=== PATIENT | female | born 1970 | race Caucasian/White ===

== ENCOUNTER 2019-04-23 11:45 | Inpatient (IN) | payer BC ==
[2019-04-23] MEDS ORDERED: HYDROmorphone 1 MG/ML Syringe IVPUSH ONE (12:42)
[2019-04-23] MEDS ORDERED: Metoclopramide 10 MG/2 ML SDV IVPUSH ONE (12:42)
[2019-04-23] MEDS ORDERED: Lactated Ringers 1,000 ML IV SCH (12:45)
--- NOTE | 2019-04-23 12:48 | EDM.PDOC ---
ED HPI GENERAL MEDICAL PROBLEM - General Chief Complaint: Abdominal Pain Stated Complaint: DIVERTICULITIS Time Seen by Provider: 04/23/19 12:35 Source of Information: Reports: Patient, RN History Limitations: Reports: Other (no old records) - History of Present Illness INITIAL COMMENTS - FREE TEXT/NARRATIVE: 48 yo female with a pHx of recurrent diverticulitis developed LLQ abdominal pain this past Monday that has progressed since then. Has felt feverish at times. Has not had a BM for the past 2 days now and is vomiting with a sense of abdominal distention. Has increased LLQ pain with coughing or moving. PHx of a lap band procedure. Onset: Gradual Onset Date: 04/20/19 Duration: Day(s): (3+), Getting Worse Location: Reports: Abdomen Quality: Reports: Ache Severity: Moderate Improves with: Reports: Rest Worsens with: Reports: Movement Context: Reports: Other (See HPI) Associated Symptoms: Reports: Fever/Chills, Loss of Appetite, Nausea/Vomiting Treatments STRETCHER AND DRIER: Reports: Other (see below) (none) Left Upper Abdomen Pain Score (Numeric/FACES): 10 - Related Data Allergies Allergy/AdvReac Type Severity Reaction Status Date / Time azithromycin [From Zithromax] Allergy Rash Verified 04/23/19 12:22 Home Meds: Home Meds NK [No Known Home Meds] 04/23/19 [History] Past Medical History HEENT History: Reports: Impaired Vision Gastrointestinal History: Reports: Diverticulosis [employer] History: Reports: Neurological History: Reports: CVA Endocrine/Metabolic History: Reports: Obesity/BMI 30+ Hematologic History: Reports: Blood Transfusion(s) - Infectious Disease History Infectious Disease History: Reports: Chicken Pox - Past Surgical History GI Surgical History: Reports: Appendectomy, Cholecystectomy, Colonoscopy, Other (See Below) Other GI Surgeries/Procedures: gastroplasty banding 2001 aprox Female Surgical History: Reports: Hysterectomy Social & Family History - Tobacco Use Smoking Status *Q: Never Smoker Second Hand Smoke Exposure: No - Caffeine Use Caffeine Use: Reports: Coffee - Alcohol Use Days Per Week of Alcohol Use: 0 - Recreational Drug Use Recreational Drug Use: No ED ROS GENERAL - Review of Systems Review Of Systems: See Below Constitutional: Reports: Fever, Chills HEENT: Reports: No Symptoms Respiratory: Reports: No Symptoms Cardiovascular: Reports: No Symptoms Endocrine: Reports: No Symptoms GI/Abdominal: Reports: Abdominal Pain, Decreased Appetite, Distension, Nausea, Vomiting. Denies: Black Stool, Bloody Stool, Constipation, Diarrhea, Hematemesis, Hematochezia : Reports: No Symptoms Musculoskeletal: Reports: No Symptoms Skin: Reports: No Symptoms Neurological: Reports: No Symptoms Psychiatric: Reports: No Symptoms ED EXAM, GI/ABD - Physical Exam Exam: See Below Exam Limited By: No Limitations General Appearance: Alert, WD/WN, No Apparent Distress Eyes: Bilateral: Normal Appearance Ears: Normal External Exam, Hearing Grossly Normal Nose: Normal Inspection, Normal Mucosa, No Blood Throat/Mouth: Normal Inspection, Normal Lips, Normal Oropharynx, Normal Voice, No Airway Compromise Head: Atraumatic, Normocephalic Neck: Normal Inspection Respiratory/Chest: No Respiratory Distress, Lungs Clear, Normal Breath Sounds, No Accessory Muscle Use Cardiovascular: Regular Rate, Rhythm, No Edema GI/Abdominal Exam: Normal Bowel Sounds, Soft, Distended (? very slight, not dull with percussion.), Guarding, Rebound, Tender (LLQ). No: No Distention Back Exam: Normal Inspection. No: CVA Tenderness (R), CVA Tenderness (L) Extremities: Normal Inspection, Normal Range of Motion, Non-Tender Neurological: Alert, Oriented, CN II-XII Intact, Normal Cognition, No Motor/ Sensory Deficits Psychiatric: Normal Affect, Normal Mood Skin Exam: Warm, Dry, Intact, Normal Color, No Rash Course - Vital Signs Text/Narrative:: Dr. Larsen called @ 1515h Last Recorded V/S: Last Vital Signs Temp 36.9 C 04/23/19 12:21 Pulse 80 04/23/19 15:03 Resp 16 04/23/19 12:21 BP 100/67 04/23/19 15:03 Pulse Ox 100 04/23/19 12:21 - Orders/Labs/Meds Orders: Active Orders 24 hr Category Date Time Status Lactated Ringers [Ringers, Lactated] 1,000 ml Med 04/23/19 12:45 Active IV ASDIRECTED Sodium Chloride 0.9% [Normal Saline] 100 ml Med 04/23/19 13:30 Active IV ASDIRECTED Sodium Chloride 0.9% [Saline Flush] Med 04/23/19 13:21 Active 10 ml FLUSH ASDIRECTED PRN Medication Orders Lactated Ringer's (Ringers, Lactated) 1,000 mls @ 150 mls/hr IV ASDIRECTED NATALIE Last Admin: 04/23/19 12:53 Dose: 150 mls/hr Sodium Chloride (Normal Saline) 100 mls @ 3 mls/sec IV ASDIRECTED NATALIE Last Admin: 04/23/19 14:13 Dose: 3 mls/sec Sodium Chloride (Saline Flush) 10 ml FLUSH ASDIRECTED PRN PRN Reason: Keep Vein Open Last Admin: 04/23/19 14:13 Dose: 10 ml Labs: Laboratory Tests 04/23/19 04/23/19 04/23/19 Range/Units 12:48 12:48 12:48 WBC 12.6 H (4.5-11.0) K/uL RBC 3.99 (3.30-5.50) M/uL Hgb 12.2 (12.0-15.0) g/dL Hct 36.7 (36.0-48.0) % MCV 92 (80-98) fL MCH 31 (27-31) pg MCHC 33 (32-36) % Plt Count 278 (150-400) K/uL Sodium 137 L (140-148) mmol/L Potassium 3.3 L (3.6-5.2) mmol/L Chloride 102 (100-108) mmol/L Carbon Dioxide 23 (21-32) mmol/L Anion Gap 15.3 H (5.0-14.0) mmol/L BUN 5 L (7-18) mg/dL Creatinine 0.8 (0.6-1.0) mg/dL Est Cr Clr Drug Dosing 76.54 mL/min Estimated GFR (MDRD) > 60 (>60) Glucose 102 (74-106) mg/dL Calcium 9.3 (8.5-10.1) mg/dL C-Reactive Protein 19.29 H (0.0-0.3) mg/dL Urine Color Urine Appearance Urine pH (4.5-8.0) Ur Specific [place] (1.008-1.030) Urine Protein (NEGATIVE) mg/dL Urine Glucose (UA) (NEGATIVE) mg/dL Urine Ketones (NEGATIVE) mg/dL Urine Occult Blood (NEGATIVE) Urine Nitrite (NEGATIVE) Urine Bilirubin (NEGATIVE) Urine Urobilinogen (NORMAL) mg/dL Ur Leukocyte Esterase (NEGATIVE) Urine RBC (0-5) Urine WBC (0-5) Ur Epithelial Cells Amorphous Sediment Urine Bacteria Urine Mucus 04/23/19 Range/Units 13:39 WBC (4.5-11.0) K/uL RBC (3.30-5.50) M/uL Hgb (12.0-15.0) g/dL Hct (36.0-48.0) % MCV (80-98) fL MCH (27-31) pg MCHC (32-36) % Plt Count (150-400) K/uL Sodium (140-148) mmol/L Potassium (3.6-5.2) mmol/L Chloride (100-108) mmol/L Carbon Dioxide (21-32) mmol/L Anion Gap (5.0-14.0) mmol/L BUN (7-18) mg/dL Creatinine (0.6-1.0) mg/dL Est Cr Clr Drug Dosing mL/min Estimated GFR (MDRD) (>60) Glucose (74-106) mg/dL Calcium (8.5-10.1) mg/dL C-Reactive Protein (0.0-0.3) mg/dL Urine Color Yellow Urine Appearance Cloudy Urine pH 6.0 (4.5-8.0) Ur Specific [place] 1.015 (1.008-1.030) Urine Protein Negative (NEGATIVE) mg/dL Urine Glucose (UA) Normal (NEGATIVE) mg/dL Urine Ketones 50 H (NEGATIVE) mg/dL Urine Occult Blood Negative (NEGATIVE) Urine Nitrite Negative (NEGATIVE) Urine Bilirubin Negative (NEGATIVE) Urine Urobilinogen Normal (NORMAL) mg/dL Ur Leukocyte Esterase Negative (NEGATIVE) Urine RBC 0-5 (0-5) Urine WBC 0-5 (0-5) Ur Epithelial Cells Many Amorphous Sediment Moderate Urine Bacteria Many Urine Mucus Many Meds: Medications Generic Name Dose Route Start Last Admin Trade Name Freq PRN Reason Stop Dose Admin Lactated Ringer's 1,000 mls @ 150 mls/hr 04/23/19 12:45 04/23/19 12:53 Ringers, Lactated IV 150 mls/hr ASDIRECTED NATALIE Administration Sodium Chloride 100 mls @ 3 mls/sec 04/23/19 13:30 04/23/19 14:13 Normal Saline IV 3 mls/sec ASDIRECTED NATALIE Administration Sodium Chloride 10 ml 04/23/19 13:21 04/23/19 14:13 Saline Flush FLUSH 10 ml ASDIRECTED PRN Administration Keep Vein Open Discontinued Medications Generic Name Dose Route Start Last Admin Trade Name Belen PRN Reason Stop Dose Admin Hydromorphone HCl 1 mg 04/23/19 12:42 04/23/19 13:15 Dilaudid IVPUSH 04/23/19 12:43 1 mg ONETIME ONE Administration Iopamidol 150 ml 04/23/19 13:30 04/23/19 14:12 Isovue-300 (61%) IV 138 ml . DIRECTED NATALIE Administration Metoclopramide HCl 10 mg 04/23/19 12:42 04/23/19 13:15 Reglan IVPUSH 04/23/19 12:43 10 mg ONETIME ONE Administration - Radiology Interpretation Free Text/Narrative:: CT abd/pelvis with IV contrast- Departure - Departure Time of Disposition: 15:25 Disposition: Admitted As Inpatient 65 Condition: Fair Clinical Impression: Hypokalemia, Colitis - Discharge Information *PRESCRIPTION DRUG MONITORING PROGRAM REVIEWED*: No *COPY OF PRESCRIPTION DRUG MONITORING REPORT IN PATIENT EDIS: No Referrals: Bernice Zhong DO [Primary Care Provider] - Forms: ED Department Discharge - My Orders Last 24 Hours: My Active Orders 04/23/19 12:45 Lactated Ringers [Ringers, Lactated] 1,000 ml IV ASDIRECTED 04/23/19 13:21 Sodium Chloride 0.9% [Saline Flush] 10 ml FLUSH ASDIRECTED PRN 04/23/19 13:30 Sodium Chloride 0.9% [Normal Saline] 100 ml IV ASDIRECTED - Assessment/Plan Last 24 Hours: My Active Orders 04/23/19 12:45 Lactated Ringers [Ringers, Lactated] 1,000 ml IV ASDIRECTED 04/23/19 13:21 Sodium Chloride 0.9% [Saline Flush] 10 ml FLUSH ASDIRECTED PRN 04/23/19 13:30 Sodium Chloride 0.9% [Normal Saline] 100 ml IV ASDIRECTED
[2019-04-23] MEDS ORDERED: Sodium Chloride 0.9% 10 ML Syringe FLUSH PRN ×2 (13:21→16:31)
[2019-04-23] MEDS ORDERED: Iopamidol 612 MG/ML 150 ML Bottle IV SCH (13:30)
[2019-04-23] MEDS ORDERED: Sodium Chloride 0.9% 100 ML IV SCH (13:30)
--- NOTE | 2019-04-23 14:54 | CRLCT ---
INDICATION: Right lower quadrant pain with elevated white blood cell count TECHNIQUE: CT abdomen and pelvis acquired with IV contrast. 130 cc Isovue-300 COMPARISON: None FINDINGS: Lower chest: Unremarkable. Liver: Unremarkable. Spleen: Unremarkable. Pancreas: Unremarkable. Gallbladder and bile ducts: Cholecystectomy. Kidneys: Unremarkable. Adrenal glands: Unremarkable. GI tract: Thickening of the distal descending and proximal sigmoid colon with adjacent pericolonic fat stranding. This may represent colitis given the long segment involvement or possibly diverticulitis. Appendix is not visualized. Vascular structures: Unremarkable. Lymph nodes: Unremarkable. Miscellaneous: Unremarkable. No free air. Small amount of fluid in the pelvis. Pelvic Organs: Mild diffuse bladder wall thickening Bones: Unremarkable for age. IMPRESSION: Long segment thickening of the descending and sigmoid colon with adjacent pericolonic fat stranding. Findings may represent colitis given his long segment involvement although diverticulitis cannot be excluded. Appendix not visualized. Dictated by Fred Sarabia MD @ 04/23/2019 2:52:58 PM Please note that all CT scans at this facility use dose modulation, iterative reconstruction, and/or weight-based dosing when appropriate to reduce radiation dose to as low as reasonably achievable. Dictated by: Fred Sarabia MD @ 04/23/2019 14:53:35 (Electronically Signed)
--- NOTE | 2019-04-23 15:50 | PCM.HP ---
H&P History of Present Illness - General Date of Service: 04/23/19 Admit Problem/Dx: Admission Diagnosis/Problem Admission Diagnosis/Problem Diverticulitis Source of Information: Patient, Family, Provider, RN Notes Reviewed History Limitations: Reports: No Limitations - History of Present Illness Initial Comments - Free Text/Narative: Ms. Vazquez is a 48-year-old woman who was admitted through the emergency department with left lower quadrant abdominal pain, diarrhea, nausea, and vomiting. She has had a history of recurrent episodes of diverticulitis. Recent symptoms have been consistent with that but more intense than his noted in the past. Pain is described as an intense ache with episodes of sharper pain occurring in the left lower quadrant, there is been no radiation, no precipitating or relieving factors. Pain is been present now over the past 4 days. She has had nausea vomiting and episodes of diarrhea. She has not taken her check temperature but has felt feverish and also had chills with decreased appetite. On evaluation in the emergency department white blood cell count is modestly elevated, CRP is significantly elevated. CT scan of the abdomen shows an area of the descending and sigmoid colon with significant inflammation. This area is larger than would typically be expected with diverticulitis and may represent underlying colitis. Left Upper Abdomen Pain Score (Numeric/FACES): 10 - Related Data Allergies/Adverse Reactions: Allergies Allergy/AdvReac Type Severity Reaction Status Date / Time azithromycin [From Zithromax] Allergy Rash Verified 04/23/19 12:22 Home Medications: Home Meds NK [No Known Home Meds] 04/23/19 [History] Past Medical History HEENT History: Reports: Impaired Vision Gastrointestinal History: Reports: Diverticulosis [employer] WORK[employer] History: Reports: Neurological History: Reports: CVA Endocrine/Metabolic History: Reports: Obesity/BMI 30+ Hematologic History: Reports: Blood Transfusion(s) - Infectious Disease History Infectious Disease History: Reports: Chicken Pox - Past Surgical History GI Surgical History: Reports: Appendectomy, Cholecystectomy, Colonoscopy, Other (See Below) Other GI Surgeries/Procedures: gastroplasty banding 2000 aprox Female Surgical History: Reports: Hysterectomy Social & Family History - Tobacco Use Smoking Status *Q: Never Smoker Second Hand Smoke Exposure: No - Caffeine Use Caffeine Use: Reports: Coffee - Alcohol Use Days Per Week of Alcohol Use: 0 - Recreational Drug Use Recreational Drug Use: No H&P Review of Systems - Review of Systems: Review Of Systems: See Below General: Reports: Fever, Chills, Weakness, Decreased Appetite HEENT: Reports: No Symptoms Pulmonary: Reports: No Symptoms Cardiovascular: Reports: No Symptoms Gastrointestinal: Reports: Abdominal Pain, Diarrhea, Decreased Appetite, Distension, Nausea, Vomiting. Denies: Constipation, Difficulty Swallowing, Hematochezia, Melena Genitourinary: Reports: No Symptoms Musculoskeletal: Reports: No Symptoms Skin: Reports: No Symptoms Psychiatric: Reports: No Symptoms Neurological: Reports: No Symptoms Hematologic/Lymphatic: Reports: No Symptoms Immunologic: Reports: No Symptoms Exam - Exam Exam: See Below - Vital Signs Vital Signs: Last Vital Signs Temp 98.4 F 04/23/19 12:21 Pulse 80 04/23/19 15:03 Resp 16 04/23/19 12:21 BP 100/67 04/23/19 15:03 Pulse Ox 100 04/23/19 12:21 Weight: 203 lb 0.732 oz - Exam General: Alert, Oriented, Cooperative, Moderate Distress HEENT: Conjunctiva Clear, Hearing Intact, Mucosa Moist & [place], Normal Nasal Septum, Posterior Pharynx Clear, Pupils Equal Neck: Supple, Trachea Midline, +2 Carotid Pulse wo Bruit Lungs: Clear to Auscultation, Normal Respiratory Effort Cardiovascular: Regular Rate, Regular Rhythm, Normal S1, Normal S2. No: Systolic Murmur, Diastolic Murmur GI/Abdominal Exam: Soft, No Organomegaly, Distended, Rebound, Tender. No: Guarding, Rigid Back Exam: Normal Inspection, Full Range of Motion Extremities: Non-Tender, No Pedal Edema Skin: Warm, Dry, Intact Neurological: Cranial Nerves Intact, Strength Equal Bilateral, Normal Speech, Normal Tone, Sensation Intact. No: Focal Deficit Neuro Extensive - Mental Status: Alert, Oriented x3, Normal Mood/Affect, Normal Cognition, Memory Intact - Patient Data Lab Results Last 24 hrs: Laboratory Results - last 24 hr 04/23/19 04/23/19 04/23/19 Range/Units 12:48 12:48 12:48 WBC 12.6 H (4.5-11.0) K/uL RBC 3.99 (3.30-5.50) M/uL Hgb 12.2 (12.0-15.0) g/dL Hct 36.7 (36.0-48.0) % MCV 92 (80-98) fL MCH 31 (27-31) pg MCHC 33 (32-36) % Plt Count 278 (150-400) K/uL Sodium 137 L (140-148) mmol/L Potassium 3.3 L (3.6-5.2) mmol/L Chloride 102 (100-108) mmol/L Carbon Dioxide 23 (21-32) mmol/L Anion Gap 15.3 H (5.0-14.0) mmol/L BUN 5 L (7-18) mg/dL Creatinine 0.8 (0.6-1.0) mg/dL Est Cr Clr Drug Dosing 76.54 mL/min Estimated GFR (MDRD) > 60 (>60) Glucose 102 (74-106) mg/dL Calcium 9.3 (8.5-10.1) mg/dL C-Reactive Protein 19.29 H (0.0-0.3) mg/dL Urine Color Urine Appearance Urine pH (4.5-8.0) Ur Specific [place] (1.008-1.030) Urine Protein (NEGATIVE) mg/dL Urine Glucose (UA) (NEGATIVE) mg/dL Urine Ketones (NEGATIVE) mg/dL Urine Occult Blood (NEGATIVE) Urine Nitrite (NEGATIVE) Urine Bilirubin (NEGATIVE) Urine Urobilinogen (NORMAL) mg/dL Ur Leukocyte Esterase (NEGATIVE) Urine RBC (0-5) Urine WBC (0-5) Ur Epithelial Cells Amorphous Sediment Urine Bacteria Urine Mucus 04/23/19 Range/Units 13:39 WBC (4.5-11.0) K/uL RBC (3.30-5.50) M/uL Hgb (12.0-15.0) g/dL Hct (36.0-48.0) % MCV (80-98) fL MCH (27-31) pg MCHC (32-36) % Plt Count (150-400) K/uL Sodium (140-148) mmol/L Potassium (3.6-5.2) mmol/L Chloride (100-108) mmol/L Carbon Dioxide (21-32) mmol/L Anion Gap (5.0-14.0) mmol/L BUN (7-18) mg/dL Creatinine (0.6-1.0) mg/dL Est Cr Clr Drug Dosing mL/min Estimated GFR (MDRD) (>60) Glucose (74-106) mg/dL Calcium (8.5-10.1) mg/dL C-Reactive Protein (0.0-0.3) mg/dL Urine Color Yellow Urine Appearance Cloudy Urine pH 6.0 (4.5-8.0) Ur Specific [place] 1.015 (1.008-1.030) Urine Protein Negative (NEGATIVE) mg/dL Urine Glucose (UA) Normal (NEGATIVE) mg/dL Urine Ketones 50 H (NEGATIVE) mg/dL Urine Occult Blood Negative (NEGATIVE) Urine Nitrite Negative (NEGATIVE) Urine Bilirubin Negative (NEGATIVE) Urine Urobilinogen Normal (NORMAL) mg/dL Ur Leukocyte Esterase Negative (NEGATIVE) Urine RBC 0-5 (0-5) Urine WBC 0-5 (0-5) Ur Epithelial Cells Many Amorphous Sediment Moderate Urine Bacteria Many Urine Mucus Many Result Diagrams: 04/23/19 12:48 04/23/19 12:48 *Q Meaningful Use (ADM) - VTE Risk Assess *Q Each Risk Factor Represents 1 Point: Age 41 - 59 years, Obesity ( BMI > 25 kg/m2 ) Total Score 1 Point Risk Factors: 2 Each Risk Factor Represents 2 Points: None Total Score 2 Point Risk Factors: 0 Each Risk Factor Represents 3 Points: None Total Score 3 Point Risk Factors: 0 Each Risk Factor Represents 5 Points: None Total Score 5 Point Risk Factors: 0 Venous Thromboembolism Risk Factor Score *Q: 2 Problem List Initiated/Reviewed/Updated: Yes Orders Last 24hrs: Active Orders 24 hr Category Date Time Status Patient Status Manage Transfer [TRANSFER] Routine ADT 04/23/19 15:37 Active Lactated Ringers [Ringers, Lactated] 1,000 ml Med 04/23/19 12:45 Active IV ASDIRECTED Sodium Chloride 0.9% [Normal Saline] 100 ml Med 04/23/19 13:30 Active IV ASDIRECTED Sodium Chloride 0.9% [Saline Flush] Med 04/23/19 13:21 Active 10 ml FLUSH ASDIRECTED PRN Resuscitation Status Routine Resus Stat 04/23/19 15:39 Ordered Medication Orders Lactated Ringer's (Ringers, Lactated) 1,000 mls @ 150 mls/hr IV ASDIRECTED NATALIE Last Admin: 04/23/19 12:53 Dose: 150 mls/hr Sodium Chloride (Normal Saline) 100 mls @ 3 mls/sec IV ASDIRECTED NATALIE Last Admin: 04/23/19 14:13 Dose: 3 mls/sec Sodium Chloride (Saline Flush) 10 ml FLUSH ASDIRECTED PRN PRN Reason: Keep Vein Open Last Admin: 04/23/19 14:13 Dose: 10 ml Assessment/Plan Comment:: ASSESSMENT AND PLAN DIVERTICULITIS/COLITIS-symptoms consistent with previous episodes of diverticulitis although more intense and prolonged. Elevation white blood cell count, CRP, with evidence of colon inflammation in the descending and sigmoid colon seen on CT scan. -Nothing by mouth -IV fluids for hydration -Pain and nausea medication as needed -IV Unasyn and Azactam -Consider colonoscopy for further evaluation RECENT TIA-symptoms of left-sided weakness 5 days ago, evaluated with hospitalization in [facility]. No underlying etiology found and no further evaluation or management recommended MAINTENANCE ISSUES -DVT prophylaxis; scuds -GI prophylaxis; Protonix 40 mg IV daily -Hanson catheter; not indicated -Nutrition; nothing by mouth -Nicotine dependence; not required CODE STATUS-FULL CODE ADMISSION STATUS-patient will be admitted to inpatient status, expect at least a 2 night hospital stay for evaluation and management of problems as outlined above. At the time of this admission I do not reasonably expected evaluation and management of this problem will require more than a 96 hour hospital stay. DISPOSITION-anticipate discharge to home after the hospital stay. PRIMARY CARE PROVIDER-she is from [facility] where she receives her primary care
[2019-04-23] MEDS ORDERED: Acetaminophen 325 MG Tab PO PRN (16:31)
[2019-04-23] MEDS ORDERED: HYDROmorphone 0.5 MG/0.5 ML Syringe IVPUSH PRN (16:31)
[2019-04-23] MEDS ORDERED: Ondansetron 4 MG/2 ML SDV IV PRN (16:31)
[2019-04-23] MEDS: Ampicillin/Sulbactam Na 1.5 GM in Sodium Chloride 0.9% 50 ML IV SCH ×2 (17:17→22:38)
[2019-04-23] MEDS: Aztreonam 1 GM in Sodium Chloride 0.9% 100 ML IV SCH (19:49)
[2019-04-23] MEDS: Pantoprazole 40 MG Vial IVPUSH SCH (19:53)
[2019-04-23] MEDS: Acetaminophen/HYDROcodone 325-5 MG Tab PO PRN (19:58)
[2019-04-24] MEDS: Acetaminophen/HYDROcodone 325-5 MG Tab PO PRN ×6 (00:10→20:52)
[2019-04-24] MEDS: Lactated Ringers 1,000 ML IV SCH ×2 (00:10→10:23)
[2019-04-24] MEDS: Aztreonam 1 GM in Sodium Chloride 0.9% 100 ML IV SCH ×3 (02:47→17:27)
[2019-04-24] MEDS: Ampicillin/Sulbactam Na 1.5 GM in Sodium Chloride 0.9% 50 ML IV SCH ×4 (03:58→22:05)
[2019-04-24] MEDS ORDERED: Potassium Chloride 20 MEQ Tab.ER PO ONE ×2 (09:00→17:00)
[2019-04-24] MEDS: Potassium Chloride 20 MEQ, Lidocaine 1% 2 ML in Sodium Chloride 0.9% 100 ML IV SCH ×2 (11:36→13:48)
--- NOTE | 2019-04-24 12:05 | PCM.PN ---
- General Info Date of Service: 04/24/19 Subjective Update: Ms. Vazquez has improved since admission with less abdominal pain, pain significantly improved but not totally resolved. She has remained afebrile and has been hemodynamically stable, white blood cell count has normalized. Functional Status: Reports: Pain Controlled, Ambulating, Urinating - Review of Systems General: Reports: Weakness. Denies: Fever, Chills Pulmonary: Reports: No Symptoms Cardiovascular: Reports: No Symptoms Gastrointestinal: Reports: Abdominal Pain, Decreased Appetite. Denies: Diarrhea , Difficulty Swallowing, Nausea, Vomiting - Patient Data Vitals - Most Recent: Last Vital Signs Temp 98.8 F 04/24/19 11:52 Pulse 92 04/24/19 11:52 Resp 16 04/24/19 11:52 BP 105/69 04/24/19 11:52 Pulse Ox 99 04/24/19 11:52 Weight - Most Recent: 204 lb I&O - Last 24 Hours: Intake & Output 04/23/19 04/24/19 04/24/19 22:59 06:59 14:59 Intake Total 150 150 270 Output Total 100 350 450 Balance 50 -200 -180 Lab Results Last 24 Hours: Laboratory Results - last 24 hr 04/23/19 04/23/19 04/23/19 Range/Units 12:48 12:48 12:48 WBC 12.6 H (4.5-11.0) K/uL RBC 3.99 (3.30-5.50) M/uL Hgb 12.2 (12.0-15.0) g/dL Hct 36.7 (36.0-48.0) % MCV 92 (80-98) fL MCH 31 (27-31) pg MCHC 33 (32-36) % Plt Count 278 (150-400) K/uL Neut % (Auto) (36-66) % Lymph % (Auto) (24-44) % [place] % (Auto) (2-6) % Eos % (Auto) (2-4) % Baso % (Auto) (0-1) % Sodium 137 L (140-148) mmol/L Potassium 3.3 L (3.6-5.2) mmol/L Chloride 102 (100-108) mmol/L Carbon Dioxide 23 (21-32) mmol/L Anion Gap 15.3 H (5.0-14.0) mmol/L BUN 5 L (7-18) mg/dL Creatinine 0.8 (0.6-1.0) mg/dL Est Cr Clr Drug Dosing 76.54 mL/min Estimated GFR (MDRD) > 60 (>60) Glucose 102 (74-106) mg/dL Calcium 9.3 (8.5-10.1) mg/dL C-Reactive Protein 19.29 H (0.0-0.3) mg/dL Urine Color Urine Appearance Urine pH (4.5-8.0) Ur Specific [place] (1.008-1.030) Urine Protein (NEGATIVE) mg/dL Urine Glucose (UA) (NEGATIVE) mg/dL Urine Ketones (NEGATIVE) mg/dL Urine Occult Blood (NEGATIVE) Urine Nitrite (NEGATIVE) Urine Bilirubin (NEGATIVE) Urine Urobilinogen (NORMAL) mg/dL Ur Leukocyte Esterase (NEGATIVE) Urine RBC (0-5) Urine WBC (0-5) Ur Epithelial Cells Amorphous Sediment Urine Bacteria Urine Mucus 04/23/19 04/24/19 04/24/19 Range/Units 13:39 05:07 05:07 WBC 9.9 (4.5-11.0) K/uL RBC 3.57 (3.30-5.50) M/uL Hgb 11.0 L (12.0-15.0) g/dL Hct 33.2 L (36.0-48.0) % MCV 93 (80-98) fL MCH 31 (27-31) pg MCHC 33 (32-36) % Plt Count 256 (150-400) K/uL Neut % (Auto) 72 H (36-66) % Lymph % (Auto) 14 L (24-44) % [place] % (Auto) 13 H (2-6) % Eos % (Auto) 1 L (2-4) % Baso % (Auto) 0 (0-1) % Sodium 137 L (140-148) mmol/L Potassium 3.1 L (3.6-5.2) mmol/L Chloride 103 (100-108) mmol/L Carbon Dioxide 23 (21-32) mmol/L Anion Gap 14.1 H (5.0-14.0) mmol/L BUN 5 L (7-18) mg/dL Creatinine 0.6 (0.6-1.0) mg/dL Est Cr Clr Drug Dosing 102.06 mL/min Estimated GFR (MDRD) > 60 (>60) Glucose 97 (74-106) mg/dL Calcium 8.7 (8.5-10.1) mg/dL C-Reactive Protein (0.0-0.3) mg/dL Urine Color Yellow Urine Appearance Cloudy Urine pH 6.0 (4.5-8.0) Ur Specific [place] 1.015 (1.008-1.030) Urine Protein Negative (NEGATIVE) mg/dL Urine Glucose (UA) Normal (NEGATIVE) mg/dL Urine Ketones 50 H (NEGATIVE) mg/dL Urine Occult Blood Negative (NEGATIVE) Urine Nitrite Negative (NEGATIVE) Urine Bilirubin Negative (NEGATIVE) Urine Urobilinogen Normal (NORMAL) mg/dL Ur Leukocyte Esterase Negative (NEGATIVE) Urine RBC 0-5 (0-5) Urine WBC 0-5 (0-5) Ur Epithelial Cells Many Amorphous Sediment Moderate Urine Bacteria Many Urine Mucus Many Med Orders - Current: Current Medications Acetaminophen (Tylenol) 650 mg PO Q4H PRN PRN Reason: Pain (Mild 1-3)/fever Hydrocodone Bitart/Acetaminophen ([place] 325-5 Mg) 1 tab PO Q4H PRN PRN Reason: Pain (moderate 4-6) Last Admin: 04/24/19 08:32 Dose: 1 tab Hydromorphone HCl (Dilaudid) 0.5 mg IVPUSH Q2H PRN PRN Reason: Pain (severe 7-10) Last Admin: 04/23/19 17:03 Dose: 0.5 mg Ampicillin Sodium/Sulbactam (Sodium 1.5 gm/ Sodium Chloride) 50 mls @ 100 mls/ hr IV Q6HR [facility] Last Admin: 04/24/19 10:25 Dose: 100 mls/hr Aztreonam 1 gm/ Sodium (Chloride) 100 mls @ 200 mls/hr IV Q8H [facility] Last Admin: 04/24/19 10:59 Dose: 200 mls/hr Potassium Chloride 20 meq/Lidocaine HCl 2 ml/ Sodium Chloride 112 mls @ 56 mls/ hr IV Q2H [facility] Stop: 04/24/19 13:59 Last Admin: 04/24/19 11:36 Dose: 56 mls/hr Ondansetron HCl (Zofran) 4 mg IV Q4H PRN PRN Reason: Nausea/Vomiting Pantoprazole Sodium (Protonix Iv) 40 mg IVPUSH Q24H [facility] Last Admin: 04/23/19 19:53 Dose: 40 mg Potassium Chloride (Klor-Con M20) 40 meq PO ONETIME ONE Stop: 04/24/19 17:01 Sodium Chloride (Saline Flush) 10 ml FLUSH ASDIRECTED PRN PRN Reason: Keep Vein Open Discontinued Medications Hydromorphone HCl (Dilaudid) 1 mg IVPUSH ONETIME ONE Stop: 04/23/19 12:43 Last Admin: 04/23/19 13:15 Dose: 1 mg Lactated Ringer's (Ringers, Lactated) 1,000 mls @ 150 mls/hr IV ASDIRECTED [facility] Last Admin: 04/23/19 12:53 Dose: 150 mls/hr Sodium Chloride (Normal Saline) 100 mls @ 3 mls/sec IV ASDIRECTED [facility] Last Admin: 04/23/19 14:13 Dose: 3 mls/sec Lactated Ringer's (Ringers, Lactated) 1,000 mls @ 125 mls/hr IV ASDIRECTED [facility] Last Admin: 04/24/19 10:23 Dose: 125 mls/hr Iopamidol (Isovue-300 (61%)) 150 ml IV . DIRECTED [facility] Last Admin: 04/23/19 14:12 Dose: 138 ml Metoclopramide HCl (Reglan) 10 mg IVPUSH ONETIME ONE Stop: 04/23/19 12:43 Last Admin: 04/23/19 13:15 Dose: 10 mg Potassium Chloride (Klor-Con M20) 40 meq PO ONETIME ONE Stop: 04/24/19 09:01 Last Admin: 04/24/19 09:22 Dose: 40 meq Sodium Chloride (Saline Flush) 10 ml FLUSH ASDIRECTED PRN PRN Reason: Keep Vein Open Last Admin: 04/23/19 14:13 Dose: 10 ml - Exam General: Alert, Oriented, Cooperative, Mild Distress Lungs: Clear to Auscultation, Normal Respiratory Effort Cardiovascular: Regular Rate, Regular Rhythm, No Murmurs GI/Abdominal Exam: Soft, No Organomegaly, Distended, Tender (Left lower quadrant ). No: Guarding, Rigid, Rebound Extremities: Non-Tender, No Pedal Edema - Problem List Review Problem List Initiated/Reviewed/Updated: Yes - My Orders Last 24 Hours: My Active Orders 04/23/19 15:39 Resuscitation Status Routine 04/23/19 16:31 Patient Status [ADT] Routine Ambulate [RC] QID Height and Weight [RC] DAILY Intake and Output [RC] QSHIFT Notify Provider Vital Signs [RC] ASDIRECTED Oxygen Therapy [RC] PRN Peripheral IV Care [RC] . DIRECTED Up ad [place] [RC] ASDIRECTED Up to Chair [RC] QID VTE/DVT Education [RC] Per Unit Routine Vital Signs [RC] Q4H Acetaminophen [Tylenol] 650 mg PO Q4H PRN Acetaminophen/HYDROcodone [[place] 325-5 MG] 1 tab PO Q4H PRN Ampicillin/Sulbactam Na [Unasyn] 1.5 gm Sodium Chloride 0.9% [Normal Saline] 50 ml IV Q6HR HYDROmorphone [Dilaudid] 0.5 mg IVPUSH Q2H PRN Ondansetron [Zofran] 4 mg IV Q4H PRN Sodium Chloride 0.9% [Saline Flush] 10 ml FLUSH ASDIRECTED PRN Peripheral IV Insertion Adult [OM.PC] Routine Sequential Compression Device [OM.PC] Per Unit Routine 04/23/19 18:00 Aztreonam [Azactam] 1 gm Sodium Chloride 0.9% [Normal Saline] 100 ml IV Q8H Pantoprazole [ProTONIX IV] 40 mg IVPUSH Q24H 04/23/19 19:21 Communication Order [RC] ROUTINE 04/24/19 10:00 Potassium Chloride 20 meq Lidocaine 1% [Xylocaine 1%] 2 ml Sodium Chloride 0.9 % [Normal Saline] 100 ml IV Q2H 04/24/19 12:00 Convert IV to Saline Lock [OM.PC] Routine 04/24/19 17:00 Potassium Chloride [Klor-Con M20] 40 meq PO ONETIME ONE 04/24/19 Lunch Full Liquid Diet [DIET] - Plan Plan:: ASSESSMENT AND PLAN DIVERTICULITIS/COLITIS-symptoms consistent with previous episodes of diverticulitis although more intense and prolonged. Elevation white blood cell count, CRP, with evidence of colon inflammation in the descending and sigmoid colon seen on CT scan. Improved from admission with much less pain, no significant temperature elevation, normalization of white blood cell count -Full liquid diet -Saline lock IV -Pain and nausea medication as needed -IV Unasyn and Azactam -Consider colonoscopy for further evaluation RECENT TIA-symptoms of left-sided weakness 5 days ago, evaluated with hospitalization in [facility]. No underlying etiology found and no further evaluation or management recommended MAINTENANCE ISSUES -DVT prophylaxis; scuds -GI prophylaxis; Protonix 40 mg IV daily -Hanson catheter; not indicated -Nutrition; full liquid diet -Nicotine dependence; not required CODE STATUS-FULL CODE ADMISSION STATUS-patient will be admitted to inpatient status, expect at least a 2 night hospital stay for evaluation and management of problems as outlined above. At the time of this admission I do not reasonably expected evaluation and management of this problem will require more than a 96 hour hospital stay. DISPOSITION-anticipate discharge to home after the hospital stay. PRIMARY CARE PROVIDER-she is from [facility] where she receives her primary care in [facility]
[2019-04-24] MEDS: Pantoprazole 40 MG Vial IVPUSH SCH (17:27)
[2019-04-24] MEDS ORDERED: Bisacodyl 10 MG Supp RECTAL ONE (21:39)
[2019-04-24] MEDS: Docusate Sodium 100 MG Cap PO SCH (22:04)
[2019-04-25] MEDS: Acetaminophen/HYDROcodone 325-5 MG Tab PO PRN ×5 (00:56→22:48)
[2019-04-25] MEDS: Aztreonam 1 GM in Sodium Chloride 0.9% 100 ML IV SCH ×3 (01:06→18:02)
[2019-04-25] MEDS: Ampicillin/Sulbactam Na 1.5 GM in Sodium Chloride 0.9% 50 ML IV SCH ×4 (04:26→22:08)
[2019-04-25] MEDS: Docusate Sodium 100 MG Cap PO SCH ×2 (09:13→20:46)
--- NOTE | 2019-04-25 12:10 | PCM.PN ---
- General Info Date of Service: 04/25/19 Subjective Update: Ms. Luo continues to show slow improvement there's been modest further in improvement in her left lower quadrant abdominal pain, it has not yet resolved. Oral intake has remained relatively poor. Functional Status: Reports: Ambulating, Urinating - Review of Systems General: Reports: Weakness. Denies: Fever, Chills Pulmonary: Reports: No Symptoms Cardiovascular: Reports: No Symptoms Gastrointestinal: Reports: Abdominal Pain, Decreased Appetite, Diarrhea. Denies : Difficulty Swallowing, Hematochezia, Melena, Nausea, Vomiting - Patient Data Vitals - Most Recent: Last Vital Signs Temp 99.6 F 04/25/19 08:00 Pulse 91 04/25/19 08:00 Resp 16 04/25/19 08:00 BP 133/88 04/25/19 08:00 Pulse Ox 96 04/25/19 08:00 Weight - Most Recent: 204 lb 0.005 oz I&O - Last 24 Hours: Intake & Output 04/24/19 04/25/19 04/25/19 22:59 06:59 14:59 Intake Total 120 600 Balance 120 600 Lab Results Last 24 Hours: Laboratory Results - last 24 hr 04/25/19 Range/Units 09:37 Sodium 135 L (140-148) mmol/L Potassium 3.7 (3.6-5.2) mmol/L Chloride 101 (100-108) mmol/L Carbon Dioxide 26 (21-32) mmol/L Anion Gap 11.7 (5.0-14.0) mmol/L BUN 3 L (7-18) mg/dL Creatinine 0.5 L (0.6-1.0) mg/dL Est Cr Clr Drug Dosing 122.27 mL/min Estimated GFR (MDRD) > 60 (>60) Glucose 113 H (74-106) mg/dL Calcium 9.0 (8.5-10.1) mg/dL Med Orders - Current: Current Medications Acetaminophen (Tylenol) 650 mg PO Q4H PRN PRN Reason: Pain (Mild 1-3)/fever Hydrocodone Bitart/Acetaminophen ([place] 325-5 Mg) 1 tab PO Q4H PRN PRN Reason: Pain (moderate 4-6) Last Admin: 04/25/19 06:43 Dose: 1 tab Bisacodyl (Dulcolax) 10 mg RECTAL ONETIME ONE Stop: 04/25/19 12:01 Docusate Sodium (Colace) 100 mg PO BID [facility] Last Admin: 04/25/19 09:13 Dose: 100 mg Hydromorphone HCl (Dilaudid) 0.5 mg IVPUSH Q2H PRN PRN Reason: Pain (severe 7-10) Last Admin: 04/23/19 17:03 Dose: 0.5 mg Ampicillin Sodium/Sulbactam (Sodium 1.5 gm/ Sodium Chloride) 50 mls @ 100 mls/ hr IV Q6HR [facility] Last Admin: 04/25/19 11:02 Dose: 100 mls/hr Aztreonam 1 gm/ Sodium (Chloride) 100 mls @ 200 mls/hr IV Q8H [facility] Last Admin: 04/25/19 11:03 Dose: 200 mls/hr Ondansetron HCl (Zofran) 4 mg IV Q4H PRN PRN Reason: Nausea/Vomiting Pantoprazole Sodium (Protonix Iv) 40 mg IVPUSH Q24H [facility] Last Admin: 04/24/19 17:27 Dose: 40 mg Sodium Chloride (Saline Flush) 10 ml FLUSH ASDIRECTED PRN PRN Reason: Keep Vein Open Discontinued Medications Bisacodyl (Dulcolax) 10 mg RECTAL ONETIME ONE Stop: 04/24/19 21:40 Last Admin: 04/24/19 22:04 Dose: 10 mg Hydromorphone HCl (Dilaudid) 1 mg IVPUSH ONETIME ONE Stop: 04/23/19 12:43 Last Admin: 04/23/19 13:15 Dose: 1 mg Lactated Ringer's (Ringers, Lactated) 1,000 mls @ 150 mls/hr IV ASDIRECTED [facility] Last Admin: 04/23/19 12:53 Dose: 150 mls/hr Sodium Chloride (Normal Saline) 100 mls @ 3 mls/sec IV ASDIRECTED [facility] Last Admin: 04/23/19 14:13 Dose: 3 mls/sec Lactated Ringer's (Ringers, Lactated) 1,000 mls @ 125 mls/hr IV ASDIRECTED [facility] Last Admin: 04/24/19 10:23 Dose: 125 mls/hr Potassium Chloride 20 meq/Lidocaine HCl 2 ml/ Sodium Chloride 112 mls @ 56 mls/ hr IV Q2H [facility] Stop: 04/24/19 13:59 Last Admin: 04/24/19 13:48 Dose: 56 mls/hr Iopamidol (Isovue-300 (61%)) 150 ml IV . DIRECTED [facility] Last Admin: 04/23/19 14:12 Dose: 138 ml Metoclopramide HCl (Reglan) 10 mg IVPUSH ONETIME ONE Stop: 04/23/19 12:43 Last Admin: 04/23/19 13:15 Dose: 10 mg Potassium Chloride (Klor-Con M20) 40 meq PO ONETIME ONE Stop: 04/24/19 09:01 Last Admin: 04/24/19 09:22 Dose: 40 meq Potassium Chloride (Klor-Con M20) 40 meq PO ONETIME ONE Stop: 04/24/19 17:01 Last Admin: 04/24/19 16:04 Dose: 40 meq Sodium Chloride (Saline Flush) 10 ml FLUSH ASDIRECTED PRN PRN Reason: Keep Vein Open Last Admin: 04/23/19 14:13 Dose: 10 ml - Exam Quality Assessment: DVT Prophylaxis General: Alert, Oriented, Cooperative, Moderate Distress Lungs: Clear to Auscultation, Normal Respiratory Effort Cardiovascular: Regular Rate, Regular Rhythm, No Murmurs GI/Abdominal Exam: Soft, No Organomegaly, Distended, Tender. No: Guarding, Rigid, Rebound Extremities: Non-Tender, No Pedal Edema - Problem List Review Problem List Initiated/Reviewed/Updated: Yes - My Orders Last 24 Hours: My Active Orders 04/24/19 12:00 Convert IV to Saline Lock [OM.PC] Routine 04/24/19 21:45 Docusate Sodium [Colace] 100 mg PO BID 04/25/19 12:00 Bisacodyl [Dulcolax] 10 mg RECTAL ONETIME ONE 04/25/19 Lunch GI Soft Low Fiber [Soft Diet] [DIET] - Plan Plan:: ASSESSMENT AND PLAN DIVERTICULITIS/COLITIS-symptoms consistent with previous episodes of diverticulitis although more intense and prolonged. Elevation white blood cell count, CRP, with evidence of colon inflammation in the descending and sigmoid colon seen on CT scan. Improved from admission with less pain, no significant temperature elevation, normalization of white blood cell count. She has shown modest improvement since yesterday, we need to continue IV antibiotic therapy because of the significant area of colon involved with the infection as well as her ongoing pain. Oral intake remains fairly poor. -Soft low residue diet -Pain and nausea medication as needed -IV Unasyn and Azactam -Consider colonoscopyas an outpatient for further evaluation RECENT TIA-symptoms of left-sided weakness 5 days ago, evaluated with hospitalization in [facility]. No underlying etiology found and no further evaluation or management recommended MAINTENANCE ISSUES -DVT prophylaxis; scuds -GI prophylaxis; Protonix 40 mg IV daily -Hanson catheter; not indicated -Nutrition; full liquid diet -Nicotine dependence; not required CODE STATUS-FULL CODE ADMISSION STATUS-patient will be admitted to inpatient status, expect at least a 2 night hospital stay for evaluation and management of problems as outlined above. At the time of this admission I do not reasonably expected evaluation and management of this problem will require more than a 96 hour hospital stay. DISPOSITION-anticipate discharge to home after the hospital stay. PRIMARY CARE PROVIDER-she is from [facility] where she receives her primary care in [facility]
[2019-04-25] MEDS ORDERED: Bisacodyl 10 MG Supp RECTAL ONE (13:00)
[2019-04-25] MEDS: Lactobacillus Rhamnosus GG (Probiotic) Cap PO SCH ×2 (13:42→20:46)
[2019-04-25] MEDS: Pantoprazole 40 MG Tab.CR PO SCH (16:34)
[2019-04-26] MEDS: Aztreonam 1 GM in Sodium Chloride 0.9% 100 ML IV SCH ×3 (02:19→17:58)
[2019-04-26] MEDS: Acetaminophen/HYDROcodone 325-5 MG Tab PO PRN ×4 (04:20→20:40)
[2019-04-26] MEDS: Ampicillin/Sulbactam Na 1.5 GM in Sodium Chloride 0.9% 50 ML IV SCH ×4 (04:20→22:29)
[2019-04-26] MEDS: Docusate Sodium 100 MG Cap PO SCH ×2 (09:42→20:38)
[2019-04-26] MEDS: Lactobacillus Rhamnosus GG (Probiotic) Cap PO SCH ×2 (09:42→20:38)
--- NOTE | 2019-04-26 13:27 | PCM.PN ---
- General Info Date of Service: 04/26/19 Subjective Update: Ms. Luo continues to experience left lower quadrant abdominal pain, seems to be slowly improving on a daily basis. Appetite and oral intake remained poor. Vital signs have remained stable and she has been afebrile. Functional Status: Reports: Pain Controlled, Ambulating, Urinating. Denies: Tolerating Diet - Review of Systems General: Reports: Weakness. Denies: Fever, Chills Pulmonary: Reports: No Symptoms Cardiovascular: Reports: No Symptoms Gastrointestinal: Reports: Abdominal Pain, Decreased Appetite. Denies: Difficulty Swallowing, Hematochezia, Melena, Nausea, Vomiting - Patient Data Vitals - Most Recent: Last Vital Signs Temp 97.8 F 04/26/19 10:00 Pulse 98 04/26/19 10:00 Resp 16 04/26/19 10:00 BP 108/77 04/26/19 10:00 Pulse Ox 97 04/26/19 10:00 Weight - Most Recent: 206 lb 9.6 oz I&O - Last 24 Hours: Intake & Output 04/25/19 04/26/19 04/26/19 22:59 06:59 14:59 Intake Total 810 150 270 Balance 810 150 270 Med Orders - Current: Current Medications Acetaminophen (Tylenol) 650 mg PO Q4H PRN PRN Reason: Pain (Mild 1-3)/fever Hydrocodone Bitart/Acetaminophen ([place] 325-5 Mg) 1 tab PO Q4H PRN PRN Reason: Pain (moderate 4-6) Last Admin: 04/26/19 09:41 Dose: 1 tab Docusate Sodium (Colace) 100 mg PO BID [facility] Last Admin: 04/26/19 09:42 Dose: 100 mg Hydromorphone HCl (Dilaudid) 0.5 mg IVPUSH Q2H PRN PRN Reason: Pain (severe 7-10) Last Admin: 04/23/19 17:03 Dose: 0.5 mg Ampicillin Sodium/Sulbactam (Sodium 1.5 gm/ Sodium Chloride) 50 mls @ 100 mls/ hr IV Q6HR [facility] Last Admin: 04/26/19 10:26 Dose: 100 mls/hr Aztreonam 1 gm/ Sodium (Chloride) 100 mls @ 200 mls/hr IV Q8H [facility] Last Admin: 04/26/19 09:42 Dose: 200 mls/hr Lactobacillus Rhamnosus (Culturelle) 1 cap PO BID [facility] Last Admin: 04/26/19 09:42 Dose: 1 cap Ondansetron HCl (Zofran) 4 mg IV Q4H PRN PRN Reason: Nausea/Vomiting Pantoprazole Sodium (Protonix) 40 mg PO Q24H [facility] Last Admin: 04/25/19 16:34 Dose: 40 mg Sodium Chloride (Saline Flush) 10 ml FLUSH ASDIRECTED PRN PRN Reason: Keep Vein Open Discontinued Medications Bisacodyl (Dulcolax) 10 mg RECTAL ONETIME ONE Stop: 04/24/19 21:40 Last Admin: 04/24/19 22:04 Dose: 10 mg Bisacodyl (Dulcolax) 10 mg RECTAL ONETIME ONE Stop: 04/25/19 13:01 Last Admin: 04/25/19 13:43 Dose: 10 mg Hydromorphone HCl (Dilaudid) 1 mg IVPUSH ONETIME ONE Stop: 04/23/19 12:43 Last Admin: 04/23/19 13:15 Dose: 1 mg Lactated Ringer's (Ringers, Lactated) 1,000 mls @ 150 mls/hr IV ASDIRECTED [facility] Last Admin: 04/23/19 12:53 Dose: 150 mls/hr Sodium Chloride (Normal Saline) 100 mls @ 3 mls/sec IV ASDIRECTED [facility] Last Admin: 04/23/19 14:13 Dose: 3 mls/sec Lactated Ringer's (Ringers, Lactated) 1,000 mls @ 125 mls/hr IV ASDIRECTED [facility] Last Admin: 04/24/19 10:23 Dose: 125 mls/hr Potassium Chloride 20 meq/Lidocaine HCl 2 ml/ Sodium Chloride 112 mls @ 56 mls/ hr IV Q2H [facility] Stop: 04/24/19 13:59 Last Admin: 04/24/19 13:48 Dose: 56 mls/hr Iopamidol (Isovue-300 (61%)) 150 ml IV . DIRECTED [facility] Last Admin: 04/23/19 14:12 Dose: 138 ml Metoclopramide HCl (Reglan) 10 mg IVPUSH ONETIME ONE Stop: 04/23/19 12:43 Last Admin: 04/23/19 13:15 Dose: 10 mg Pantoprazole Sodium (Protonix Iv) 40 mg IVPUSH Q24H [facility] Last Admin: 04/24/19 17:27 Dose: 40 mg Potassium Chloride (Klor-Con M20) 40 meq PO ONETIME ONE Stop: 04/24/19 09:01 Last Admin: 04/24/19 09:22 Dose: 40 meq Potassium Chloride (Klor-Con M20) 40 meq PO ONETIME ONE Stop: 04/24/19 17:01 Last Admin: 04/24/19 16:04 Dose: 40 meq Sodium Chloride (Saline Flush) 10 ml FLUSH ASDIRECTED PRN PRN Reason: Keep Vein Open Last Admin: 04/23/19 14:13 Dose: 10 ml - Exam Quality Assessment: DVT Prophylaxis General: Alert, Oriented, Cooperative, Mild Distress Lungs: Clear to Auscultation, Normal Respiratory Effort Cardiovascular: Regular Rate, Regular Rhythm, No Murmurs GI/Abdominal Exam: Soft, No Organomegaly, Tender (Left lower quadrant). No: Distended, Guarding, Rigid, Rebound Extremities: Non-Tender, No Pedal Edema - Problem List Review Problem List Initiated/Reviewed/Updated: Yes - My Orders Last 24 Hours: My Active Orders 04/25/19 12:30 Lactobacillus Rhamnosus GG [Culturelle] 1 cap PO BID 04/25/19 16:30 Pantoprazole [ProTONIX] 40 mg PO Q24H - Plan Plan:: ASSESSMENT AND PLAN DIVERTICULITIS/COLITIS-symptoms consistent with previous episodes of diverticulitis although more intense and prolonged. Relatively large area of colonic inflammation identified on CT scan, likes likely explains prolonged duration of symptoms and persistent pain. Because of ongoing symptoms and large area of colonic involvement I strongly believe that we should continue IV antibiotic therapy at least over the next 24 hours until symptoms have improved. -Soft low residue diet -Pain and nausea medication as needed -IV Unasyn and Azactam -Consider colonoscopy as an outpatient for further evaluation RECENT TIA-symptoms of left-sided weakness 5 days ago, evaluated with hospitalization in [facility]. No underlying etiology found and no further evaluation or management recommended MAINTENANCE ISSUES -DVT prophylaxis; scuds -GI prophylaxis; Protonix 40 mg IV daily -Hanson catheter; not indicated -Nutrition; full liquid diet -Nicotine dependence; not required CODE STATUS-FULL CODE ADMISSION STATUS-patient will be admitted to inpatient status, expect at least a 2 night hospital stay for evaluation and management of problems as outlined above. At the time of this admission I do not reasonably expected evaluation and management of this problem will require more than a 96 hour hospital stay. DISPOSITION-anticipate discharge to home after the hospital stay. PRIMARY CARE PROVIDER-she is from [facility] where she receives her primary care in [facility]
[2019-04-26] MEDS: Pantoprazole 40 MG Tab.CR PO SCH (15:54)
[2019-04-27] MEDS: Aztreonam 1 GM in Sodium Chloride 0.9% 100 ML IV SCH ×3 (03:03→18:00)
[2019-04-27] MEDS: Acetaminophen/HYDROcodone 325-5 MG Tab PO PRN ×4 (03:09→21:31)
[2019-04-27] MEDS: Ampicillin/Sulbactam Na 1.5 GM in Sodium Chloride 0.9% 50 ML IV SCH ×4 (03:44→21:33)
[2019-04-27] MEDS: Docusate Sodium 100 MG Cap PO SCH ×2 (09:21→21:32)
[2019-04-27] MEDS: Lactobacillus Rhamnosus GG (Probiotic) Cap PO SCH ×2 (09:21→21:32)
--- NOTE | 2019-04-27 14:29 | PCM.PN ---
- General Info Date of Service: 04/27/19 Subjective Update: Ms. Luo has continued to note slow improvement in symptoms. Left lower quadrant abdominal pain still has not totally resolved and on exam there is still a palpable fullness in the area. Vital signs have been good and she has remained afebrile. Appetite finally seems to be improving, now to the point where she is able to eat one third to half of her meals. I would continue to favor 1 additional day of IV antibiotic therapy because of the extensive nature of this diverticulitis, as well as ongoing symptoms Functional Status: Reports: Tolerating Diet, Ambulating, Urinating - Review of Systems General: Reports: Weakness. Denies: Fever, Chills Pulmonary: Reports: No Symptoms Cardiovascular: Reports: No Symptoms Gastrointestinal: Reports: Abdominal Pain, Decreased Appetite. Denies: Diarrhea , Difficulty Swallowing, Nausea, Vomiting - Patient Data Vitals - Most Recent: Last Vital Signs Temp 96.9 F 04/27/19 11:00 Pulse 73 04/27/19 11:00 Resp 16 04/27/19 11:00 BP 102/68 04/27/19 11:00 Pulse Ox 96 04/27/19 11:00 Weight - Most Recent: 210 lb 4.8 oz I&O - Last 24 Hours: Intake & Output 04/26/19 04/27/19 04/27/19 22:59 06:59 14:59 Intake Total 800 450 486 Balance 800 450 486 Med Orders - Current: Current Medications Acetaminophen (Tylenol) 650 mg PO Q4H PRN PRN Reason: Pain (Mild 1-3)/fever Hydrocodone Bitart/Acetaminophen ([place] 325-5 Mg) 1 tab PO Q4H PRN PRN Reason: Pain (moderate 4-6) Last Admin: 04/27/19 10:17 Dose: 1 tab Docusate Sodium (Colace) 100 mg PO BID NATALIE Last Admin: 04/27/19 09:21 Dose: 100 mg Hydromorphone HCl (Dilaudid) 0.5 mg IVPUSH Q2H PRN PRN Reason: Pain (severe 7-10) Last Admin: 04/23/19 17:03 Dose: 0.5 mg Ampicillin Sodium/Sulbactam (Sodium 1.5 gm/ Sodium Chloride) 50 mls @ 100 mls/ hr IV Q6HR [facility] Last Admin: 04/27/19 10:08 Dose: 100 mls/hr Aztreonam 1 gm/ Sodium (Chloride) 100 mls @ 200 mls/hr IV Q8H [facility] Last Admin: 04/27/19 10:08 Dose: 200 mls/hr Lactobacillus Rhamnosus (Culturelle) 1 cap PO BID [facility] Last Admin: 04/27/19 09:21 Dose: 1 cap Ondansetron HCl (Zofran) 4 mg IV Q4H PRN PRN Reason: Nausea/Vomiting Pantoprazole Sodium (Protonix) 40 mg PO Q24H [facility] Last Admin: 04/26/19 15:54 Dose: 40 mg Sodium Chloride (Saline Flush) 10 ml FLUSH ASDIRECTED PRN PRN Reason: Keep Vein Open Discontinued Medications Bisacodyl (Dulcolax) 10 mg RECTAL ONETIME ONE Stop: 04/24/19 21:40 Last Admin: 04/24/19 22:04 Dose: 10 mg Bisacodyl (Dulcolax) 10 mg RECTAL ONETIME ONE Stop: 04/25/19 13:01 Last Admin: 04/25/19 13:43 Dose: 10 mg Hydromorphone HCl (Dilaudid) 1 mg IVPUSH ONETIME ONE Stop: 04/23/19 12:43 Last Admin: 04/23/19 13:15 Dose: 1 mg Lactated Ringer's (Ringers, Lactated) 1,000 mls @ 150 mls/hr IV ASDIRECTED [facility] Last Admin: 04/23/19 12:53 Dose: 150 mls/hr Sodium Chloride (Normal Saline) 100 mls @ 3 mls/sec IV ASDIRECTED [facility] Last Admin: 04/23/19 14:13 Dose: 3 mls/sec Lactated Ringer's (Ringers, Lactated) 1,000 mls @ 125 mls/hr IV ASDIRECTED [facility] Last Admin: 04/24/19 10:23 Dose: 125 mls/hr Potassium Chloride 20 meq/Lidocaine HCl 2 ml/ Sodium Chloride 112 mls @ 56 mls/ hr IV Q2H [facility] Stop: 04/24/19 13:59 Last Admin: 04/24/19 13:48 Dose: 56 mls/hr Iopamidol (Isovue-300 (61%)) 150 ml IV . DIRECTED [facility] Last Admin: 04/23/19 14:12 Dose: 138 ml Metoclopramide HCl (Reglan) 10 mg IVPUSH ONETIME ONE Stop: 04/23/19 12:43 Last Admin: 04/23/19 13:15 Dose: 10 mg Pantoprazole Sodium (Protonix Iv) 40 mg IVPUSH Q24H [facility] Last Admin: 04/24/19 17:27 Dose: 40 mg Potassium Chloride (Klor-Con M20) 40 meq PO ONETIME ONE Stop: 04/24/19 09:01 Last Admin: 04/24/19 09:22 Dose: 40 meq Potassium Chloride (Klor-Con M20) 40 meq PO ONETIME ONE Stop: 04/24/19 17:01 Last Admin: 04/24/19 16:04 Dose: 40 meq Sodium Chloride (Saline Flush) 10 ml FLUSH ASDIRECTED PRN PRN Reason: Keep Vein Open Last Admin: 04/23/19 14:13 Dose: 10 ml - Exam Quality Assessment: DVT Prophylaxis General: Alert, Oriented, Cooperative, Mild Distress Lungs: Clear to Auscultation, Normal Respiratory Effort Cardiovascular: Regular Rate, Regular Rhythm, No Murmurs GI/Abdominal Exam: Soft, No Organomegaly, No Distention, Tender. No: Guarding, Rigid, Rebound Extremities: Non-Tender, No Pedal Edema - Problem List Review Problem List Initiated/Reviewed/Updated: Yes - Plan Plan:: ASSESSMENT AND PLAN DIVERTICULITIS/COLITIS-symptoms consistent with previous episodes of diverticulitis although more intense and prolonged. Relatively large area of colonic inflammation identified on CT scan, likely explains prolonged duration of symptoms and persistent pain. Because of ongoing symptoms and large area of colonic involvement I strongly believe that we should continue IV antibiotic therapy at least over the next 24 hours until symptoms have resolved. -Soft low residue diet -Pain and nausea medication as needed -IV Unasyn and Azactam -Outpatient surgical consult and colonoscopy with Dr. Pierre RECENT TIA-symptoms of left-sided weakness, evaluated with hospitalization in [facility]. No underlying etiology found and no further evaluation or management recommended MAINTENANCE ISSUES -DVT prophylaxis; scuds -GI prophylaxis; Protonix 40 mg IV daily -Hanson catheter; not indicated -Nutrition; full liquid diet -Nicotine dependence; not required CODE STATUS-FULL CODE ADMISSION STATUS-patient will be admitted to inpatient status, expect at least a 2 night hospital stay for evaluation and management of problems as outlined above. At the time of this admission I do not reasonably expected evaluation and management of this problem will require more than a 96 hour hospital stay. DISPOSITION-anticipate discharge to home after the hospital stay. PRIMARY CARE PROVIDER-she is from [facility] where she receives her primary care in [facility]
[2019-04-27] MEDS: Pantoprazole 40 MG Tab.CR PO SCH (16:31)
[2019-04-28] MEDS: Aztreonam 1 GM in Sodium Chloride 0.9% 100 ML IV SCH ×2 (02:59→10:34)
[2019-04-28] MEDS: Ampicillin/Sulbactam Na 1.5 GM in Sodium Chloride 0.9% 50 ML IV SCH ×2 (03:43→10:34)
[2019-04-28] MEDS: Acetaminophen/HYDROcodone 325-5 MG Tab PO PRN ×2 (05:09→13:02)
[2019-04-28] MEDS: Docusate Sodium 100 MG Cap PO SCH (09:32)
[2019-04-28] MEDS: Lactobacillus Rhamnosus GG (Probiotic) Cap PO SCH (09:32)
--- NOTE | 2019-04-28 12:22 | PCM.DCSUM1 ---
Discharge Summary - Hospital Course Brief History: Ms. Luo is a 48-year-old woman who was admitted through the emergency department with left lower quadrant abdominal pain, fever, and decreased appetite secondary to underlying diverticulitis. - Discharge Data Discharge Date: 04/28/19 Discharge Disposition: Home, Self-Care 01 Condition: Fair - Discharge Diagnosis/Problem(s) (1) Diverticulitis large intestine SNOMED Code(s): 0316024 ICD Code: K57.32 - DVTRCLI OF LG INT W/O PERFORATION OR ABSCESS W/O BLEEDING Status: Acute Current Visit: Yes - Patient Summary/Data Hospital Course: Ms. Vazquez is a 48-year-old woman who was admitted through the emergency department with left lower quadrant abdominal pain, diarrhea, nausea, and vomiting. She has had a history of recurrent episodes of diverticulitis. Recent symptoms have been consistent with that but more intense than she had noted in the past. Pain is described as an intense ache with episodes of sharper pain occurring in the left lower quadrant, there is been no radiation, no precipitating or relieving factors. Pain is been present now over the past 4 days. She has had nausea vomiting and episodes of diarrhea. She has not taken her temperature but has felt feverish and also had chills with decreased appetite. On evaluation in the emergency department white blood cell count is modestly elevated, CRP is significantly elevated. CT scan of the abdomen shows an area of the descending and sigmoid colon with significant inflammation. This area is larger than would typically be expected with diverticulitis and may represent underlying colitis. On admission she was given IV fluids for hydration as well as medication for pain and nausea. IV antibiotic therapy was initiated with Unasyn and Azactam. Symptoms gradually improved over the next 5 days of hospitalization. By the time of discharge she only had very mild residual pain in the left lower quadrant and no palpable fullness. Slow improvement in symptoms was felt to be secondary to the relatively large area of colon involved. By the time of discharge was tolerating a soft low residue diet and was only taking pain medications a few times per day. Activity will be as tolerated and she will be on a soft low residue diet. Follow-up appointment will be scheduled with Dr. Pierre in 7-10 days, for reassessment of pain and inflammation. Decision will be made at that time whether to continue ongoing oral antibiotic therapy. She will be discharged to home on oral ciprofloxacin and metronidazole. At the time of follow-up appointment Dr. Pierre will also discuss elective left colon resection for ongoing management of recurrent diverticulitis as well as plan to schedule a colonoscopy. She will return to the emergency department if she notes recurrent symptoms or lack of ongoing improvement. - Patient Instructions Diet: GI Soft/Low Residue/Low Fiber Activity: As Tolerated Other/Special Instructions: Schedule follow-up appointment with Dr. Pierre in 7-10 days - Discharge Plan *PRESCRIPTION DRUG MONITORING PROGRAM REVIEWED*: No *COPY OF PRESCRIPTION DRUG MONITORING REPORT IN PATIENT EDIS: No Prescriptions/Med Rec: Ciprofloxacin HCl [Cipro] 500 mg PO BID #14 tablet Hydrocodone/Acetaminophen [Hydrocodon-Acetaminophen 5-325] 1 each PO Q4H #20 tablet Lactobacillus Rhamnosus GG [Culturelle] 1 cap PO BID #60 cap metroNIDAZOLE [Flagyl] 500 mg PO Q8H #21 tab Home Medications: Home Meds Ciprofloxacin HCl [Cipro] 500 mg PO BID #14 tablet 04/28/19 [Rx] Hydrocodone/Acetaminophen [Hydrocodon-Acetaminophen 5-325] 1 each PO Q4H #20 tablet 04/28/19 [Rx] Lactobacillus Rhamnosus GG [Culturelle] 1 cap PO BID #60 cap 04/28/19 [Rx] metroNIDAZOLE [Flagyl] 500 mg PO Q8H #21 tab 04/28/19 [Rx] Patient Handouts: Diverticulitis, [id number] Referrals: Bernice Zhong DO [Primary Care Provider] - - Discharge Summary/Plan Comment DC Time >30 min.: No - Patient Data Vitals - Most Recent: Last Vital Signs Temp 96.7 F 04/28/19 06:59 Pulse 74 04/28/19 06:59 Resp 18 04/28/19 06:59 BP 117/69 04/28/19 06:59 Pulse Ox 95 04/28/19 06:59 Weight - Most Recent: 208 lb I&O - Last 24 hours: Intake & Output 04/27/19 04/28/19 04/28/19 22:59 06:59 14:59 Intake Total 980 150 150 Balance 980 150 150 Med Orders - Current: Current Medications Acetaminophen (Tylenol) 650 mg PO Q4H PRN PRN Reason: Pain (Mild 1-3)/fever Hydrocodone Bitart/Acetaminophen ([place] 325-5 Mg) 1 tab PO Q4H PRN PRN Reason: Pain (moderate 4-6) Last Admin: 04/28/19 05:09 Dose: 1 tab Docusate Sodium (Colace) 100 mg PO BID [facility] Last Admin: 04/28/19 09:32 Dose: 100 mg Hydromorphone HCl (Dilaudid) 0.5 mg IVPUSH Q2H PRN PRN Reason: Pain (severe 7-10) Last Admin: 04/23/19 17:03 Dose: 0.5 mg Ampicillin Sodium/Sulbactam (Sodium 1.5 gm/ Sodium Chloride) 50 mls @ 100 mls/ hr IV Q6HR [facility] Last Admin: 04/28/19 10:34 Dose: 100 mls/hr Aztreonam 1 gm/ Sodium (Chloride) 100 mls @ 200 mls/hr IV Q8H [facility] Last Admin: 04/28/19 10:34 Dose: 200 mls/hr Lactobacillus Rhamnosus (Culturelle) 1 cap PO BID [facility] Last Admin: 04/28/19 09:32 Dose: 1 cap Ondansetron HCl (Zofran) 4 mg IV Q4H PRN PRN Reason: Nausea/Vomiting Pantoprazole Sodium (Protonix) 40 mg PO Q24H [facility] Last Admin: 04/27/19 16:31 Dose: 40 mg Sodium Chloride (Saline Flush) 10 ml FLUSH ASDIRECTED PRN PRN Reason: Keep Vein Open Discontinued Medications Bisacodyl (Dulcolax) 10 mg RECTAL ONETIME ONE Stop: 04/24/19 21:40 Last Admin: 04/24/19 22:04 Dose: 10 mg Bisacodyl (Dulcolax) 10 mg RECTAL ONETIME ONE Stop: 04/25/19 13:01 Last Admin: 04/25/19 13:43 Dose: 10 mg Hydromorphone HCl (Dilaudid) 1 mg IVPUSH ONETIME ONE Stop: 04/23/19 12:43 Last Admin: 04/23/19 13:15 Dose: 1 mg Lactated Ringer's (Ringers, Lactated) 1,000 mls @ 150 mls/hr IV ASDIRECTED [facility] Last Admin: 04/23/19 12:53 Dose: 150 mls/hr Sodium Chloride (Normal Saline) 100 mls @ 3 mls/sec IV ASDIRECTED [facility]ALIE Last Admin: 04/23/19 14:13 Dose: 3 mls/sec Lactated Ringer's (Ringers, Lactated) 1,000 mls @ 125 mls/hr IV ASDIRECTED [facility] Last Admin: 04/24/19 10:23 Dose: 125 mls/hr Potassium Chloride 20 meq/Lidocaine HCl 2 ml/ Sodium Chloride 112 mls @ 56 mls/ hr IV Q2H [facility] Stop: 04/24/19 13:59 Last Admin: 04/24/19 13:48 Dose: 56 mls/hr Iopamidol (Isovue-300 (61%)) 150 ml IV . DIRECTED [facility] Last Admin: 04/23/19 14:12 Dose: 138 ml Metoclopramide HCl (Reglan) 10 mg IVPUSH ONETIME ONE Stop: 04/23/19 12:43 Last Admin: 04/23/19 13:15 Dose: 10 mg Pantoprazole Sodium (Protonix Iv) 40 mg IVPUSH Q24H [facility] Last Admin: 04/24/19 17:27 Dose: 40 mg Potassium Chloride (Klor-Con M20) 40 meq PO ONETIME ONE Stop: 04/24/19 09:01 Last Admin: 04/24/19 09:22 Dose: 40 meq Potassium Chloride (Klor-Con M20) 40 meq PO ONETIME ONE Stop: 04/24/19 17:01 Last Admin: 04/24/19 16:04 Dose: 40 meq Sodium Chloride (Saline Flush) 10 ml FLUSH ASDIRECTED PRN PRN Reason: Keep Vein Open Last Admin: 04/23/19 14:13 Dose: 10 ml - Exam General: Reports: Alert, Oriented, Cooperative, No Acute Distress Lungs: Reports: Clear to Auscultation, Normal Respiratory Effort Cardiovascular: Reports: Regular Rate, Regular Rhythm, No Murmurs GI/Abdominal Exam: Soft, No Organomegaly, Tender (Mild tenderness to palpation left lower quadrant). No: Distended, Guarding, Rigid, Rebound
== END 2019-04-28 13:04 | disposition home or self-care (01) | DRG 244 ==
LOC: JP.ED 11:45 → JP.MS 15:37
PROVIDERS: ADMIT Hospitalist; ATTEND Hospitalist
DX: K57.32 Diverticulitis of large intestine without perforation or abscess without bleeding (principal); E87.6 Hypokalemia; Z98.84 Bariatric surgery status; H54.7 Unspecified visual loss; Z86.73 Personal history of transient ischemic attack (TIA), and cerebral infarction without residual deficits; Z90.49 Acquired absence of other specified parts of digestive tract; Z90.710 Acquired absence of both cervix and uterus; Z88.1 Allergy status to other antibiotic agents; E66.9 Obesity, unspecified; Z68.33 Body mass index [BMI] 33.0-33.9, adult
CPT/HCPCS: 36415; 74177; 80048; 81001; 85025; 85027; 86140; 99285-25; A9270-GY; C9113; J0287; J1170; J2001; J2765; J3480; J3490; J7030; J7050; J7120

== ENCOUNTER 2019-05-31 20:29 | Inpatient (IN) | payer BC ==
[2019-05-31] MEDS ORDERED: Sodium Chloride 0.9% 10 ML Syringe FLUSH PRN (20:46)
[2019-05-31] MEDS ORDERED: HYDROmorphone 0.5 MG/0.5 ML Syringe IVPUSH ONE ×2 (20:47→22:18)
--- NOTE | 2019-05-31 20:54 | EDM.PDOC ---
ED HPI GENERAL MEDICAL PROBLEM - General Chief Complaint: Abdominal Pain Stated Complaint: ABD PAIN Time Seen by Provider: 05/31/19 20:30 Source of Information: Reports: Patient History Limitations: Reports: No Limitations - History of Present Illness INITIAL COMMENTS - FREE TEXT/NARRATIVE: Started yesterday Pain, mid/lower abdomen; she was hospitalized within the last month with diverticulitis/colitis; went home on antibiotics; discharged; then yesterday started with abdominal pain; Denies pain with urination, mild radiation of discomfort to her left lower quadrant; no back pain. Fever, nausea/vomiting. Took one of her left over pain pills earlier today. Onset: Gradual Duration: Day(s): (1) Location: Reports: Abdomen Quality: Reports: Pressure Severity: Moderate Improves with: Reports: None Worsens with: Reports: None Associated Symptoms: Reports: Nausea/Vomiting Middle Abdomen Pain Score (Numeric/FACES): 5 - Related Data Allergies Allergy/AdvReac Type Severity Reaction Status Date / Time azithromycin [From Zithromax] Allergy Rash Verified 05/31/19 20:55 Home Meds: Home Meds Hydrocodone/Acetaminophen [Hydrocodon-Acetaminophen 5-325] 1 each PO Q4H #20 tablet 04/28/19 [Rx] Lactobacillus Rhamnosus GG [Culturelle] 1 cap PO BID #60 cap 04/28/19 [Rx] Past Medical History HEENT History: Reports: Impaired Vision Gastrointestinal History: Reports: Diverticulosis 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: Neurological History: Reports: TIA Other Neuro History: recent ministroke Endocrine/Metabolic History: Reports: Obesity/BMI 30+ Hematologic History: Reports: Blood Transfusion(s) - Infectious Disease History Infectious Disease History: Reports: Chicken Pox - Past Surgical History GI Surgical History: Reports: Appendectomy, Cholecystectomy, Colonoscopy, Other (See Below) Other GI Surgeries/Procedures: gastroplasty banding 2001 aprox Female Surgical History: Reports: Hysterectomy Neurological Surgical History: Reports: None Social & Family History - Family History Family Medical History: Noncontributory - Caffeine Use Caffeine Use: Reports: Coffee ED ROS GENERAL - Review of Systems Review Of Systems: See Below Constitutional: Reports: Fever, Diaphoresis HEENT: Reports: No Symptoms Respiratory: Reports: No Symptoms Cardiovascular: Reports: No Symptoms GI/Abdominal: Reports: Abdominal Pain, Nausea, Vomiting : Reports: No Symptoms Musculoskeletal: Reports: No Symptoms Skin: Reports: No Symptoms Neurological: Reports: No Symptoms ED EXAM, GENERAL - Physical Exam Exam: See Below Exam Limited By: No Limitations General Appearance: Alert, WD/WN, Moderate Distress Head: Atraumatic, Normocephalic Neck: Normal Inspection, Supple, Non-Tender, Full Range of Motion Respiratory/Chest: No Respiratory Distress, Lungs Clear, Normal Breath Sounds, No Accessory Muscle Use Cardiovascular: Regular Rate, Rhythm GI/Abdominal: Normal Bowel Sounds, Guarding, Tender, Other (No CVA tenderness) Back Exam: Full Range of Motion Extremities: Normal Range of Motion Neurological: Alert, Oriented, CN II-XII Intact Skin Exam: Warm, Dry Course - Vital Signs Last Recorded V/S: Last Vital Signs Temp 99.1 F 06/01/19 07:41 Pulse 74 06/01/19 07:41 Resp 16 06/01/19 07:41 BP 113/72 06/01/19 07:41 Pulse Ox 96 06/01/19 07:41 - Orders/Labs/Meds Orders: Active Orders 24 hr Category Date Time Status Peripheral IV Care [RC] . DIRECTED Care 05/31/19 20:46 Active CULTURE BLOOD [BC] Urgent Lab 05/31/19 20:50 Received CULTURE BLOOD [BC] Urgent Lab 05/31/19 20:50 Received CULTURE URINE [RM] Stat Lab 05/31/19 20:55 Received Sodium Chloride 0.9% [Normal Saline] 1,000 ml Med 05/31/19 22:30 Active IV ASDIRECTED Sodium Chloride 0.9% [Saline Flush] Med 05/31/19 20:46 Active 10 ml FLUSH ASDIRECTED PRN Blood Culture x2 Reflex Set [OM.PC] Urgent Oth 05/31/19 20:46 Ordered Peripheral IV Insertion Adult [OM.PC] Stat Oth 05/31/19 20:46 Ordered Medication Orders Hydromorphone HCl (Dilaudid Director On Air 15 Mg In Ns 30 Ml) 15 mg IV ASDIRECTED NATALIE; Protocol Last Admin: 06/01/19 06:31 Dose: 15 mg Sodium Chloride (Normal Saline) 1,000 mls @ 75 mls/hr IV ASDIRECTED NATALIE Last Admin: 06/01/19 10:59 Dose: 75 mls/hr Infusion: 06/01/19 10:59 Dose: 75 mls/hr Admin: 05/31/19 22:20 Dose: 75 mls/hr Lactated Ringer's (Ringers, Lactated) 1,000 mls @ 150 mls/hr IV ASDIRECTED NATALIE Last Admin: 06/01/19 04:17 Dose: 150 mls/hr Piperacillin/Tazobactam/ (Dextrose 3.375 gm/ Premix) 50 mls @ 100 mls/hr IV Q6H NATALIE Lactobacillus Rhamnosus (Culturelle) 1 cap PO BID NATALIE Last Admin: 06/01/19 09:06 Dose: 1 cap Ondansetron HCl (Zofran) 4 mg IV Q6H PRN PRN Reason: Nausea/Vomiting Last Admin: 06/01/19 01:33 Dose: 4 mg Sodium Chloride (Saline Flush) 10 ml FLUSH ASDIRECTED PRN PRN Reason: Keep Vein Open Last Admin: 05/31/19 20:55 Dose: 10 ml Labs: Laboratory Tests 05/31/19 05/31/19 05/31/19 Range/Units 20:50 20:50 20:50 WBC 14.7 H (4.5-11.0) K/uL RBC 4.36 (3.30-5.50) M/uL Hgb 13.2 D (12.0-15.0) g/dL Hct 39.7 (36.0-48.0) % MCV 91 (80-98) fL MCH 30 (27-31) pg MCHC 33 (32-36) % Plt Count 328 (150-400) K/uL Neut % (Auto) 79 H (36-66) % Lymph % (Auto) 9 L (24-44) % [place] % (Auto) 12 H (2-6) % Eos % (Auto) 0 L (2-4) % Baso % (Auto) 0 (0-1) % Sodium 136 L (140-148) mmol/L Potassium 3.3 L (3.6-5.2) mmol/L Chloride 100 (100-108) mmol/L Carbon Dioxide 26 (21-32) mmol/L Anion Gap 13.3 (5.0-14.0) mmol/L BUN 7 D (7-18) mg/dL Creatinine 0.7 (0.6-1.0) mg/dL Est Cr Clr Drug Dosing 87.48 mL/min Estimated GFR (MDRD) > 60 (>60) Glucose 117 H (74-106) mg/dL Lactic Acid 1.6 (0.4-2.0) mmol/L Calcium 9.0 (8.5-10.1) mg/dL Total Bilirubin 1.2 H (0.2-1.0) mg/dL AST 37 (15-37) U/L ALT 44 (12-78) U/L Alkaline Phosphatase 92 (46-116) U/L C-Reactive Protein (0.0-0.3) mg/dL Total Protein 8.2 (6.4-8.2) g/dL Albumin 3.4 (3.4-5.0) g/dL Globulin 4.8 H (2.3-3.5) g/dL Albumin/Globulin Ratio 0.7 L (1.2-2.2) Urine Color Urine Appearance Urine pH (4.5-8.0) Ur Specific [place] (1.008-1.030) Urine Protein (NEGATIVE) mg/dL Urine Glucose (UA) (NEGATIVE) mg/dL Urine Ketones (NEGATIVE) mg/dL Urine Occult Blood (NEGATIVE) Urine Nitrite (NEGATIVE) Urine Bilirubin (NEGATIVE) Urine Urobilinogen (NORMAL) mg/dL Ur Leukocyte Esterase (NEGATIVE) Urine RBC (0-5) Urine WBC (0-5) Ur Epithelial Cells Amorphous Sediment Urine Bacteria Urine Mucus 05/31/19 05/31/19 Range/Units 20:50 20:55 WBC (4.5-11.0) K/uL RBC (3.30-5.50) M/uL Hgb (12.0-15.0) g/dL Hct (36.0-48.0) % MCV (80-98) fL MCH (27-31) pg MCHC (32-36) % Plt Count (150-400) K/uL Neut % (Auto) (36-66) % Lymph % (Auto) (24-44) % [place] % (Auto) (2-6) % Eos % (Auto) (2-4) % Baso % (Auto) (0-1) % Sodium (140-148) mmol/L Potassium (3.6-5.2) mmol/L Chloride (100-108) mmol/L Carbon Dioxide (21-32) mmol/L Anion Gap (5.0-14.0) mmol/L BUN (7-18) mg/dL Creatinine (0.6-1.0) mg/dL Est Cr Clr Drug Dosing mL/min Estimated GFR (MDRD) (>60) Glucose (74-106) mg/dL Lactic Acid (0.4-2.0) mmol/L Calcium (8.5-10.1) mg/dL Total Bilirubin (0.2-1.0) mg/dL AST (15-37) U/L ALT (12-78) U/L Alkaline Phosphatase (46-116) U/L C-Reactive Protein 16.31 H (0.0-0.3) mg/dL Total Protein (6.4-8.2) g/dL Albumin (3.4-5.0) g/dL Globulin (2.3-3.5) g/dL Albumin/Globulin Ratio (1.2-2.2) Urine Color Yellow Urine Appearance Clear Urine pH 7.0 (4.5-8.0) Ur Specific [place] 1.010 (1.008-1.030) Urine Protein Negative (NEGATIVE) mg/dL Urine Glucose (UA) Normal (NEGATIVE) mg/dL Urine Ketones Negative (NEGATIVE) mg/dL Urine Occult Blood Moderate (NEGATIVE) Urine Nitrite Negative (NEGATIVE) Urine Bilirubin Negative (NEGATIVE) Urine Urobilinogen Normal (NORMAL) mg/dL Ur Leukocyte Esterase Negative (NEGATIVE) Urine RBC 5-10 H (0-5) Urine WBC Not seen (0-5) Ur Epithelial Cells Few Amorphous Sediment Not seen Urine Bacteria Few Urine Mucus Not seen Meds: Medications Generic Name Dose Route Start Last Admin Trade Name Sinq PRN Reason Stop Dose Admin Hydromorphone HCl 15 mg 06/01/19 06:30 06/01/19 06:31 Dilaudid Director On Air 15 Mg In Ns 30 Ml IV 15 mg ASDIRECTED NATALIE Administration Protocol Sodium Chloride 1,000 mls @ 75 mls/hr 05/31/19 22:30 06/01/19 10:59 Normal Saline IV 75 mls/hr ASDIRECTED NATALIE Administration Lactated Ringer's 1,000 mls @ 150 mls/hr 06/01/19 00:45 06/01/19 04:17 Ringers, Lactated IV 150 mls/hr ASDIRECTED NATALIE Administration Piperacillin/Tazobactam/ 50 mls @ 100 mls/hr 06/01/19 12:00 Dextrose 3.375 gm/ Premix IV Q6H NATALIE Lactobacillus Rhamnosus 1 cap 06/01/19 09:00 06/01/19 09:06 Culturelle PO 1 cap BID NATALIE Administration Ondansetron HCl 4 mg 06/01/19 00:26 06/01/19 01:33 Zofran IV 4 mg Q6H PRN Administration Nausea/Vomiting Sodium Chloride 10 ml 05/31/19 20:46 05/31/19 20:55 Saline Flush FLUSH 10 ml ASDIRECTED PRN Administration Keep Vein Open Discontinued Medications Generic Name Dose Route Start Last Admin Trade Name Freq PRN Reason Stop Dose Admin Hydromorphone HCl 0.5 mg 05/31/19 20:47 05/31/19 20:55 Dilaudid IVPUSH 05/31/19 20:48 0.5 mg ONETIME ONE Administration Hydromorphone HCl 0.5 mg 05/31/19 22:18 05/31/19 22:22 Dilaudid IVPUSH 05/31/19 22:19 0.5 mg ONETIME ONE Administration Hydromorphone HCl 0.5 mg 06/01/19 00:14 06/01/19 00:17 Dilaudid IVPUSH 06/01/19 00:15 0.5 mg ONETIME ONE Administration Hydromorphone HCl 0.5 mg 06/01/19 00:30 06/01/19 06:10 Dilaudid IVPUSH 0.5 mg Q2H PRN Administration Pain Sodium Chloride 1,000 mls @ 1,000 mls/hr 05/31/19 21:00 05/31/19 20:55 Normal Saline IV 1,000 mls/hr ASDIRECTED NATALIE Administration Sodium Chloride 85 mls @ 3.5 mls/sec 05/31/19 22:00 05/31/19 22:02 Normal Saline IV 3.5 mls/sec ASDIRECTED NATALIE Administration Piperacillin Sod/Tazobactam 100 mls @ 100 mls/hr 06/01/19 00:01 06/01/19 00: 20 Sod 4.5 gm/ Sodium Chloride IV 06/01/19 01:00 100 mls/hr ONETIME ONE Administration Piperacillin Sod/Tazobactam 50 mls @ 100 mls/hr 06/01/19 00:30 06/01/19 05:50 Sod 3.375 gm/ Sodium Chloride IV 06/01/19 08:00 100 mls/hr Q6H NATALIE Administration Sodium Chloride 1,000 mls @ 150 mls/hr 06/01/19 00:30 Normal Saline IV ASDIRECTED NATALIE Iopamidol 137 ml 05/31/19 21:46 05/31/19 22:02 Isovue-300 (61%) IV 05/31/19 21:47 137 ml . DIRECTED ONE Administration - Re-Assessments/Exams Free Text/Narrative Re-Assessment/Exam: 05/31/19 23:[address] results; Free Text/Narrative Re-Assessment/Exam: 06/01/19 11:11 at 0000, 06/01- patient care was handed over to Tin Grossman MD; as my shift ended. Departure - Departure Time of Disposition: 01:00 Disposition: Admitted As Inpatient 65 Condition: Fair Clinical Impression: Diverticulitis, Colitis - Discharge Information *PRESCRIPTION DRUG MONITORING PROGRAM REVIEWED*: Not Applicable *COPY OF PRESCRIPTION DRUG MONITORING REPORT IN PATIENT EDIS: Not Applicable - Problem List & Annotations (1) Diverticulitis large intestine SNOMED Code(s): 8901278 Code(s): K57.32 - DVTRCLI OF LG INT W/O PERFORATION OR ABSCESS W/O BLEEDING Status: Acute Priority: High Current Visit: Yes Qualifiers: Diverticulitis bleeding: unspecified bleeding status Diverticulitis complication: unspecified complication status Qualified Code(s): K57.32 - Diverticulitis of large intestine without perforation or abscess without bleeding - My Orders Last 24 Hours: My Active Orders 05/31/19 20:46 Peripheral IV Care [RC] . DIRECTED Sodium Chloride 0.9% [Saline Flush] 10 ml FLUSH ASDIRECTED PRN Blood Culture x2 Reflex Set [OM.PC] Urgent Peripheral IV Insertion Adult [OM.PC] Stat 05/31/19 20:50 CULTURE BLOOD [BC] Urgent CULTURE BLOOD [BC] Urgent 05/31/19 20:55 CULTURE URINE [RM] Stat 05/31/19 22:30 Sodium Chloride 0.9% [Normal Saline] 1,000 ml IV ASDIRECTED - Assessment/Plan Last 24 Hours: My Active Orders 05/31/19 20:46 Peripheral IV Care [RC] . DIRECTED Sodium Chloride 0.9% [Saline Flush] 10 ml FLUSH ASDIRECTED PRN Blood Culture x2 Reflex Set [OM.PC] Urgent Peripheral IV Insertion Adult [OM.PC] Stat 05/31/19 20:50 CULTURE BLOOD [BC] Urgent CULTURE BLOOD [BC] Urgent 05/31/19 20:55 CULTURE URINE [RM] Stat 05/31/19 22:30 Sodium Chloride 0.9% [Normal Saline] 1,000 ml IV ASDIRECTED
[2019-05-31] MEDS ORDERED: Sodium Chloride 0.9% 1,000 ML IV SCH (21:00)
[2019-05-31] MEDS ORDERED: Iopamidol 612 MG/ML 150 ML Bottle IV ONE (21:46)
[2019-05-31] MEDS: Sodium Chloride 0.9% 1,000 ML IV SCH (22:20)
--- NOTE | 2019-05-31 23:49 | CRLCT ---
INDICATION: Mid abdominal pain TECHNIQUE: CT Abdomen and pelvis with i.v. contrast. Coronal and sagittal reformats were obtained. CONTRAST: 136 mL Isovue-300 COMPARISON: 04/23/2019 FINDINGS: Lower chest: Unremarkable. Liver: Unremarkable. Spleen: Unremarkable. Pancreas: Unremarkable. Gallbladder: Previous cholecystectomy noted without significant intra- or extrahepatic biliary ductal dilatation seen. Kidney: Unremarkable. No kidney or ureteral stones or obstruction seen. Adrenal: Unremarkable. Bowel: Severe wall thickening and diverticulosis present in the sigmoid colon, more severe than on the prior examination. Severe surrounding inflammatory changes present. Previous gastric surgery is noted with a staple line along the lesser curvature. Mild fluid distention of the ascending, descending and transverse colon seen which may be due to functional obstruction of the colon. The appendix is not identified. Vascular: Unremarkable. Lymph: Unremarkable. Peritoneum: Unremarkable. No pneumoperitoneum is seen. No significant ascites is noted. Pelvis: A small amount of fluid is present along the left pelvic sidewall with thickening of the retroperitoneal fascia. Soft tissue: Multiple rounded foci of fat necrosis are present in the subcutaneous fat of the anterior pelvis. Bone: Unremarkable for age. IMPRESSIONS: 1. Severe wall thickening and diverticulosis present in the sigmoid colon, more severe than on the prior examination. Severe surrounding inflammatory changes present. Findings are likely due to colitis or diverticulitis. 2. A small amount of fluid is present along the left pelvic sidewall with thickening of the retroperitoneal fascia. This may be due to reactive fluid or phlegmonous changes. Close clinical follow-up is recommended to exclude subsequent development of abscess. Dictated by Adarsh Garcia MD @ 05/31/2019 11:48:14 PM Please note that all CT scans at this facility use dose modulation, iterative reconstruction, and/or weight-based dosing when appropriate to reduce radiation dose to as low as reasonably achievable. Dictated by: Adarsh Garcia MD @ 05/31/2019 23:48:32 (Electronically Signed)
[2019-06-01] MEDS ORDERED: Piperacillin/Tazobactam 4.5 GM in Sodium Chloride 0.9% 100 ML IV ONE (00:01)
[2019-06-01] MEDS ORDERED: HYDROmorphone 0.5 MG/0.5 ML Syringe IVPUSH ONE (00:14)
[2019-06-01] MEDS ORDERED: Ondansetron 4 MG/2 ML SDV IV PRN (00:26)
[2019-06-01] MEDS ORDERED: Sodium Chloride 0.9% 1,000 ML IV SCH (00:30)
--- NOTE | 2019-06-01 00:36 | PCM.HP ---
H&P History of Present Illness - General Date of Service: 06/01/19 Admit Problem/Dx: Admission Diagnosis/Problem Admission Diagnosis/Problem Diverticulitis Source of Information: Patient, Family, Old Records, RN Notes Reviewed History Limitations: Reports: No Limitations - History of Present Illness Initial Comments - Free Text/Narative: 48-year-old female was admitted to the emergency 3 weeks ago for acute diverticulitis spent several days in the hospital and discharged on antibiotics does have a significant 15 year history of diverticulitis has discussed with surgery the option of hemicolectomy for her recurrent diverticulitis is scheduled for colonoscopy in July and then possible surgical intervention at that time. 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: Neurological History: Reports: TIA Other Neuro History: recent ministroke Endocrine/Metabolic History: Reports: Obesity/BMI 30+ Hematologic History: Reports: Blood Transfusion(s) - Infectious Disease History Infectious Disease History: Reports: Chicken Pox - Past Surgical History GI Surgical History: Reports: Appendectomy, Cholecystectomy, Colonoscopy, Other (See Below) Other GI Surgeries/Procedures: gastroplasty banding 2000 aprox Female Surgical History: Reports: Hysterectomy Neurological Surgical History: Reports: None Social & Family History - Family History Family Medical History: Noncontributory - Tobacco Use Smoking Status *Q: Never Smoker - Caffeine Use Caffeine Use: Reports: Coffee - Recreational Drug Use Recreational Drug Use: No H&P Review of Systems - Review of Systems: Review Of Systems: See Below General: Denies: Fever, Chills HEENT: Reports: No Symptoms Pulmonary: Reports: No Symptoms Cardiovascular: Reports: No Symptoms Gastrointestinal: Reports: Abdominal Pain. Denies: Nausea, Vomiting Genitourinary: Reports: No Symptoms Musculoskeletal: Reports: No Symptoms Skin: Reports: No Symptoms Psychiatric: Reports: No Symptoms Exam - Exam Exam: See Below - Vital Signs Vital Signs: Last Vital Signs Temp 99.6 F 06/01/19 00:21 Pulse 123 H 06/01/19 00:21 Resp 16 06/01/19 00:21 BP 113/79 06/01/19 00:21 Pulse Ox 99 06/01/19 00:21 Weight: 91.2 kg - Exam General: Alert, Oriented, 4 Lungs: Clear to Auscultation, Normal Respiratory Effort Cardiovascular: Regular Rate, Regular Rhythm GI/Abdominal Exam: Soft, Tender (Super pubic Left lower quadrant) - Patient Data Lab Results Last 24 hrs: Laboratory Results - last 24 hr 05/31/19 05/31/19 05/31/19 Range/Units 20:50 20:50 20:50 WBC 14.7 H (4.5-11.0) K/uL RBC 4.36 (3.30-5.50) M/uL Hgb 13.2 D (12.0-15.0) g/dL Hct 39.7 (36.0-48.0) % MCV 91 (80-98) fL MCH 30 (27-31) pg MCHC 33 (32-36) % Plt Count 328 (150-400) K/uL Neut % (Auto) 79 H (36-66) % Lymph % (Auto) 9 L (24-44) % [place] % (Auto) 12 H (2-6) % Eos % (Auto) 0 L (2-4) % Baso % (Auto) 0 (0-1) % Sodium 136 L (140-148) mmol/L Potassium 3.3 L (3.6-5.2) mmol/L Chloride 100 (100-108) mmol/L Carbon Dioxide 26 (21-32) mmol/L Anion Gap 13.3 (5.0-14.0) mmol/L BUN 7 D (7-18) mg/dL Creatinine 0.7 (0.6-1.0) mg/dL Est Cr Clr Drug Dosing 87.48 mL/min Estimated GFR (MDRD) > 60 (>60) Glucose 117 H (74-106) mg/dL Lactic Acid 1.6 (0.4-2.0) mmol/L Calcium 9.0 (8.5-10.1) mg/dL Total Bilirubin 1.2 H (0.2-1.0) mg/dL AST 37 (15-37) U/L ALT 44 (12-78) U/L Alkaline Phosphatase 92 (46-116) U/L C-Reactive Protein (0.0-0.3) mg/dL Total Protein 8.2 (6.4-8.2) g/dL Albumin 3.4 (3.4-5.0) g/dL Globulin 4.8 H (2.3-3.5) g/dL Albumin/Globulin Ratio 0.7 L (1.2-2.2) Urine Color Urine Appearance Urine pH (4.5-8.0) Ur Specific [place] (1.008-1.030) Urine Protein (NEGATIVE) mg/dL Urine Glucose (UA) (NEGATIVE) mg/dL Urine Ketones (NEGATIVE) mg/dL Urine Occult Blood (NEGATIVE) Urine Nitrite (NEGATIVE) Urine Bilirubin (NEGATIVE) Urine Urobilinogen (NORMAL) mg/dL Ur Leukocyte Esterase (NEGATIVE) Urine RBC (0-5) Urine WBC (0-5) Ur Epithelial Cells Amorphous Sediment Urine Bacteria Urine Mucus 05/31/19 05/31/19 Range/Units 20:50 20:55 WBC (4.5-11.0) K/uL RBC (3.30-5.50) M/uL Hgb (12.0-15.0) g/dL Hct (36.0-48.0) % MCV (80-98) fL MCH (27-31) pg MCHC (32-36) % Plt Count (150-400) K/uL Neut % (Auto) (36-66) % Lymph % (Auto) (24-44) % [place] % (Auto) (2-6) % Eos % (Auto) (2-4) % Baso % (Auto) (0-1) % Sodium (140-148) mmol/L Potassium (3.6-5.2) mmol/L Chloride (100-108) mmol/L Carbon Dioxide (21-32) mmol/L Anion Gap (5.0-14.0) mmol/L BUN (7-18) mg/dL Creatinine (0.6-1.0) mg/dL Est Cr Clr Drug Dosing mL/min Estimated GFR (MDRD) (>60) Glucose (74-106) mg/dL Lactic Acid (0.4-2.0) mmol/L Calcium (8.5-10.1) mg/dL Total Bilirubin (0.2-1.0) mg/dL AST (15-37) U/L ALT (12-78) U/L Alkaline Phosphatase (46-116) U/L C-Reactive Protein 16.31 H (0.0-0.3) mg/dL Total Protein (6.4-8.2) g/dL Albumin (3.4-5.0) g/dL Globulin (2.3-3.5) g/dL Albumin/Globulin Ratio (1.2-2.2) Urine Color Yellow Urine Appearance Clear Urine pH 7.0 (4.5-8.0) Ur Specific [place] 1.010 (1.008-1.030) Urine Protein Negative (NEGATIVE) mg/dL Urine Glucose (UA) Normal (NEGATIVE) mg/dL Urine Ketones Negative (NEGATIVE) mg/dL Urine Occult Blood Moderate (NEGATIVE) Urine Nitrite Negative (NEGATIVE) Urine Bilirubin Negative (NEGATIVE) Urine Urobilinogen Normal (NORMAL) mg/dL Ur Leukocyte Esterase Negative (NEGATIVE) Urine RBC 5-10 H (0-5) Urine WBC Not seen (0-5) Ur Epithelial Cells Few Amorphous Sediment Not seen Urine Bacteria Few Urine Mucus Not seen Result Diagrams: 05/31/19 20:50 05/31/19 20:50 - Problem List (1) Diverticulitis large intestine SNOMED Code(s): 7428461 ICD Code: K57.32 - DVTRCLI OF LG INT W/O PERFORATION OR ABSCESS W/O BLEEDING Status: Acute Current Visit: No (2) Hypokalemia SNOMED Code(s): 76068109 ICD Code: E87.6 - HYPOKALEMIA Status: Acute Current Visit: No Problem List Initiated/Reviewed/Updated: Yes Orders Last 24hrs: Active Orders 24 hr Category Date Time Status Patient Status [ADT] Routine ADT 06/01/19 00:26 Ordered Ambulate [RC] QID Care 06/01/19 00:26 Ordered Height and Weight [RC] DAILY Care 06/01/19 00:26 Ordered Intake and Output [RC] QSHIFT Care 06/01/19 00:27 Ordered Oxygen Therapy [RC] PRN Care 06/01/19 00:26 Ordered Peripheral IV Care [RC] . DIRECTED Care 05/31/19 20:46 Active VTE/DVT Education [RC] Per Unit Routine Care 06/01/19 00:26 Ordered Vital Signs [RC] Q4H Care 06/01/19 00:26 Ordered Regular Diet [DIET] Diet 06/01/19 Breakfast Ordered CBC WITH AUTO DIFF [HEME] AM Lab 06/01/19 05:11 Ordered COMPREHENSIVE METABOLIC PN,CMP [CHEM] AM Lab 06/01/19 05:11 Ordered CULTURE BLOOD [BC] Urgent Lab 05/31/19 20:50 Received CULTURE BLOOD [BC] Urgent Lab 05/31/19 20:50 Received CULTURE URINE [RM] Stat Lab 05/31/19 20:55 Received HYDROmorphone [Dilaudid] Med 06/01/19 00:30 Ordered 0.5 mg IVPUSH Q2H PRN Lactobacillus Rhamnosus GG [Culturelle] Med 06/01/19 09:00 Ordered 1 cap PO BID Ondansetron [Zofran] Med 06/01/19 00:26 Ordered 4 mg IV Q6H PRN Piperacillin/Tazobactam [Zosyn] 3.375 gm Med 06/01/19 00:30 Ordered Sodium Chloride 0.9% [Normal Saline] 50 ml IV Q6H Piperacillin/Tazobactam [Zosyn] 4.5 gm Med 06/01/19 00:01 Active Sodium Chloride 0.9% [Normal Saline] 100 ml IV ONETIME Sodium Chloride 0.9% [Normal Saline] 1,000 ml Med 05/31/19 21:00 Active IV ASDIRECTED Sodium Chloride 0.9% [Normal Saline] 1,000 ml Med 05/31/19 22:30 Active IV ASDIRECTED Sodium Chloride 0.9% [Normal Saline] 1,000 ml Med 06/01/19 00:30 Ordered IV ASDIRECTED Sodium Chloride 0.9% [Normal Saline] 85 ml Med 05/31/19 22:00 Active IV ASDIRECTED Sodium Chloride 0.9% [Saline Flush] Med 05/31/19 20:46 Active 10 ml FLUSH ASDIRECTED PRN Blood Culture x2 Reflex Set [OM.PC] Urgent Oth 05/31/19 20:46 Ordered Peripheral IV Insertion Adult [OM.PC] Stat Oth 05/31/19 20:46 Ordered Resuscitation Status Routine Resus Stat 06/01/19 00:26 Ordered Medication Orders Sodium Chloride (Normal Saline) 1,000 mls @ 1,000 mls/hr IV ASDIRECTED COUNT INCLUDES THE [facility] Last Admin: 05/31/19 20:55 Dose: 1,000 mls/hr Sodium Chloride (Normal Saline) 85 mls @ 3.5 mls/sec IV ASDIRECTED COUNT INCLUDES THE [facility] Last Admin: 05/31/19 22:02 Dose: 3.5 mls/sec Sodium Chloride (Normal Saline) 1,000 mls @ 75 mls/hr IV ASDIRECTED COUNT INCLUDES THE [facility] Last Admin: 05/31/19 22:20 Dose: 75 mls/hr Piperacillin Sod/Tazobactam (Sod 4.5 gm/ Sodium Chloride) 100 mls @ 100 mls/hr IV ONETIME ONE Stop: 06/01/19 01:00 Last Admin: 06/01/19 00:20 Dose: 100 mls/hr Sodium Chloride (Saline Flush) 10 ml FLUSH ASDIRECTED PRN PRN Reason: Keep Vein Open Last Admin: 05/31/19 20:55 Dose: 10 ml Assessment/Plan Comment:: ASSESSMENT AND PLAN Diverticulitis with colitis large intestine plan for pain control antibiotics of Zosyn antibiotics Hyperkalemia gentle fluid replacement MAINTENANCE ISSUES -DVT prophylaxis; ambulation -GI prophylaxis; none -Hanson catheter; not indicated at this time -Nutrition; regular diet -Nicotine dependence; not require CODE STATUS-FULL CODE ADMISSION STATUS-patient will be admitted to inpatient status, expect at least a 2 night hospital stay for evaluation and management of problems as outlined above. At the time of this admission I do not reasonably expected evaluation and management of this problem will require more than a 96 hour hospital stay. DISPOSITION - anticipate discharge to home after the hospital stay. PRIMARY CARE PROVIDER -
[2019-06-01] MEDS ORDERED: Lactated Ringers 1,000 ML IV SCH (00:45)
[2019-06-01] MEDS: Piperacillin/Tazobactam 3.375 GM in Sodium Chloride 0.9% 50 ML IV SCH ×2 (00:47→05:50)
[2019-06-01] MEDS: HYDROmorphone 0.5 MG/0.5 ML Syringe IVPUSH PRN ×3 (02:10→06:10)
[2019-06-01] MEDS ORDERED: HYDROmorphone/Normal Saline 15 MG/30 ML PCA IV SCH (06:30)
[2019-06-01] MEDS: Lactobacillus Rhamnosus GG (Probiotic) Cap PO SCH ×2 (09:06→20:26)
[2019-06-01] MEDS: Sodium Chloride 0.9% 1,000 ML IV SCH (10:59)
--- NOTE | 2019-06-01 11:18 | PCM.PN ---
- General Info Date of Service: 06/01/19 Subjective Update: no acute events overnight following admission. No fever since presentation to the emergency room. She still reports moderate lower abdominal pain. This is better than at presentation. No significant nausea at this time. Tolerating current antibiotics. Functional Status: Reports: Pain Controlled - Review of Systems General: Reports: Fever Gastrointestinal: Reports: Abdominal Pain - Patient Data Vitals - Most Recent: Last Vital Signs Temp 37.3 C 06/01/19 07:41 Pulse 74 06/01/19 07:41 Resp 16 06/01/19 07:41 BP 113/72 06/01/19 07:41 Pulse Ox 96 06/01/19 07:41 Weight - Most Recent: 92.986 kg I&O - Last 24 Hours: Intake & Output 05/31/19 06/01/19 06/01/19 22:59 06:59 14:59 Intake Total 2201 Output Total 600 Balance 1601 Lab Results Last 24 Hours: Laboratory Results - last 24 hr 05/31/19 05/31/19 05/31/19 Range/Units 20:50 20:50 20:50 WBC 14.7 H (4.5-11.0) K/uL RBC 4.36 (3.30-5.50) M/uL Hgb 13.2 D (12.0-15.0) g/dL Hct 39.7 (36.0-48.0) % MCV 91 (80-98) fL MCH 30 (27-31) pg MCHC 33 (32-36) % Plt Count 328 (150-400) K/uL Neut % (Auto) 79 H (36-66) % Lymph % (Auto) 9 L (24-44) % [place] % (Auto) 12 H (2-6) % Eos % (Auto) 0 L (2-4) % Baso % (Auto) 0 (0-1) % Sodium 136 L (140-148) mmol/L Potassium 3.3 L (3.6-5.2) mmol/L Chloride 100 (100-108) mmol/L Carbon Dioxide 26 (21-32) mmol/L Anion Gap 13.3 (5.0-14.0) mmol/L BUN 7 D (7-18) mg/dL Creatinine 0.7 (0.6-1.0) mg/dL Est Cr Clr Drug Dosing 87.48 mL/min Estimated GFR (MDRD) > 60 (>60) Glucose 117 H (74-106) mg/dL Lactic Acid 1.6 (0.4-2.0) mmol/L Calcium 9.0 (8.5-10.1) mg/dL Total Bilirubin 1.2 H (0.2-1.0) mg/dL AST 37 (15-37) U/L ALT 44 (12-78) U/L Alkaline Phosphatase 92 (46-116) U/L C-Reactive Protein (0.0-0.3) mg/dL Total Protein 8.2 (6.4-8.2) g/dL Albumin 3.4 (3.4-5.0) g/dL Globulin 4.8 H (2.3-3.5) g/dL Albumin/Globulin Ratio 0.7 L (1.2-2.2) Urine Color Urine Appearance Urine pH (4.5-8.0) Ur Specific [place] (1.008-1.030) Urine Protein (NEGATIVE) mg/dL Urine Glucose (UA) (NEGATIVE) mg/dL Urine Ketones (NEGATIVE) mg/dL Urine Occult Blood (NEGATIVE) Urine Nitrite (NEGATIVE) Urine Bilirubin (NEGATIVE) Urine Urobilinogen (NORMAL) mg/dL Ur Leukocyte Esterase (NEGATIVE) Urine RBC (0-5) Urine WBC (0-5) Ur Epithelial Cells Amorphous Sediment Urine Bacteria Urine Mucus 05/31/19 05/31/19 06/01/19 Range/Units 20:50 20:55 04:40 WBC 13.0 H (4.5-11.0) K/uL RBC 3.53 (3.30-5.50) M/uL Hgb 10.6 L D (12.0-15.0) g/dL Hct 32.9 L (36.0-48.0) % MCV 93 (80-98) fL MCH 30 (27-31) pg MCHC 32 (32-36) % Plt Count 270 (150-400) K/uL Neut % (Auto) 76 H (36-66) % Lymph % (Auto) 12 L (24-44) % [place] % (Auto) 11 H (2-6) % Eos % (Auto) 0 L (2-4) % Baso % (Auto) 0 (0-1) % Sodium (140-148) mmol/L Potassium (3.6-5.2) mmol/L Chloride (100-108) mmol/L Carbon Dioxide (21-32) mmol/L Anion Gap (5.0-14.0) mmol/L BUN (7-18) mg/dL Creatinine (0.6-1.0) mg/dL Est Cr Clr Drug Dosing mL/min Estimated GFR (MDRD) (>60) Glucose (74-106) mg/dL Lactic Acid (0.4-2.0) mmol/L Calcium (8.5-10.1) mg/dL Total Bilirubin (0.2-1.0) mg/dL AST (15-37) U/L ALT (12-78) U/L Alkaline Phosphatase (46-116) U/L C-Reactive Protein 16.31 H (0.0-0.3) mg/dL Total Protein (6.4-8.2) g/dL Albumin (3.4-5.0) g/dL Globulin (2.3-3.5) g/dL Albumin/Globulin Ratio (1.2-2.2) Urine Color Yellow Urine Appearance Clear Urine pH 7.0 (4.5-8.0) Ur Specific [place] 1.010 (1.008-1.030) Urine Protein Negative (NEGATIVE) mg/dL Urine Glucose (UA) Normal (NEGATIVE) mg/dL Urine Ketones Negative (NEGATIVE) mg/dL Urine Occult Blood Moderate (NEGATIVE) Urine Nitrite Negative (NEGATIVE) Urine Bilirubin Negative (NEGATIVE) Urine Urobilinogen Normal (NORMAL) mg/dL Ur Leukocyte Esterase Negative (NEGATIVE) Urine RBC 5-10 H (0-5) Urine WBC Not seen (0-5) Ur Epithelial Cells Few Amorphous Sediment Not seen Urine Bacteria Few Urine Mucus Not seen 06/01/19 06/01/19 06/01/19 Range/Units 04:40 05:34 05:35 WBC (4.5-11.0) K/uL RBC (3.30-5.50) M/uL Hgb (12.0-15.0) g/dL Hct (36.0-48.0) % MCV (80-98) fL MCH (27-31) pg MCHC (32-36) % Plt Count (150-400) K/uL Neut % (Auto) (36-66) % Lymph % (Auto) (24-44) % [place] % (Auto) (2-6) % Eos % (Auto) (2-4) % Baso % (Auto) (0-1) % Sodium 140 (140-148) mmol/L Potassium 3.4 L (3.6-5.2) mmol/L Chloride 103 (100-108) mmol/L Carbon Dioxide 26 (21-32) mmol/L Anion Gap 14.4 H (5.0-14.0) mmol/L BUN 5 L (7-18) mg/dL Creatinine 0.8 (0.6-1.0) mg/dL Est Cr Clr Drug Dosing 76.54 mL/min Estimated GFR (MDRD) > 60 (>60) Glucose 112 H (74-106) mg/dL Lactic Acid 1.2 (0.4-2.0) mmol/L Calcium 8.0 L (8.5-10.1) mg/dL Total Bilirubin 1.2 H (0.2-1.0) mg/dL AST 22 (15-37) U/L ALT 33 (12-78) U/L Alkaline Phosphatase 70 (46-116) U/L C-Reactive Protein 16.96 H (0.0-0.3) mg/dL Total Protein 6.5 (6.4-8.2) g/dL Albumin 2.6 L (3.4-5.0) g/dL Globulin 3.9 H (2.3-3.5) g/dL Albumin/Globulin Ratio 0.7 L (1.2-2.2) Urine Color Urine Appearance Urine pH (4.5-8.0) Ur Specific [place] (1.008-1.030) Urine Protein (NEGATIVE) mg/dL Urine Glucose (UA) (NEGATIVE) mg/dL Urine Ketones (NEGATIVE) mg/dL Urine Occult Blood (NEGATIVE) Urine Nitrite (NEGATIVE) Urine Bilirubin (NEGATIVE) Urine Urobilinogen (NORMAL) mg/dL Ur Leukocyte Esterase (NEGATIVE) Urine RBC (0-5) Urine WBC (0-5) Ur Epithelial Cells Amorphous Sediment Urine Bacteria Urine Mucus Med Orders - Current: Current Medications Hydromorphone HCl (Dilaudid [employer] 15 Mg In Ns 30 Ml) 15 mg IV ASDIRECTED [facility]; Protocol Last Admin: 06/01/19 06:31 Dose: 15 mg Sodium Chloride (Normal Saline) 1,000 mls @ 75 mls/hr IV ASDIRECTED NATALIE Last Admin: 06/01/19 10:59 Dose: 75 mls/hr Lactated Ringer's (Ringers, Lactated) 1,000 mls @ 150 mls/hr IV ASDIRECTED NATALIE Last Admin: 06/01/19 04:17 Dose: 150 mls/hr Piperacillin/Tazobactam/ (Dextrose 3.375 gm/ Premix) 50 mls @ 100 mls/hr IV Q6H [facility] Lactobacillus Rhamnosus (Culturelle) 1 cap PO BID NATALIE Last Admin: 06/01/19 09:06 Dose: 1 cap Ondansetron HCl (Zofran) 4 mg IV Q6H PRN PRN Reason: Nausea/Vomiting Last Admin: 06/01/19 01:33 Dose: 4 mg Sodium Chloride (Saline Flush) 10 ml FLUSH ASDIRECTED PRN PRN Reason: Keep Vein Open Last Admin: 05/31/19 20:55 Dose: 10 ml Discontinued Medications Hydromorphone HCl (Dilaudid) 0.5 mg IVPUSH ONETIME ONE Stop: 05/31/19 20:48 Last Admin: 05/31/19 20:55 Dose: 0.5 mg Hydromorphone HCl (Dilaudid) 0.5 mg IVPUSH ONETIME ONE Stop: 05/31/19 22:19 Last Admin: 05/31/19 22:22 Dose: 0.5 mg Hydromorphone HCl (Dilaudid) 0.5 mg IVPUSH ONETIME ONE Stop: 06/01/19 00:15 Last Admin: 06/01/19 00:17 Dose: 0.5 mg Hydromorphone HCl (Dilaudid) 0.5 mg IVPUSH Q2H PRN PRN Reason: Pain Last Admin: 06/01/19 06:10 Dose: 0.5 mg Sodium Chloride (Normal Saline) 1,000 mls @ 1,000 mls/hr IV ASDIRECTED NATALIE Last Admin: 05/31/19 20:55 Dose: 1,000 mls/hr Sodium Chloride (Normal Saline) 85 mls @ 3.5 mls/sec IV ASDIRECTED NATALIE Last Admin: 05/31/19 22:02 Dose: 3.5 mls/sec Piperacillin Sod/Tazobactam (Sod 4.5 gm/ Sodium Chloride) 100 mls @ 100 mls/hr IV ONETIME ONE Stop: 06/01/19 01:00 Last Admin: 06/01/19 00:20 Dose: 100 mls/hr Piperacillin Sod/Tazobactam (Sod 3.375 gm/ Sodium Chloride) 50 mls @ 100 mls/ hr IV Q6H NATALIE Stop: 06/01/19 08:00 Last Admin: 06/01/19 05:50 Dose: 100 mls/hr Sodium Chloride (Normal Saline) 1,000 mls @ 150 mls/hr IV ASDIRECTED NATALIE Iopamidol (Isovue-300 (61%)) 137 ml IV . DIRECTED ONE Stop: 05/31/19 21:47 Last Admin: 05/31/19 22:02 Dose: 137 ml - Exam Quality Assessment: No: Supplemental Oxygen General: Alert, Oriented, Cooperative, No Acute Distress Lungs: Normal Respiratory Effort GI/Abdominal Exam: Soft, No Distention Extremities: No Pedal Edema Psy/Mental Status: Alert, Normal Affect - Problem List Review Problem List Initiated/Reviewed/Updated: Yes - My Orders Last 24 Hours: My Active Orders 06/01/19 01:49 Antiembolic Devices [RC] .Routine Sequential Compression Device [OM.PC] Routine 06/01/19 09:16 Pressure Reduction Mattress [OM.PC] Routine 06/01/19 11:15 Dextrose 5%-Lactated Ringers with KCl 20 mEq @ 75 mL/Hr (1000 mL) Dextrose 5%- Lact Ringers w/KCl [D5 LR with 20 mEq KCl] 1,000 ml IV ASDIRECTED Potassium Chloride 20 MEQ,Lidocaine 1% 2 ML IN 100ML NS @ 50 MLS/HR Potassium Chloride 20 meq Lidocaine 1% [Xylocaine 1%] 2 ml Sodium Chloride 0.9% [Normal Saline] 100 ml IV Q2H 06/01/19 11:16 Dietary Supplements [RC] TIDMEALS 06/01/19 Lunch Full Liquid Diet [DIET] 06/02/19 05:00 BASIC METABOLIC PANEL,BMP [CHEM] Timed CBC W/O DIFF,HEMOGRAM [HEME] Timed (1) - Plan Plan:: ASSESSMENT AND PLAN 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 Significant area of the colon involved including descending and sigmoid colon. No sepsis at this time. No evidence for obvious abscess at this time but fairly quick recurrence. Unclear if there is underlying colitis in addition to the diverticulitis. -Continue Pip/Tazo -Steroids every 8 hours for 3 doses -Pain control -Nausea control -Gentle IV fluids -optimize protein intake -Surgical consultation with Dr. Pierre when he is available early in the week Hyperkalemia - mild at this time. -Potassium 40 mEq this morning -Labs in the morning MAINTENANCE ISSUES -DVT prophylaxis; ambulation -GI prophylaxis; none -Hanson catheter; not indicated at this time -Nutrition; full liquids DISPOSITION - anticipate discharge to home after the hospital stay. Jonathan Ordonez M.D.
[2019-06-01] MEDS ORDERED: methylPREDNISolone Sodium Succinate 125 MG/2 ML SDV IVPUSH ONE (12:00)
[2019-06-01] MEDS: Acetaminophen 325 MG Tab PO PRN (12:07)
[2019-06-01] MEDS: Piperacillin/Tazobactam/Dext 3.375 GM in Premix Bag 1 BAG IV SCH ×2 (12:57→18:12)
[2019-06-01] MEDS: Potassium Chloride 20 MEQ, Lidocaine 1% 2 ML in Sodium Chloride 0.9% 100 ML IV SCH ×2 (13:56→15:57)
[2019-06-01] MEDS: Dextrose 5%-Lact Ringers w/KCl 1,000 ML IV SCH (16:01)
[2019-06-01] MEDS ORDERED: methylPREDNISolone Sodium Succinate 125 MG/2 ML SDV IVPUSH SCH (20:00)
[2019-06-02] MEDS: Piperacillin/Tazobactam/Dext 3.375 GM in Premix Bag 1 BAG IV SCH ×4 (03:00→17:20)
[2019-06-02] MEDS: Dextrose 5%-Lact Ringers w/KCl 1,000 ML IV SCH (06:18)
[2019-06-02] MEDS ORDERED: methylPREDNISolone Sodium Succinate 125 MG/2 ML SDV IVPUSH SCH (09:00)
[2019-06-02] MEDS ORDERED: HYDROmorphone 0.5 MG/0.5 ML Syringe IVPUSH PRN (09:09)
--- NOTE | 2019-06-02 09:12 | PCM.PN ---
- General Info Date of Service: 06/02/19 Subjective Update: No acute events overnight. Abdominal pain has been improving but has not resolved. She did have a bowel movement. No significant nausea. No fevers overnight. White blood cell count is little better today. I did discuss the case with Dr. Pierre who has previously consult on the patient. Recommendation was to consider outpatient IV antibiotics and follow-up as previously planned for colonoscopy and then consideration of colon resection. Functional Status: Reports: Pain Controlled, Tolerating Diet - Review of Systems General: Denies: Fever Gastrointestinal: Reports: Abdominal Pain - Patient Data Vitals - Most Recent: Last Vital Signs Temp 36.4 C 06/02/19 07:57 Pulse 93 06/02/19 07:57 Resp 16 06/02/19 07:57 BP 114/72 06/02/19 07:57 Pulse Ox 97 06/02/19 07:57 Weight - Most Recent: 92.986 kg I&O - Last 24 Hours: Intake & Output 06/01/19 06/02/19 06/02/19 22:59 06:59 14:59 Intake Total 2673 1758 Output Total 1100 700 Balance 1573 1058 Lab Results Last 24 Hours: Laboratory Results - last 24 hr 06/02/19 06/02/19 Range/Units 05:22 05:22 WBC 13.1 H (4.5-11.0) K/uL RBC 3.43 (3.30-5.50) M/uL Hgb 10.3 L (12.0-15.0) g/dL Hct 31.9 L (36.0-48.0) % MCV 93 (80-98) fL MCH 30 (27-31) pg MCHC 32 (32-36) % Plt Count 254 (150-400) K/uL Sodium 141 (140-148) mmol/L Potassium 3.5 L (3.6-5.2) mmol/L Chloride 107 (100-108) mmol/L Carbon Dioxide 25 (21-32) mmol/L Anion Gap 12.5 (5.0-14.0) mmol/L BUN 4 L (7-18) mg/dL Creatinine 0.6 (0.6-1.0) mg/dL Est Cr Clr Drug Dosing 102.06 mL/min Estimated GFR (MDRD) > 60 (>60) Glucose 174 H (74-106) mg/dL Calcium 8.9 (8.5-10.1) mg/dL Juan Results Last 24 Hours: Microbiology 05/31/19 20:55 Urine Culture - Preliminary Urine, Bladder NO GROWTH AFTER 1 DAY 05/31/19 20:50 Aerobic Blood Culture - Preliminary Blood - Venous NO GROWTH AFTER 1 DAY Anaerobic Blood Culture - Preliminary NO GROWTH AFTER 1 DAY 05/31/19 20:50 Aerobic Blood Culture - Preliminary Blood - Venous - Lab Draw NO GROWTH AFTER 1 DAY Anaerobic Blood Culture - Preliminary NO GROWTH AFTER 1 DAY Med Orders - Current: Current Medications Acetaminophen (Tylenol) 650 mg PO Q4H PRN PRN Reason: Pain/Fever Last Admin: 06/01/19 12:07 Dose: 650 mg Hydromorphone HCl (Dilaudid) 0.5 mg IVPUSH Q2H PRN PRN Reason: Pain (severe 7-10) Piperacillin/Tazobactam/ (Dextrose 3.375 gm/ Premix) 50 mls @ 100 mls/hr IV Q6H [facility] Last Admin: 06/02/19 06:26 Dose: 100 mls/hr Lactobacillus Rhamnosus (Culturelle) 1 cap PO BID [facility] Last Admin: 06/01/19 20:26 Dose: 1 cap Ondansetron HCl (Zofran) 4 mg IV Q6H PRN PRN Reason: Nausea/Vomiting Last Admin: 06/01/19 01:33 Dose: 4 mg Oxycodone HCl (Oxycodone) 5 mg PO Q4H PRN PRN Reason: Pain (moderate 4-6) Potassium Chloride (Klor-Con M20) 40 meq PO BID [facility] Stop: 06/02/19 21:01 Sodium Chloride (Saline Flush) 10 ml FLUSH ASDIRECTED PRN PRN Reason: Keep Vein Open Last Admin: 05/31/19 20:55 Dose: 10 ml Discontinued Medications Hydromorphone HCl (Dilaudid) 0.5 mg IVPUSH ONETIME ONE Stop: 05/31/19 20:48 Last Admin: 05/31/19 20:55 Dose: 0.5 mg Hydromorphone HCl (Dilaudid) 0.5 mg IVPUSH ONETIME ONE Stop: 05/31/19 22:19 Last Admin: 05/31/19 22:22 Dose: 0.5 mg Hydromorphone HCl (Dilaudid) 0.5 mg IVPUSH ONETIME ONE Stop: 06/01/19 00:15 Last Admin: 06/01/19 00:17 Dose: 0.5 mg Hydromorphone HCl (Dilaudid) 0.5 mg IVPUSH Q2H PRN PRN Reason: Pain Last Admin: 06/01/19 06:10 Dose: 0.5 mg Hydromorphone HCl (Dilaudid [employer] 15 Mg In Ns 30 Ml) 15 mg IV ASDIRECTED NATALIE; Protocol Last Admin: 06/01/19 06:31 Dose: 15 mg Sodium Chloride (Normal Saline) 1,000 mls @ 1,000 mls/hr IV ASDIRECTED NATALIE Last Admin: 05/31/19 20:55 Dose: 1,000 mls/hr Sodium Chloride (Normal Saline) 85 mls @ 3.5 mls/sec IV ASDIRECTED NATALIE Last Admin: 05/31/19 22:02 Dose: 3.5 mls/sec Sodium Chloride (Normal Saline) 1,000 mls @ 75 mls/hr IV ASDIRECTED NATALIE Last Admin: 06/01/19 10:59 Dose: 75 mls/hr Piperacillin Sod/Tazobactam (Sod 4.5 gm/ Sodium Chloride) 100 mls @ 100 mls/hr IV ONETIME ONE Stop: 06/01/19 01:00 Last Admin: 06/01/19 00:20 Dose: 100 mls/hr Piperacillin Sod/Tazobactam (Sod 3.375 gm/ Sodium Chloride) 50 mls @ 100 mls/ hr IV Q6H [facility] Stop: 06/01/19 08:00 Last Admin: 06/01/19 05:50 Dose: 100 mls/hr Sodium Chloride (Normal Saline) 1,000 mls @ 150 mls/hr IV ASDIRECTED NATALIE Lactated Ringer's (Ringers, Lactated) 1,000 mls @ 150 mls/hr IV ASDIRECTED NATALIE Last Admin: 06/01/19 04:17 Dose: 150 mls/hr Potassium Cl/Dextrose/Lact Ringer's (D5 Lr With 20 Meq Kcl) 1,000 mls @ 75 mls/ hr IV ASDIRECTED NATALIE Last Admin: 06/02/19 06:18 Dose: 75 mls/hr Potassium Chloride 20 meq/Lidocaine HCl 2 ml/ Sodium Chloride 112 mls @ 56 mls/ hr IV Q2H [facility] Stop: 06/01/19 15:59 Last Admin: 06/01/19 15:57 Dose: 56 mls/hr Iopamidol (Isovue-300 (61%)) 137 ml IV . DIRECTED ONE Stop: 05/31/19 21:47 Last Admin: 05/31/19 22:02 Dose: 137 ml Methylprednisolone Sodium Succinate (Solu-Medrol) 125 mg IVPUSH ONETIME ONE Stop: 06/01/19 12:01 Last Admin: 06/01/19 12:55 Dose: 125 mg Methylprednisolone Sodium Succinate (Solu-Medrol) 62.5 mg IVPUSH Q8H [facility] Stop: 06/01/19 20:01 Last Admin: 06/01/19 20:26 Dose: 62.5 mg Methylprednisolone Sodium Succinate (Solu-Medrol) 62.5 mg IVPUSH DAILY [facility] Stop: 06/02/19 09:01 - Exam Quality Assessment: No: Supplemental Oxygen General: Alert, Oriented, Cooperative, No Acute Distress Lungs: Normal Respiratory Effort GI/Abdominal Exam: Soft, No Distention Extremities: No Pedal Edema Skin: Warm, Dry Psy/Mental Status: Alert, Normal Affect - Problem List Review Problem List Initiated/Reviewed/Updated: Yes - My Orders Last 24 Hours: My Active Orders 06/01/19 09:16 Pressure Reduction Mattress [OM.PC] Routine 06/01/19 11:16 Dietary Supplements [RC] TIDMEALS 06/01/19 11:39 Acetaminophen [Tylenol] 650 mg PO Q4H PRN 06/01/19 Lunch Full Liquid Diet [DIET] 06/02/19 09:00 Potassium Chloride [Klor-Con M20] 40 meq PO BID 06/02/19 09:09 HYDROmorphone [Dilaudid] 0.5 mg IVPUSH Q2H PRN oxyCODONE 5 mg PO Q4H PRN 06/02/19 09:10 Central Line Assessment [RC] QSHIFT Convert IV to Saline Lock [OM.PC] Routine 06/03/19 05:00 BASIC METABOLIC PANEL,BMP [CHEM] Timed CBC W/O DIFF,HEMOGRAM [HEME] Timed (1) 06/03/19 07:00 Central Line PICC Insertion [Central Venous Line Insertion] [OM.PC] Routine - Plan Plan:: ASSESSMENT AND PLAN 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 Significant area of the colon involved including descending and sigmoid colon. Pain control improved overnight. Tolerating diet. No fevers. -Continue Pip/Tazo, consider transition to ertapenem for outpatient antibiotics tomorrow -Pain control -Nausea control -Saline lock IV -optimize protein intake -PICC line placement in the morning for long-term IV antibiotics Hyperkalemia - mild at this time but still low. -Potassium 40 mEq -Labs in the morning MAINTENANCE ISSUES -DVT prophylaxis; ambulation -GI prophylaxis; none -Hanson catheter; not indicated at this time -Nutrition; full liquids DISPOSITION - anticipate discharge to home after the hospital stay. Jonathan Ordonez M.D.
[2019-06-02] MEDS: Potassium Chloride 20 MEQ Tab.ER PO SCH ×2 (09:17→21:48)
[2019-06-02] MEDS: Lactobacillus Rhamnosus GG (Probiotic) Cap PO SCH ×2 (09:18→21:47)
[2019-06-02] MEDS ORDERED: Calcium Carbonate 500 MG Tab.Chew PO PRN (10:52)
[2019-06-02] MEDS: oxyCODONE 5 MG Tab PO PRN ×2 (17:17→21:51)
[2019-06-03] MEDS: Piperacillin/Tazobactam/Dext 3.375 GM in Premix Bag 1 BAG IV SCH ×2 (00:11→05:12)
[2019-06-03] MEDS: oxyCODONE 5 MG Tab PO PRN ×3 (04:44→14:00)
[2019-06-03] MEDS: Lactobacillus Rhamnosus GG (Probiotic) Cap PO SCH (08:18)
[2019-06-03] MEDS: Acetaminophen 325 MG Tab PO PRN (09:56)
[2019-06-03] MEDS ORDERED: Ertapenem 1 GM in Sodium Chloride 0.9% 100 ML IV SCH (11:00)
--- NOTE | 2019-06-03 13:31 | PCM.DCSUM1 ---
Discharge Summary - Hospital Course Brief History: Ms. Luo is a 48-year-old woman who was admitted through the emergency department with abdominal pain secondary to recurrent diverticulitis and colitis. - Discharge Data Discharge Date: 06/03/19 Discharge Disposition: Home, [facility] 06 Condition: Fair - Discharge Diagnosis/Problem(s) (1) Colitis SNOMED Code(s): 21865416 ICD Code: K52.9 - NONINFECTIVE GASTROENTERITIS AND COLITIS, UNSPECIFIED Status: Acute Current Visit: Yes (2) Diverticulitis large intestine SNOMED Code(s): 7232796 ICD Code: K57.32 - DVTRCLI OF LG INT W/O PERFORATION OR ABSCESS W/O BLEEDING Status: Acute Priority: High Current Visit: Yes Qualifiers: Diverticulitis bleeding: unspecified bleeding status Diverticulitis complication: unspecified complication status Qualified Code(s): K57.32 - Diverticulitis of large intestine without perforation or abscess without bleeding - Patient Summary/Data Hospital Course: Ms Luo is a 48-year-old female who was hospitalized just over 1 month ago for acute diverticulitis. She spent several days in the hospital and discharged on antibiotics. She does have a significant 15 year history of diverticulitis has discussed with surgery the option of hemicolectomy for her recurrent diverticulitis. Colonoscopy is scheduled in July and then possible surgical intervention at that time. Unfortunately over the last day she has had progressively increasing pain no fevers no nausea vomiting. On admission she was given IV fluids for hydration and kept nothing by mouth. IV antibiotic therapy was initiated with Zosyn. By the time of discharge her pain had improved significantly but had not totally resolved. Hospitalization was reviewed with Dr. Pierre who would like to proceed with outpatient IV antibiotic therapy with ertapenem 1 g IV every 24 hours for 4 weeks. Plan would be to proceed with colonoscopy and surgery after she has completed antibiotic therapy, when these procedures could be done electively out the setting of inflammation and infection. Follow-up appointment has been scheduled with Dr. Pierre in one week. PICC line will be placed prior to discharge and home care services will be scheduled for antibiotic therapy. Activity will be as tolerated and she will resume a soft low residue diet. She will return to the emergency department if she notes recurrent pain or fever. - Patient Instructions Diet: GI Soft/Low Residue/Low Fiber Activity: As Tolerated Other/Special Instructions: Follow-up with Dr. Pierre as scheduled next week. Ertapenem 1 g IV every 24 hours 4 weeks. - Discharge Plan *PRESCRIPTION DRUG MONITORING PROGRAM REVIEWED*: Not Applicable *COPY OF PRESCRIPTION DRUG MONITORING REPORT IN PATIENT EDIS: Not Applicable Prescriptions/Med Rec: Ertapenem [INVanz] 1 gm IV Q24H #28 vial Hydrocodone/Acetaminophen [Hydrocodon-Acetaminophen 5-325] 1 each PO Q4H #20 tablet Home Medications: Home Meds Lactobacillus Rhamnosus GG [Culturelle] 1 cap PO BID #60 cap 04/28/19 [Rx] Ertapenem [INVanz] 1 gm IV Q24H #28 vial 06/03/19 [Rx] Hydrocodone/Acetaminophen [Hydrocodon-Acetaminophen 5-325] 1 each PO Q4H #20 tablet 06/03/19 [Rx] Referrals: Prashanth Pierre MD [Physician] - 06/11/19 1:00 pm (Please arrive 15 minutes early to register for your appointment. ) - Discharge Summary/Plan Comment DC Time >30 min.: No - Patient Data Vitals - Most Recent: Last Vital Signs Temp 97.9 F 06/03/19 10:09 Pulse 83 06/03/19 10:09 Resp 16 06/03/19 10:09 BP 147/98 H 06/03/19 10:09 Pulse Ox 100 06/03/19 10:09 Weight - Most Recent: 204 lb 15.984 oz I&O - Last 24 hours: Intake & Output 06/02/19 06/03/19 06/03/19 22:59 06:59 14:59 Intake Total 1260 50 100 Output Total 600 200 600 Balance 660 -150 -500 DEAN Results - Last 24 hrs: Microbiology 05/31/19 20:55 Urine Culture - Final Urine, Bladder NO GROWTH AFTER 2 DAYS 05/31/19 20:50 Aerobic Blood Culture - Preliminary Blood - Venous NO GROWTH AFTER 2 DAYS Anaerobic Blood Culture - Preliminary NO GROWTH AFTER 2 DAYS 05/31/19 20:50 Aerobic Blood Culture - Preliminary Blood - Venous - Lab Draw NO GROWTH AFTER 2 DAYS Anaerobic Blood Culture - Preliminary NO GROWTH AFTER 2 DAYS Med Orders - Current: Current Medications Acetaminophen (Tylenol) 650 mg PO Q4H PRN PRN Reason: Pain/Fever Last Admin: 06/03/19 09:56 Dose: 650 mg Calcium Carbonate/Glycine (Tums) 1,000 mg PO Q2H PRN PRN Reason: Indigestion Last Admin: 06/02/19 11:16 Dose: 1,000 mg Hydromorphone HCl (Dilaudid) 0.5 mg IVPUSH Q2H PRN PRN Reason: Pain (severe 7-10) Ertapenem 1 gm/ Sodium (Chloride) 100 mls @ 200 mls/hr IV Q24H NATALIE Last Admin: 06/03/19 11:08 Dose: 200 mls/hr Lactobacillus Rhamnosus (Culturelle) 1 cap PO BID NATALIE Last Admin: 06/03/19 08:18 Dose: 1 cap Ondansetron HCl (Zofran) 4 mg IV Q6H PRN PRN Reason: Nausea/Vomiting Last Admin: 06/01/19 01:33 Dose: 4 mg Oxycodone HCl (Oxycodone) 5 mg PO Q4H PRN PRN Reason: Pain (moderate 4-6) Last Admin: 06/03/19 09:57 Dose: 5 mg Sodium Chloride (Saline Flush) 10 ml FLUSH ASDIRECTED PRN PRN Reason: Keep Vein Open Last Admin: 05/31/19 20:55 Dose: 10 ml Discontinued Medications Hydromorphone HCl (Dilaudid) 0.5 mg IVPUSH ONETIME ONE Stop: 05/31/19 20:48 Last Admin: 05/31/19 20:55 Dose: 0.5 mg Hydromorphone HCl (Dilaudid) 0.5 mg IVPUSH ONETIME ONE Stop: 05/31/19 22:19 Last Admin: 05/31/19 22:22 Dose: 0.5 mg Hydromorphone HCl (Dilaudid) 0.5 mg IVPUSH ONETIME ONE Stop: 06/01/19 00:15 Last Admin: 06/01/19 00:17 Dose: 0.5 mg Hydromorphone HCl (Dilaudid) 0.5 mg IVPUSH Q2H PRN PRN Reason: Pain Last Admin: 06/01/19 06:10 Dose: 0.5 mg Hydromorphone HCl (Dilaudid Personalized Living Manager 15 Mg In Ns 30 Ml) 15 mg IV ASDIRECTED NATALIE; Protocol Last Admin: 06/01/19 06:31 Dose: 15 mg Sodium Chloride (Normal Saline) 1,000 mls @ 1,000 mls/hr IV ASDIRECTED NATALIE Last Admin: 05/31/19 20:55 Dose: 1,000 mls/hr Sodium Chloride (Normal Saline) 85 mls @ 3.5 mls/sec IV ASDIRECTED NATALIE Last Admin: 05/31/19 22:02 Dose: 3.5 mls/sec Sodium Chloride (Normal Saline) 1,000 mls @ 75 mls/hr IV ASDIRECTED NATALIE Last Admin: 06/01/19 10:59 Dose: 75 mls/hr Piperacillin Sod/Tazobactam (Sod 4.5 gm/ Sodium Chloride) 100 mls @ 100 mls/hr IV ONETIME ONE Stop: 06/01/19 01:00 Last Admin: 06/01/19 00:20 Dose: 100 mls/hr Piperacillin Sod/Tazobactam (Sod 3.375 gm/ Sodium Chloride) 50 mls @ 100 mls/ hr IV Q6H [facility] Stop: 06/01/19 08:00 Last Admin: 06/01/19 05:50 Dose: 100 mls/hr Sodium Chloride (Normal Saline) 1,000 mls @ 150 mls/hr IV ASDIRECTED NATALIE Lactated Ringer's (Ringers, Lactated) 1,000 mls @ 150 mls/hr IV ASDIRECTED NATALIE Last Admin: 06/01/19 04:17 Dose: 150 mls/hr Piperacillin/Tazobactam/ (Dextrose 3.375 gm/ Premix) 50 mls @ 100 mls/hr IV Q6H [facility] Last Admin: 06/03/19 05:12 Dose: 100 mls/hr Potassium Cl/Dextrose/Lact Ringer's (D5 Lr With 20 Meq Kcl) 1,000 mls @ 75 mls/ hr IV ASDIRECTED NATALIE Last Admin: 06/02/19 06:18 Dose: 75 mls/hr Potassium Chloride 20 meq/Lidocaine HCl 2 ml/ Sodium Chloride 112 mls @ 56 mls/ hr IV Q2H NATALIE Stop: 06/01/19 15:59 Last Admin: 06/01/19 15:57 Dose: 56 mls/hr Iopamidol (Isovue-300 (61%)) 137 ml IV . DIRECTED ONE Stop: 05/31/19 21:47 Last Admin: 05/31/19 22:02 Dose: 137 ml Methylprednisolone Sodium Succinate (Solu-Medrol) 125 mg IVPUSH ONETIME ONE Stop: 06/01/19 12:01 Last Admin: 06/01/19 12:55 Dose: 125 mg Methylprednisolone Sodium Succinate (Solu-Medrol) 62.5 mg IVPUSH Q8H NATALIE Stop: 06/01/19 20:01 Last Admin: 06/01/19 20:26 Dose: 62.5 mg Methylprednisolone Sodium Succinate (Solu-Medrol) 62.5 mg IVPUSH DAILY NATALIE Stop: 06/02/19 09:01 Last Admin: 06/02/19 09:18 Dose: 62.5 mg Potassium Chloride (Klor-Con M20) 40 meq PO BID NATALIE Stop: 06/02/19 21:01 Last Admin: 06/02/19 21:48 Dose: 40 meq - Exam General: Reports: Alert, Oriented, Cooperative, Mild Distress Lungs: Reports: Clear to Auscultation, Normal Respiratory Effort Cardiovascular: Reports: Regular Rate, Regular Rhythm, No Murmurs GI/Abdominal Exam: Soft, No Organomegaly, Tender. No: Distended, Guarding, Rigid, Rebound Extremities: Non-Tender, No Pedal Edema
== END 2019-06-03 14:24 | disposition home health service (06) | DRG 244 ==
LOC: JP.ED 20:29 → JP.MS 06-01 00:26
PROVIDERS: ADMIT Internal Medicine; ATTEND Hospitalist
PROC: 05HY33Z Insertion of Infusion Device into Upper Vein, Percutaneous Approach (ICD-10-PCS; principal; 2019-06-03)
PROC: 3E03329 Introduction of Other Anti-infective into Peripheral Vein, Percutaneous Approach (ICD-10-PCS; 2019-06-03)
DX: K57.32 Diverticulitis of large intestine without perforation or abscess without bleeding (principal); K52.9 Noninfective gastroenteritis and colitis, unspecified; E87.6 Hypokalemia; Z86.73 Personal history of transient ischemic attack (TIA), and cerebral infarction without residual deficits; H54.7 Unspecified visual loss; Z98.84 Bariatric surgery status; E66.9 Obesity, unspecified; Z68.33 Body mass index [BMI] 33.0-33.9, adult; Z88.1 Allergy status to other antibiotic agents; Z90.49 Acquired absence of other specified parts of digestive tract; Z90.710 Acquired absence of both cervix and uterus
CPT/HCPCS: 36415; 36569; 74177; 80048; 80053; 81001; 83605; 85025; 85027; 86140; 87040; 87086; 94762; 96361; 96374; 96376; 99285-25; A9270-GY; C1751; J1170; J1335; J2001; J2405; J2543; J2930; J3480; J7030; J7050; J7120

== ENCOUNTER 2019-11-07 14:36 | Inpatient (IN) | payer BC ==
[2019-11-07] MEDS ORDERED: HYDROmorphone 0.5 MG/0.5 ML Syringe IVPUSH ONE (15:57)
[2019-11-07] MEDS ORDERED: Ondansetron 4 MG/2 ML SDV IVPUSH ONE (15:57)
[2019-11-07] MEDS ORDERED: Sodium Chloride 0.9% 1,000 ML IV SCH ×2 (16:00→17:30)
--- NOTE | 2019-11-07 16:03 | EDM.PDOC ---
ED HPI GENERAL MEDICAL PROBLEM - General Chief Complaint: Abdominal Pain Stated Complaint: DIVERUTICULIS FLARE UP Time Seen by Provider: 11/07/19 15:58 Source of Information: Reports: Patient History Limitations: Reports: No Limitations - History of Present Illness INITIAL COMMENTS - FREE TEXT/NARRATIVE: pt arrived with left lower abdomanal pain. She has had problems with diverticulits. She had diverticulitis in April and May. She was hospitalizedat that time. She had a recurrent episode in Oct. This seemed to clear and she had a immediate reoccurenc. She is now having diarrhea-- about 8 stools today. Onset: Gradual Duration: Hour(s):, Intermittent Location: Reports: Abdomen, Other ( She developed very acute pain about 3 am. ) Quality: Reports: Pressure, Sharp Associated Symptoms: Reports: Other (pt has sig diarrhea. 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: Neurological History: Reports: TIA Other Neuro History: recent ministroke Endocrine/Metabolic History: Reports: Obesity/BMI 30+ Hematologic History: Reports: Blood Transfusion(s) - Infectious Disease History Infectious Disease History: Reports: Chicken Pox - Past Surgical History GI Surgical History: Reports: Appendectomy, Cholecystectomy, Colonoscopy, Other (See Below) Other GI Surgeries/Procedures: gastroplasty banding 2001 aprox Female Surgical History: Reports: Hysterectomy Neurological Surgical History: Reports: None Social & Family History - Family History Family Medical History: Noncontributory - Tobacco Use Smoking Status *Q: Never Smoker - Caffeine Use Caffeine Use: Reports: Coffee - Recreational Drug Use Recreational Drug Use: No ED ROS GENERAL - Review of Systems Review Of Systems: See Below Constitutional: Reports: Chills, Malaise, Decreased Appetite HEENT: Reports: No Symptoms Respiratory: Reports: No Symptoms Cardiovascular: Reports: No Symptoms Endocrine: Reports: No Symptoms GI/Abdominal: Reports: Abdominal Pain, Other (pt is having left lower abdomanal pain Pt is having diarrhea-- about 8 stools today. ) : Reports: No Symptoms Musculoskeletal: Reports: No Symptoms Skin: Reports: No Symptoms Neurological: Reports: No Symptoms Psychiatric: Reports: No Symptoms ED EXAM, GI/ABD - Physical Exam Exam: See Below Text/Narrative:: pt arrived with pain in the left lower abdoman. This is her 4 th episode of diverticulitis in less than 1 year. Exam Limited By: No Limitations General Appearance: Alert, Anxious, Moderate Distress Ears: Normal TMs Nose: Normal Inspection Throat/Mouth: Normal Inspection Head: Atraumatic Neck: Normal Inspection Respiratory/Chest: No Respiratory Distress Cardiovascular: Regular Rate, Rhythm GI/Abdominal Exam: Other (pt is very tender in the left lower abdoman. She is guarded. ) (Female) Exam: Deferred Rectal (Female) Exam: Deferred Back Exam: Normal Inspection Extremities: Normal Inspection Neurological: Alert, Oriented, Normal Cognition Psychiatric: Normal Affect, Anxious Course - Vital Signs Last Recorded V/S: Last Vital Signs Temp 36.3 C 11/07/19 14:53 Pulse 90 11/07/19 14:53 Resp 18 11/07/19 14:53 BP 112/78 11/07/19 14:53 Pulse Ox 98 11/07/19 14:53 - Orders/Labs/Meds Orders: Active Orders 24 hr Category Date Time Status CLOS DIFFICILE PCR W/REFLEX [RM] Stat Lab 11/07/19 16:16 Ordered Iopamidol [Isovue-300 (61%)] Med 11/07/19 17:00 Active 140 ml IV ASDIRECTED Sodium Chloride 0.9% [Normal Saline] 1,000 ml Med 11/07/19 16:00 Active IV ASDIRECTED Sodium Chloride 0.9% [Normal Saline] 1,000 ml Med 11/07/19 17:30 Active IV ASDIRECTED Sodium Chloride 0.9% [Normal Saline] 80 ml Med 11/07/19 17:00 Active IV ASDIRECTED Sodium Chloride 0.9% [Saline Flush] Med 11/07/19 16:51 Active 10 ml FLUSH ASDIRECTED PRN Medication Orders Sodium Chloride (Normal Saline) 1,000 mls @ 999 mls/hr IV ASDIRECTED NATALIE Last Admin: 11/07/19 16:13 Dose: 999 mls/hr Sodium Chloride (Normal Saline) 80 mls @ 3 mls/sec IV ASDIRECTED NATALIE Last Admin: 11/07/19 17:03 Dose: 3 mls/sec Sodium Chloride (Normal Saline) 1,000 mls @ 999 mls/hr IV ASDIRECTED NATALIE Iopamidol (Isovue-300 (61%)) 140 ml IV ASDIRECTED NATALIE Last Admin: 11/07/19 17:03 Dose: 140 ml Sodium Chloride (Saline Flush) 10 ml FLUSH ASDIRECTED PRN PRN Reason: Keep Vein Open Last Admin: 11/07/19 17:03 Dose: 10 ml Labs: Laboratory Tests 11/07/19 11/07/19 11/07/19 Range/Units 15:46 15:55 15:55 WBC 9.8 (4.5-11.0) K/uL RBC 4.45 (3.30-5.50) M/uL Hgb 12.8 D (12.0-15.0) g/dL Hct 39.5 (36.0-48.0) % MCV 89 (80-98) fL MCH 29 (27-31) pg MCHC 32 (32-36) % Plt Count 358 (150-400) K/uL Neut % (Auto) 74 H (36-66) % Lymph % (Auto) 18 L (24-44) % [place] % (Auto) 7 H (2-6) % Eos % (Auto) 1 L (2-4) % Baso % (Auto) 0 (0-1) % Sodium (140-148) mmol/L Potassium (3.6-5.2) mmol/L Chloride (100-108) mmol/L Carbon Dioxide (21-32) mmol/L Anion Gap (5.0-14.0) mmol/L BUN (7-18) mg/dL Creatinine (0.6-1.0) mg/dL Est Cr Clr Drug Dosing mL/min Estimated GFR (MDRD) (>60) Glucose (74-106) mg/dL Calcium (8.5-10.1) mg/dL Total Bilirubin (0.2-1.0) mg/dL AST (15-37) U/L ALT (12-78) U/L Alkaline Phosphatase (46-116) U/L C-Reactive Protein 1.57 H (0.0-0.3) mg/dL Total Protein (6.4-8.2) g/dL Albumin (3.4-5.0) g/dL Globulin (2.3-3.5) g/dL Albumin/Globulin Ratio (1.2-2.2) Urine Color Yellow (YELLOW) Urine Appearance Clear (CLEAR) Urine pH 5.5 (5.0-8.0) Ur Specific [place] 1.020 (1.008-1.030) Urine Protein Negative (NEGATIVE) mg/dL Urine Glucose (UA) Negative (NEGATIVE) mg/dL Urine Ketones 15 H (NEGATIVE) mg/dL Urine Occult Blood Negative (NEGATIVE) Urine Nitrite Negative (NEGATIVE) Urine Bilirubin Negative (NEGATIVE) Urine Urobilinogen 0.2 (0.2-1.0) EU/dL Ur Leukocyte Esterase Negative (NEGATIVE) Urine RBC 0-5 (0-5) Urine WBC 0-5 (0-5) Ur Epithelial Cells Many Amorphous Sediment Few Urine Bacteria Few Urine Mucus Not seen 11/07/19 Range/Units 15:55 WBC (4.5-11.0) K/uL RBC (3.30-5.50) M/uL Hgb (12.0-15.0) g/dL Hct (36.0-48.0) % MCV (80-98) fL MCH (27-31) pg MCHC (32-36) % Plt Count (150-400) K/uL Neut % (Auto) (36-66) % Lymph % (Auto) (24-44) % [place] % (Auto) (2-6) % Eos % (Auto) (2-4) % Baso % (Auto) (0-1) % Sodium 139 L (140-148) mmol/L Potassium 4.1 (3.6-5.2) mmol/L Chloride 103 (100-108) mmol/L Carbon Dioxide 24 (21-32) mmol/L Anion Gap 16.1 H (5.0-14.0) mmol/L BUN 13 D (7-18) mg/dL Creatinine 0.7 (0.6-1.0) mg/dL Est Cr Clr Drug Dosing 86.52 mL/min Estimated GFR (MDRD) > 60 (>60) Glucose 93 (74-106) mg/dL Calcium 8.6 (8.5-10.1) mg/dL Total Bilirubin 0.5 D (0.2-1.0) mg/dL AST 20 (15-37) U/L ALT 29 (12-78) U/L Alkaline Phosphatase 68 (46-116) U/L C-Reactive Protein (0.0-0.3) mg/dL Total Protein 7.5 (6.4-8.2) g/dL Albumin 3.5 (3.4-5.0) g/dL Globulin 4.0 H (2.3-3.5) g/dL Albumin/Globulin Ratio 0.9 L (1.2-2.2) Urine Color (YELLOW) Urine Appearance (CLEAR) Urine pH (5.0-8.0) Ur Specific [place] (1.008-1.030) Urine Protein (NEGATIVE) mg/dL Urine Glucose (UA) (NEGATIVE) mg/dL Urine Ketones (NEGATIVE) mg/dL Urine Occult Blood (NEGATIVE) Urine Nitrite (NEGATIVE) Urine Bilirubin (NEGATIVE) Urine Urobilinogen (0.2-1.0) EU/dL Ur Leukocyte Esterase (NEGATIVE) Urine RBC (0-5) Urine WBC (0-5) Ur Epithelial Cells Amorphous Sediment Urine Bacteria Urine Mucus Meds: Medications Generic Name Dose Route Start Last Admin Trade Name Freq PRN Reason Stop Dose Admin Sodium Chloride 1,000 mls @ 999 mls/hr 11/07/19 16:00 11/07/19 16:13 Normal Saline IV 999 mls/hr ASDIRECTED NATALIE Administration Sodium Chloride 80 mls @ 3 mls/sec 11/07/19 17:00 11/07/19 17:03 Normal Saline IV 3 mls/sec ASDIRECTED NATALIE Administration Sodium Chloride 1,000 mls @ 999 mls/hr 11/07/19 17:30 Normal Saline IV ASDIRECTED NATALIE Iopamidol 140 ml 11/07/19 17:00 11/07/19 17:03 Isovue-300 (61%) IV 140 ml ASDIRECTED NATALIE Administration Sodium Chloride 10 ml 11/07/19 16:51 11/07/19 17:03 Saline Flush FLUSH 10 ml ASDIRECTED PRN Administration Keep Vein Open Discontinued Medications Generic Name Dose Route Start Last Admin Trade Name Freq PRN Reason Stop Dose Admin Hydromorphone HCl 0.5 mg 11/07/19 15:57 11/07/19 16:13 Dilaudid IVPUSH 11/07/19 15:58 0.5 mg ONETIME ONE Administration Ondansetron HCl 4 mg 11/07/19 15:57 11/07/19 16:11 Zofran IVPUSH 11/07/19 15:58 4 mg ONETIME ONE Administration - Re-Assessments/Exams Free Text/Narrative Re-Assessment/Exam: 11/07/19 18:38 cat desai shows diverticulitis . There is a fluid filled area along the sigmoid colon which is larger than it was in the last cat scan, She has not been able to catch a speciman for clost diff. She has had 2 stools. Departure - Departure Time of Disposition: 18:39 Disposition: Admitted As Inpatient 65 Condition: Fair Clinical Impression: Diverticulitis, Diarrhea, Dehydration - Discharge Information Referrals: Denise Gaytan MD [Primary Care Provider] - Forms: ED Department Discharge Care Plan Goals: admit to Dr grant. Sepsis Event Note - Evaluation Sepsis Screening Result: No Definite Risk - Focused Exam Vital Signs: Vital Signs Temp Pulse Resp BP Pulse Ox 11/07/19 14:53 36.3 C 90 18 112/78 98 Date Exam was Performed: 11/07/19 Time Exam was Performed: 18:34 - My Orders Last 24 Hours: My Active Orders 11/07/19 16:00 Sodium Chloride 0.9% [Normal Saline] 1,000 ml IV ASDIRECTED 11/07/19 16:16 CLOS DIFFICILE PCR W/REFLEX [RM] Stat 11/07/19 16:51 Sodium Chloride 0.9% [Saline Flush] 10 ml FLUSH ASDIRECTED PRN 11/07/19 17:00 Iopamidol [Isovue-300 (61%)] 140 ml IV ASDIRECTED Sodium Chloride 0.9% [Normal Saline] 80 ml IV ASDIRECTED 11/07/19 17:30 Sodium Chloride 0.9% [Normal Saline] 1,000 ml IV ASDIRECTED - Assessment/Plan Last 24 Hours: My Active Orders 11/07/19 16:00 Sodium Chloride 0.9% [Normal Saline] 1,000 ml IV ASDIRECTED 11/07/19 16:16 CLOS DIFFICILE PCR W/REFLEX [RM] Stat 11/07/19 16:51 Sodium Chloride 0.9% [Saline Flush] 10 ml FLUSH ASDIRECTED PRN 11/07/19 17:00 Iopamidol [Isovue-300 (61%)] 140 ml IV ASDIRECTED Sodium Chloride 0.9% [Normal Saline] 80 ml IV ASDIRECTED 11/07/19 17:30 Sodium Chloride 0.9% [Normal Saline] 1,000 ml IV ASDIRECTED
[2019-11-07] MEDS ORDERED: Sodium Chloride 0.9% 10 ML Syringe FLUSH PRN ×2 (16:51→20:09)
[2019-11-07] MEDS ORDERED: Sodium Chloride 0.9% 80 ML IV SCH (17:00)
[2019-11-07] MEDS ORDERED: Iopamidol 612 MG/ML 200 ML Bottle IV SCH (17:00)
--- NOTE | 2019-11-07 18:22 | CRLCT ---
INDICATION: Left lower abdominal pain TECHNIQUE: CT abdomen and pelvis acquired with IV contrast. 100 cc Isovue-300 COMPARISON: 05/31/2019 FINDINGS: Lower chest: Unremarkable. Liver: Unremarkable. Spleen: Unremarkable. Pancreas: Unremarkable. Gallbladder and bile ducts: Cholecystectomy. Kidneys: Unremarkable. Adrenal glands: Unremarkable. GI tract: Evidence of previous gastric surgery. Thickening of the sigmoid colon consistent with diverticulitis. 2.5 centimeter x 1.5 centimeter thin-walled fluid collection lateral to the mid sigmoid colon. This was present on prior study is only slightly increased in size. Vascular structures: Unremarkable. Lymph nodes: Unremarkable. Miscellaneous: Unremarkable. No free air or significant free fluid. Pelvic Organs: Unremarkable. Bones: Unremarkable for age. IMPRESSION: Thickening of the sigmoid colon consistent with diverticulitis. 2.5 centimeter x 1.5 centimeter thin-walled fluid collection lateral to the mid sigmoid colon. This was present on prior study and is slightly increased in size. Walled-off fluid collection cannot be excluded. Fluid filled large bowel proximal to the sigmoid colon. Bowel obstruction cannot be excluded. Cholecystectomy. Dictated by Fred Sarabia MD @ 11/07/2019 6:20:02 PM Please note that all CT scans at this facility use dose modulation, iterative reconstruction, and/or weight-based dosing when appropriate to reduce radiation dose to as low as reasonably achievable. Dictated by: Fred Sarabia MD @ 11/07/2019 18:20:12 (Electronically Signed)
--- NOTE | 2019-11-07 19:33 | PCM.HP.2 ---
H&P History of Present Illness - General Date of Service: 11/07/19 Admit Problem/Dx: Admission Diagnosis/Problem Admission Diagnosis/Problem Diverticulitis Source of Information: Patient, Family, Old Records, Provider, RN Notes Reviewed History Limitations: Reports: No Limitations - History of Present Illness Initial Comments - Free Text/Narative: Ms. Luo is a 49-year-old woman who was admitted through the emergency department with abdominal pain secondary to recurrent diverticulitis. She was first hospitalized at this facility in April 2019 with an episode of severe diverticulitis, she was treated with IV antibiotic therapy and then transition to oral therapy after discharge. She returned in May with a second episode of diverticulitis and received IV antibiotics while in the hospital, followed by 6 weeks of IV antibiotic therapy. The plan had been to proceed with colonoscopy in July followed by partial colon resection for ongoing management of the diverticulitis. Unfortunately during this period of time her was diagnosed with colon cancer and they have been preoccupied with managing his health problems. She had a third episode of diverticular colitis in mid July and was placed on a 10-day course of oral antibiotic therapy with ciprofloxacin and Flagyl. She completed this therapy 5 days ago. Early this morning she awoke with increased suprapubic and left lower quadrant abdominal pain and presented to the emergency room for further evaluation. White blood cell count is within normal range and there is some mild elevation in CRP. CT scan shows a thin-walled fluid collection, possible abscess, slightly increased in size from previous CT scan it also shows evidence of possible partial colon and's obstruction. LLQ Pain Score (Numeric/FACES): 7 - Related Data Allergies/Adverse Reactions: Allergies Allergy/AdvReac Type Severity Reaction Status Date / Time azithromycin [From Zithromax] Allergy Rash Verified 11/07/19 14:50 Home Medications: Home Meds Lactobacillus Rhamnosus GG [Culturelle] 1 cap PO BID #60 cap 04/28/19 [Rx] Acetaminophen [Acetaminophen Extra Strength] 1,000 mg PO QID PRN 11/07/19 [ History] Past Medical History HEENT History: Reports: Impaired Vision Gastrointestinal History: Reports: Diverticulosis [employer] History: Reports: Neurological History: Reports: TIA Other Neuro History: recent ministroke Endocrine/Metabolic History: Reports: Obesity/BMI 30+ Hematologic History: Reports: Blood Transfusion(s) - Infectious Disease History Infectious Disease History: Reports: Chicken Pox - Past Surgical History GI Surgical History: Reports: Appendectomy, Cholecystectomy, Colonoscopy, Other (See Below) Other GI Surgeries/Procedures: gastroplasty banding 2001 aprox Female Surgical History: Reports: Hysterectomy Neurological Surgical History: Reports: None Social & Family History - Family History Family Medical History: Noncontributory - Tobacco Use Smoking Status *Q: Never Smoker - Caffeine Use Caffeine Use: Reports: Coffee - Recreational Drug Use Recreational Drug Use: No H&P Review of Systems - Review of Systems: Review Of Systems: See Below General: Reports: Chills, Weakness, Decreased Appetite. Denies: Fever HEENT: Reports: No Symptoms Pulmonary: Reports: No Symptoms Cardiovascular: Reports: No Symptoms Gastrointestinal: Reports: Abdominal Pain, Diarrhea, Decreased Appetite, Distension, Nausea. Denies: Difficulty Swallowing, Hematemesis, Hematochezia, Melena, Vomiting Genitourinary: Reports: No Symptoms Musculoskeletal: Reports: No Symptoms Skin: Reports: No Symptoms Psychiatric: Reports: No Symptoms Neurological: Reports: No Symptoms Hematologic/Lymphatic: Reports: No Symptoms Immunologic: Reports: No Symptoms Exam - Exam Exam: See Below - Vital Signs Vital Signs: Last Vital Signs Temp 97.4 F 11/07/19 14:53 Pulse 90 11/07/19 14:53 Resp 18 11/07/19 14:53 BP 112/78 11/07/19 14:53 Pulse Ox 98 11/07/19 14:53 Weight: 209 lb 10.554 oz - Exam Quality Assessment: DVT Prophylaxis General: Alert, Oriented, Cooperative, Moderate Distress HEENT: Conjunctiva Clear, Hearing Intact, Mucosa Moist & [place], Normal Nasal Septum, Posterior Pharynx Clear, Pupils Equal Neck: Supple, Trachea Midline, +2 Carotid Pulse wo Bruit Lungs: Clear to Auscultation, Normal Respiratory Effort Cardiovascular: Regular Rate, Regular Rhythm, Normal S1, Normal S2. No: Systolic Murmur, Diastolic Murmur GI/Abdominal Exam: Soft, No Organomegaly, Distended, Tender. No: Guarding, Rigid, Rebound Back Exam: Normal Inspection, Full Range of Motion Extremities: Non-Tender, No Pedal Edema Skin: Warm, Dry, Intact Neurological: Cranial Nerves Intact, Strength Equal Bilateral, Normal Speech, Normal Tone, Sensation Intact. No: Focal Deficit Neuro Extensive - Mental Status: Alert, Oriented x3, Normal Mood/Affect, Normal Cognition, Memory Intact - Patient Data Lab Results Last 24 hrs: Laboratory Results - last 24 hr 11/07/19 11/07/19 11/07/19 Range/Units 15:46 15:55 15:55 WBC 9.8 (4.5-11.0) K/uL RBC 4.45 (3.30-5.50) M/uL Hgb 12.8 D (12.0-15.0) g/dL Hct 39.5 (36.0-48.0) % MCV 89 (80-98) fL MCH 29 (27-31) pg MCHC 32 (32-36) % Plt Count 358 (150-400) K/uL Neut % (Auto) 74 H (36-66) % Lymph % (Auto) 18 L (24-44) % [place] % (Auto) 7 H (2-6) % Eos % (Auto) 1 L (2-4) % Baso % (Auto) 0 (0-1) % Sodium (140-148) mmol/L Potassium (3.6-5.2) mmol/L Chloride (100-108) mmol/L Carbon Dioxide (21-32) mmol/L Anion Gap (5.0-14.0) mmol/L BUN (7-18) mg/dL Creatinine (0.6-1.0) mg/dL Est Cr Clr Drug Dosing mL/min Estimated GFR (MDRD) (>60) Glucose (74-106) mg/dL Calcium (8.5-10.1) mg/dL Total Bilirubin (0.2-1.0) mg/dL AST (15-37) U/L ALT (12-78) U/L Alkaline Phosphatase (46-116) U/L C-Reactive Protein 1.57 H (0.0-0.3) mg/dL Total Protein (6.4-8.2) g/dL Albumin (3.4-5.0) g/dL Globulin (2.3-3.5) g/dL Albumin/Globulin Ratio (1.2-2.2) Urine Color Yellow (YELLOW) Urine Appearance Clear (CLEAR) Urine pH 5.5 (5.0-8.0) Ur Specific [place] 1.020 (1.008-1.030) Urine Protein Negative (NEGATIVE) mg/dL Urine Glucose (UA) Negative (NEGATIVE) mg/dL Urine Ketones 15 H (NEGATIVE) mg/dL Urine Occult Blood Negative (NEGATIVE) Urine Nitrite Negative (NEGATIVE) Urine Bilirubin Negative (NEGATIVE) Urine Urobilinogen 0.2 (0.2-1.0) EU/dL Ur Leukocyte Esterase Negative (NEGATIVE) Urine RBC 0-5 (0-5) Urine WBC 0-5 (0-5) Ur Epithelial Cells Many Amorphous Sediment Few Urine Bacteria Few Urine Mucus Not seen 11/07/19 Range/Units 15:55 WBC (4.5-11.0) K/uL RBC (3.30-5.50) M/uL Hgb (12.0-15.0) g/dL Hct (36.0-48.0) % MCV (80-98) fL MCH (27-31) pg MCHC (32-36) % Plt Count (150-400) K/uL Neut % (Auto) (36-66) % Lymph % (Auto) (24-44) % [place] % (Auto) (2-6) % Eos % (Auto) (2-4) % Baso % (Auto) (0-1) % Sodium 139 L (140-148) mmol/L Potassium 4.1 (3.6-5.2) mmol/L Chloride 103 (100-108) mmol/L Carbon Dioxide 24 (21-32) mmol/L Anion Gap 16.1 H (5.0-14.0) mmol/L BUN 13 D (7-18) mg/dL Creatinine 0.7 (0.6-1.0) mg/dL Est Cr Clr Drug Dosing 86.52 mL/min Estimated GFR (MDRD) > 60 (>60) Glucose 93 (74-106) mg/dL Calcium 8.6 (8.5-10.1) mg/dL Total Bilirubin 0.5 D (0.2-1.0) mg/dL AST 20 (15-37) U/L ALT 29 (12-78) U/L Alkaline Phosphatase 68 (46-116) U/L C-Reactive Protein (0.0-0.3) mg/dL Total Protein 7.5 (6.4-8.2) g/dL Albumin 3.5 (3.4-5.0) g/dL Globulin 4.0 H (2.3-3.5) g/dL Albumin/Globulin Ratio 0.9 L (1.2-2.2) Urine Color (YELLOW) Urine Appearance (CLEAR) Urine pH (5.0-8.0) Ur Specific [place] (1.008-1.030) Urine Protein (NEGATIVE) mg/dL Urine Glucose (UA) (NEGATIVE) mg/dL Urine Ketones (NEGATIVE) mg/dL Urine Occult Blood (NEGATIVE) Urine Nitrite (NEGATIVE) Urine Bilirubin (NEGATIVE) Urine Urobilinogen (0.2-1.0) EU/dL Ur Leukocyte Esterase (NEGATIVE) Urine RBC (0-5) Urine WBC (0-5) Ur Epithelial Cells Amorphous Sediment Urine Bacteria Urine Mucus Result Diagrams: 11/07/19 15:55 11/07/19 15:55 Sepsis Event Note - Evaluation Sepsis Screening Result: No Definite Risk - Focused Exam Vital Signs: Vital Signs Temp Pulse Resp BP Pulse Ox 11/07/19 14:53 97.4 F 90 18 112/78 98 Date Exam was Performed: 11/07/19 Time Exam was Performed: 19:47 *Q Meaningful Use (ADM) - VTE Risk Assess *Q Each Risk Factor Represents 1 Point: Age 41 - 59 years, Obesity ( BMI > 25 kg/m2 ) Total Score 1 Point Risk Factors: 2 Each Risk Factor Represents 2 Points: Major surgery greater than 45 minutes Total Score 2 Point Risk Factors: 2 Each Risk Factor Represents 3 Points: None Total Score 3 Point Risk Factors: 0 Each Risk Factor Represents 5 Points: None Total Score 5 Point Risk Factors: 0 Venous Thromboembolism Risk Factor Score *Q: 4 Problem List Initiated/Reviewed/Updated: Yes Orders Last 24hrs: Active Orders 24 hr Category Date Time Status Patient Status Manage Transfer [TRANSFER] Routine ADT 11/07/19 19:27 Ordered CLOS DIFFICILE PCR W/REFLEX [RM] Stat Lab 11/07/19 16:16 Ordered Iopamidol [Isovue-300 (61%)] Med 11/07/19 17:00 Active 140 ml IV ASDIRECTED Sodium Chloride 0.9% [Normal Saline] 1,000 ml Med 11/07/19 16:00 Active IV ASDIRECTED Sodium Chloride 0.9% [Normal Saline] 1,000 ml Med 11/07/19 17:30 Active IV ASDIRECTED Sodium Chloride 0.9% [Normal Saline] 80 ml Med 11/07/19 17:00 Active IV ASDIRECTED Sodium Chloride 0.9% [Saline Flush] Med 11/07/19 16:51 Active 10 ml FLUSH ASDIRECTED PRN Resuscitation Status Routine Resus Stat 11/07/19 19:28 Ordered Medication Orders Sodium Chloride (Normal Saline) 1,000 mls @ 999 mls/hr IV ASDIRECTED NATALIE Last Admin: 11/07/19 16:13 Dose: 999 mls/hr Sodium Chloride (Normal Saline) 80 mls @ 3 mls/sec IV ASDIRECTED NATALIE Last Admin: 11/07/19 17:03 Dose: 3 mls/sec Sodium Chloride (Normal Saline) 1,000 mls @ 999 mls/hr IV ASDIRECTED NATALIE Iopamidol (Isovue-300 (61%)) 140 ml IV ASDIRECTED NATALIE Last Admin: 11/07/19 17:03 Dose: 140 ml Sodium Chloride (Saline Flush) 10 ml FLUSH ASDIRECTED PRN PRN Reason: Keep Vein Open Last Admin: 11/07/19 17:03 Dose: 10 ml Assessment/Plan Comment:: ASSESSMENT AND PLAN RECURRENT DIVERTICULITIS-this is her fourth episode of documented diverticulitis in the past 7 months. Status post recent course of oral antibiotic therapy with ciprofloxacin and Flagyl. CT scan suggest partial colon obstruction and possible abscess. -N.p.o. -IV fluids for hydration -IV Unasyn and Azactam -Surgical consult, Dr. Crowe in a.m. MAINTENANCE ISSUES -DVT prophylaxis; SCUDs -GI prophylaxis; not indicated -Hanson catheter; not indicated -Nutrition; n.p.o. -Nicotine dependence; not required CODE STATUS-FULL CODE ADMISSION STATUS-patient will be admitted to inpatient status, expect at least a 2 night hospital stay for evaluation and management of problems as outlined above. At the time of this admission I do not reasonably expected evaluation and management of this problem will require more than a 96 hour hospital stay. DISPOSITION-anticipate discharge to home after the hospital stay. PRIMARY CARE PROVIDER-Dr. Gaytan - Mortality Measure Prognosis:: Good
[2019-11-07] MEDS ORDERED: Acetaminophen 325 MG Tab PO PRN (20:09)
[2019-11-07] MEDS ORDERED: Ondansetron 4 MG/2 ML SDV IV PRN (20:09)
[2019-11-07] MEDS: Lactobacillus Rhamnosus GG (Probiotic) Cap PO SCH (20:46)
[2019-11-07] MEDS: Ampicillin/Sulbactam Na 1.5 GM in Sodium Chloride 0.9% 50 ML IV SCH (20:46)
[2019-11-07] MEDS: HYDROmorphone 0.5 MG/0.5 ML Syringe IVPUSH PRN (20:47)
[2019-11-07] MEDS: Aztreonam 1 GM in Sodium Chloride 0.9% 100 ML IV SCH (21:40)
[2019-11-08] MEDS: Ampicillin/Sulbactam Na 1.5 GM in Sodium Chloride 0.9% 50 ML IV SCH ×4 (02:53→20:33)
[2019-11-08] MEDS: Aztreonam 1 GM in Sodium Chloride 0.9% 100 ML IV SCH ×3 (05:24→22:29)
[2019-11-08] MEDS: Sodium Chloride 0.9% 1,000 ML IV SCH ×2 (05:26→13:55)
[2019-11-08] MEDS: HYDROmorphone 0.5 MG/0.5 ML Syringe IVPUSH PRN ×3 (05:43→22:22)
[2019-11-08] MEDS ORDERED: Ketamine 500 MG/5 ML MDV IV SCH ×2 (08:00→08:15)
[2019-11-08] MEDS: Lactobacillus Rhamnosus GG (Probiotic) Cap PO SCH ×2 (09:05→20:33)
--- NOTE | 2019-11-08 10:25 | PCM.PN ---
- General Info Date of Service: 11/08/19 Subjective Update: Ms. Luo been stable since admission last night with good vital signs and no significant fevers. Abdominal pain has improved modestly compared to admission , no nausea or vomiting, loose stools have improved. She has been seen and evaluated by Dr. Crowe earlier this morning with the plan for surgery tomorrow morning. - Review of Systems General: Reports: No Symptoms Pulmonary: Reports: No Symptoms Cardiovascular: Reports: No Symptoms Gastrointestinal: Reports: Abdominal Pain. Denies: Constipation, Diarrhea, Difficulty Swallowing, Nausea, Vomiting - Patient Data Vitals - Most Recent: Last Vital Signs Temp 97.0 F 11/08/19 07:00 Pulse 72 11/08/19 07:00 Resp 18 11/08/19 07:00 BP 110/73 11/08/19 07:00 Pulse Ox 98 11/08/19 07:39 Weight - Most Recent: 210 lb 3.2 oz I&O - Last 24 Hours: Intake & Output 11/07/19 11/08/19 11/08/19 22:59 06:59 14:59 Intake Total 150 1113 50 Output Total 500 800 450 Balance -350 313 -400 Lab Results Last 24 Hours: Laboratory Results - last 24 hr 11/07/19 11/07/19 11/07/19 Range/Units 15:46 15:55 15:55 WBC 9.8 (4.5-11.0) K/uL RBC 4.45 (3.30-5.50) M/uL Hgb 12.8 D (12.0-15.0) g/dL Hct 39.5 (36.0-48.0) % MCV 89 (80-98) fL MCH 29 (27-31) pg MCHC 32 (32-36) % Plt Count 358 (150-400) K/uL Neut % (Auto) 74 H (36-66) % Lymph % (Auto) 18 L (24-44) % [place] % (Auto) 7 H (2-6) % Eos % (Auto) 1 L (2-4) % Baso % (Auto) 0 (0-1) % Sodium (140-148) mmol/L Potassium (3.6-5.2) mmol/L Chloride (100-108) mmol/L Carbon Dioxide (21-32) mmol/L Anion Gap (5.0-14.0) mmol/L BUN (7-18) mg/dL Creatinine (0.6-1.0) mg/dL Est Cr Clr Drug Dosing mL/min Estimated GFR (MDRD) (>60) Glucose (74-106) mg/dL Calcium (8.5-10.1) mg/dL Magnesium (1.8-2.4) mg/dL Total Bilirubin (0.2-1.0) mg/dL AST (15-37) U/L ALT (12-78) U/L Alkaline Phosphatase (46-116) U/L C-Reactive Protein 1.57 H (0.0-0.3) mg/dL Total Protein (6.4-8.2) g/dL Albumin (3.4-5.0) g/dL Globulin (2.3-3.5) g/dL Albumin/Globulin Ratio (1.2-2.2) Urine Color Yellow (YELLOW) Urine Appearance Clear (CLEAR) Urine pH 5.5 (5.0-8.0) Ur Specific [place] 1.020 (1.008-1.030) Urine Protein Negative (NEGATIVE) mg/dL Urine Glucose (UA) Negative (NEGATIVE) mg/dL Urine Ketones 15 H (NEGATIVE) mg/dL Urine Occult Blood Negative (NEGATIVE) Urine Nitrite Negative (NEGATIVE) Urine Bilirubin Negative (NEGATIVE) Urine Urobilinogen 0.2 (0.2-1.0) EU/dL Ur Leukocyte Esterase Negative (NEGATIVE) Urine RBC 0-5 (0-5) Urine WBC 0-5 (0-5) Ur Epithelial Cells Many Amorphous Sediment Few Urine Bacteria Few Urine Mucus Not seen 11/07/19 11/08/19 11/08/19 Range/Units 15:55 05:40 05:40 WBC 6.2 (4.5-11.0) K/uL RBC 3.98 (3.30-5.50) M/uL Hgb 11.4 L (12.0-15.0) g/dL Hct 35.5 L (36.0-48.0) % MCV 89 (80-98) fL MCH 29 (27-31) pg MCHC 32 (32-36) % Plt Count 317 (150-400) K/uL Neut % (Auto) 62 (36-66) % Lymph % (Auto) 29 (24-44) % [place] % (Auto) 8 H (2-6) % Eos % (Auto) 2 (2-4) % Baso % (Auto) 0 (0-1) % Sodium 139 L 139 L (140-148) mmol/L Potassium 4.1 3.9 (3.6-5.2) mmol/L Chloride 103 107 (100-108) mmol/L Carbon Dioxide 24 24 (21-32) mmol/L Anion Gap 16.1 H 11.9 (5.0-14.0) mmol/L BUN 13 D 6 L D (7-18) mg/dL Creatinine 0.7 0.6 (0.6-1.0) mg/dL Est Cr Clr Drug Dosing 86.52 100.94 mL/min Estimated GFR (MDRD) > 60 > 60 (>60) Glucose 93 92 (74-106) mg/dL Calcium 8.6 8.0 L (8.5-10.1) mg/dL Magnesium 2.0 (1.8-2.4) mg/dL Total Bilirubin 0.5 D (0.2-1.0) mg/dL AST 20 (15-37) U/L ALT 29 (12-78) U/L Alkaline Phosphatase 68 (46-116) U/L C-Reactive Protein (0.0-0.3) mg/dL Total Protein 7.5 (6.4-8.2) g/dL Albumin 3.5 (3.4-5.0) g/dL Globulin 4.0 H (2.3-3.5) g/dL Albumin/Globulin Ratio 0.9 L (1.2-2.2) Urine Color (YELLOW) Urine Appearance (CLEAR) Urine pH (5.0-8.0) Ur Specific [place] (1.008-1.030) Urine Protein (NEGATIVE) mg/dL Urine Glucose (UA) (NEGATIVE) mg/dL Urine Ketones (NEGATIVE) mg/dL Urine Occult Blood (NEGATIVE) Urine Nitrite (NEGATIVE) Urine Bilirubin (NEGATIVE) Urine Urobilinogen (0.2-1.0) EU/dL Ur Leukocyte Esterase (NEGATIVE) Urine RBC (0-5) Urine WBC (0-5) Ur Epithelial Cells Amorphous Sediment Urine Bacteria Urine Mucus Med Orders - Current: Current Medications Acetaminophen (Tylenol) 650 mg PO Q4H PRN PRN Reason: Pain (Mild 1-3)/fever Neomycin/Polymyxin 1 ml/ (Sodium Chloride 500 ml) 0 ml IRR ONETIME ONE Stop: 11/09/19 06:01 Ropivacaine 47 ml/Dexamethasone 8 mg/Epinephrine HCl 0.4 mg/ Sodium Chloride 30.6 ml 0 ml NERVRT ASDIRECTED [facility] Hydromorphone HCl (Dilaudid) 0.5 mg IVPUSH Q2H PRN PRN Reason: Pain Last Admin: 11/08/19 05:43 Dose: 0.5 mg Ampicillin Sodium/Sulbactam (Sodium 1.5 gm/ Sodium Chloride) 50 mls @ 100 mls/ hr IV Q6H [facility] Last Admin: 11/08/19 09:05 Dose: 100 mls/hr Aztreonam 1 gm/ Sodium (Chloride) 100 mls @ 200 mls/hr IV Q8HR [facility] Last Admin: 11/08/19 05:24 Dose: 200 mls/hr Sodium Chloride (Normal Saline) 1,000 mls @ 125 mls/hr IV ASDIRECTED [facility] Last Admin: 11/08/19 05:26 Dose: 125 mls/hr Ketamine HCl 50 mg/ Sodium (Chloride) 50 mls @ 17.1 mls/hr IV ASDIRECTED [facility] Ketamine HCl (Ketalar) 28 mg IV ASDIRECTED [facility] Lactobacillus Rhamnosus (Culturelle) 1 cap PO BID [facility] Last Admin: 11/08/19 09:05 Dose: 1 cap Ondansetron HCl (Zofran) 4 mg IV Q4H PRN PRN Reason: Nausea/Vomiting Sodium Chloride (Saline Flush) 10 ml FLUSH ASDIRECTED PRN PRN Reason: Keep Vein Open Discontinued Medications Hydromorphone HCl (Dilaudid) 0.5 mg IVPUSH ONETIME ONE Stop: 11/07/19 15:58 Last Admin: 11/07/19 16:13 Dose: 0.5 mg Sodium Chloride (Normal Saline) 1,000 mls @ 999 mls/hr IV ASDIRECTED [facility] Last Admin: 11/07/19 16:13 Dose: 999 mls/hr Sodium Chloride (Normal Saline) 80 mls @ 3 mls/sec IV ASDIRECTED [facility] Last Admin: 11/07/19 17:03 Dose: 3 mls/sec Sodium Chloride (Normal Saline) 1,000 mls @ 999 mls/hr IV ASDIRECTED NATALIE Last Admin: 11/07/19 20:00 Dose: 999 mls/hr Iopamidol (Isovue-300 (61%)) 140 ml IV ASDIRECTED NATALIE Last Admin: 11/07/19 17:03 Dose: 140 ml Ketamine HCl (Ketalar) 0 mg IV BOLUS NATALIE Ketamine HCl (Ketalar) 0 mg IV ASDIRECTED NATALIE Ketamine HCl (Ketalar) 0 mg IV BOLUS NATALIE Ketamine HCl (Ketalar) 0 mg IV ASDIRECTED [facility] Non-Formulary Medication (Tap Block, Pharmacy To Dose) 0 ml NERVRT ONCALL NATALIE Ondansetron HCl (Zofran) 4 mg IVPUSH ONETIME ONE Stop: 11/07/19 15:58 Last Admin: 11/07/19 16:11 Dose: 4 mg Sodium Chloride (Saline Flush) 10 ml FLUSH ASDIRECTED PRN PRN Reason: Keep Vein Open Last Admin: 11/07/19 17:03 Dose: 10 ml - Exam General: Alert, Oriented, Cooperative, Mild Distress Lungs: Clear to Auscultation, Normal Respiratory Effort Cardiovascular: Regular Rate, Regular Rhythm, No Murmurs GI/Abdominal Exam: Soft, No Organomegaly, Tender. No: Distended, Guarding, Rigid, Rebound Extremities: Non-Tender, No Pedal Edema Sepsis Event Note - Evaluation Sepsis Screening Result: No Definite Risk - Focused Exam Vital Signs: Vital Signs Temp Pulse Resp BP Pulse Ox 11/08/19 07:39 98 11/08/19 07:00 97.0 F 72 18 110/73 98 11/08/19 02:57 97.0 F 75 16 96/53 L 97 11/08/19 01:17 97 Date Exam was Performed: 11/08/19 Time Exam was Performed: 10:21 - Problem List Review Problem List Initiated/Reviewed/Updated: Yes - My Orders Last 24 Hours: My Active Orders 11/07/19 19:28 Resuscitation Status Routine 11/07/19 20:00 Ampicillin/Sulbactam Na [Unasyn] 1.5 gm Sodium Chloride 0.9% [Normal Saline] 50 ml IV Q6H 11/07/19 20:06 HYDROmorphone [Dilaudid] 0.5 mg IVPUSH Q2H PRN 12/26/19 20:09 Patient Status [ADT] Routine Ambulate [RC] QID Height and Weight [RC] DAILY Intake and Output [RC] QSHIFT Notify Provider Consults [RC] ASDIRECTED Notify Provider Vital Signs [RC] ASDIRECTED Oxygen Therapy [RC] PRN Peripheral IV Care [RC] . DIRECTED Pulse Oximetry [RC] CONTINUOUS Up With Assistance [RC] ASDIRECTED Up to Chair [RC] QID VTE/DVT Education [RC] Per Unit Routine Vital Signs [RC] Q4H Consult to Physician [CONS] Routine Acetaminophen [Tylenol] 650 mg PO Q4H PRN Ondansetron [Zofran] 4 mg IV Q4H PRN Sodium Chloride 0.9% [Normal Saline] 1,000 ml IV ASDIRECTED Sodium Chloride 0.9% [Saline Flush] 10 ml FLUSH ASDIRECTED PRN Peripheral IV Insertion Adult [OM.PC] Routine Sequential Compression Device [OM.PC] Per Unit Routine 11/07/19 21:00 Lactobacillus Rhamnosus GG [Culturelle] 1 cap PO BID 11/07/19 22:00 Aztreonam [Azactam] 1 gm Sodium Chloride 0.9% [Normal Saline] 100 ml IV Q8HR 11/07/19 Dinner Nothing per Oral Now Diet [DIET] - Plan Plan:: ASSESSMENT AND PLAN RECURRENT DIVERTICULITIS-this is her fourth episode of documented diverticulitis in the past 7 months. Status post recent course of oral antibiotic therapy with ciprofloxacin and Flagyl. CT scan suggest partial colon obstruction and possible abscess. -N.p.o. -IV fluids for hydration -IV Unasyn and Azactam -Surgery in a.m. per Dr. Crowe MAINTENANCE ISSUES -DVT prophylaxis; SCUDs -GI prophylaxis; not indicated -Hanson catheter; not indicated -Nutrition; n.p.o. -Nicotine dependence; not required CODE STATUS-FULL CODE ADMISSION STATUS-patient will be admitted to inpatient status, expect at least a 2 night hospital stay for evaluation and management of problems as outlined above. At the time of this admission I do not reasonably expected evaluation and management of this problem will require more than a 96 hour hospital stay. DISPOSITION-anticipate discharge to home after the hospital stay. PRIMARY CARE PROVIDER-Dr. Gaytan Hospitalist service will sign off on the patient at this time, if we can be of further assistance in medical management during hospitalization please feel free to reconsult.
[2019-11-09] MEDS: Sodium Chloride 0.9% 1,000 ML IV SCH (00:56)
[2019-11-09] MEDS: Ampicillin/Sulbactam Na 1.5 GM in Sodium Chloride 0.9% 50 ML IV SCH ×4 (02:52→19:55)
[2019-11-09] MEDS: Aztreonam 1 GM in Sodium Chloride 0.9% 100 ML IV SCH ×3 (05:35→21:43)
[2019-11-09] MEDS ORDERED: Neomycin/Polymyxin B 1 ML, Sodium Chloride 0.9% 500 ML IRR ONE ×2 (06:00)
[2019-11-09] MEDS ORDERED: Lidocaine 1% with EPINEPHrine 1:100,000 50 ML MDV ONE (06:39)
[2019-11-09] MEDS ORDERED: Bupivacaine 0.5% 50 ML MDV ONE (06:39)
[2019-11-09] MEDS ORDERED: Rocuronium 50 MG/5 ML Vial ONE ×2 (07:21→11:11)
[2019-11-09] MEDS ORDERED: fentaNYL 250 MCG/5 ML SDV ONE ×3 (07:21→10:16)
[2019-11-09] MEDS ORDERED: Dexamethasone 4 MG/ML SDV ONE (07:21)
[2019-11-09] MEDS ORDERED: Succinylcholine 200 MG/10 ML MDV ONE (07:21)
[2019-11-09] MEDS ORDERED: Propofol 200 MG/20 ML SDV ONE (07:21)
[2019-11-09] MEDS ORDERED: Glycopyrrolate 0.2 MG/ML 5 ML MDV ONE (07:21)
[2019-11-09] MEDS ORDERED: Ondansetron 4 MG/2 ML SDV ONE (07:21)
[2019-11-09] MEDS ORDERED: Neostigmine Methylsulfate 1 MG/ML 5 ML Syringe ONE (07:21)
[2019-11-09] MEDS: HYDROmorphone 0.5 MG/0.5 ML Syringe IVPUSH PRN (07:36)
[2019-11-09] MEDS ORDERED: Ketamine 500 MG/5 ML MDV IV SCH ×3 (08:00)
[2019-11-09] MEDS ORDERED: Ketamine 50 MG in Sodium Chloride 0.9% 49.5 ML IV SCH (08:00)
[2019-11-09] MEDS ORDERED: Meropenem 500 MG SDV ONE ×3 (09:03→11:21)
[2019-11-09] MEDS ORDERED: Lactated Ringers 1,000 ML ONE ×2 (09:36→10:53)
[2019-11-09] MEDS ORDERED: Labetalol 20 MG/4 ML Syringe ONE (10:39)
[2019-11-09] MEDS ORDERED: Sodium Chloride 0.9% 10 ML ONE (11:21)
[2019-11-09] MEDS: Tranexamic Acid 1,000 MG in Sodium Chloride 0.9% 50 ML IV SCH ×2 (11:30→15:32)
[2019-11-09] MEDS ORDERED: fentaNYL 100 MCG/2 ML SDV ONE (12:21)
[2019-11-09] MEDS ORDERED: Naloxone 0.4 MG/ML SDV IVPUSH PRN (12:23)
[2019-11-09] MEDS ORDERED: Ondansetron 4 MG/2 ML SDV IVPUSH PRN (12:23)
[2019-11-09] MEDS ORDERED: diphenhydrAMINE 50 MG/ML SDV IVPUSH PRN (12:23)
[2019-11-09] MEDS ORDERED: diphenhydrAMINE 25 MG Cap PO PRN (12:23)
[2019-11-09] MEDS ORDERED: Naloxone 0.4 MG/ML SDV IV PRN (12:28)
[2019-11-09] MEDS ORDERED: HYDROmorphone/Normal Saline 15 MG/30 ML PCA IV SCH (12:30)
[2019-11-09] MEDS ORDERED: Sugammadex Sodium 200 MG/2 ML VIAL ONE (13:02)
[2019-11-09] MEDS: Lactated Ringers 1,000 ML IV SCH ×2 (13:29→21:46)
[2019-11-09] MEDS ORDERED: hydrOXYzine HCL 100 MG/2 ML SDV IM ONE (13:29)
[2019-11-09] MEDS ORDERED: Ondansetron 4 MG/2 ML SDV IVPUSH ONE (14:01)
[2019-11-09] MEDS: Cyclobenzaprine 10 MG Tab PO PRN (14:38)
[2019-11-09] MEDS: Dextrose 5%-Lactated Ringers 1,000 ML IV SCH (15:37)
[2019-11-09] MEDS: Metoclopramide 10 MG/2 ML SDV IVPUSH SCH ×2 (17:19→21:44)
[2019-11-09] MEDS: Lactobacillus Rhamnosus GG (Probiotic) Cap PO SCH (17:20)
[2019-11-09] MEDS: Acetaminophen 500 MG Tab PO SCH ×2 (17:29→21:50)
[2019-11-09] MEDS: Pantoprazole 40 MG Vial IV SCH (17:30)
[2019-11-10] MEDS: Dextrose 5%-Lactated Ringers 1,000 ML IV SCH ×3 (00:46→21:00)
[2019-11-10] MEDS: Ampicillin/Sulbactam Na 1.5 GM in Sodium Chloride 0.9% 50 ML IV SCH ×4 (01:51→21:00)
[2019-11-10] MEDS: Metoclopramide 10 MG/2 ML SDV IVPUSH SCH ×4 (04:26→22:48)
[2019-11-10] MEDS: Acetaminophen 500 MG Tab PO SCH ×4 (04:26→22:47)
[2019-11-10] MEDS: Aztreonam 1 GM in Sodium Chloride 0.9% 100 ML IV SCH ×3 (05:43→22:48)
[2019-11-10] MEDS ORDERED: Lactated Ringers 500 ML IV SCH (06:15)
[2019-11-10] MEDS: HYDROmorphone/Normal Saline 15 MG/30 ML PCA IV SCH (06:20)
[2019-11-10] MEDS: Cyclobenzaprine 10 MG Tab PO PRN ×2 (08:11→17:59)
[2019-11-10] MEDS: Menthol/Methyl Salicylate 85 GM Tube TOP PRN (08:13)
[2019-11-10] MEDS: Lactated Ringers 1,000 ML IV SCH (09:03)
[2019-11-10] MEDS: Docusate Sodium 100 MG Cap PO SCH ×2 (09:04→21:04)
[2019-11-10] MEDS: Bisacodyl 5 MG Tab PO SCH ×2 (09:04→21:04)
[2019-11-10] MEDS: Magnesium Sulfate/Water 2 GM in Premix Bag 1 BAG IV SCH ×3 (09:05→23:03)
[2019-11-10] MEDS: hydrOXYzine HCL 100 MG/2 ML SDV IM PRN (13:18)
[2019-11-10] MEDS: Pantoprazole 40 MG Vial IV SCH (15:32)
[2019-11-11] MEDS: Ampicillin/Sulbactam Na 1.5 GM in Sodium Chloride 0.9% 50 ML IV SCH ×4 (01:54→19:23)
[2019-11-11] MEDS: Metoclopramide 10 MG/2 ML SDV IVPUSH SCH ×4 (03:52→22:34)
[2019-11-11] MEDS: Acetaminophen 500 MG Tab PO SCH ×4 (03:52→22:33)
[2019-11-11] MEDS: Magnesium Sulfate/Water 2 GM in Premix Bag 1 BAG IV SCH ×4 (04:29→22:34)
[2019-11-11] MEDS: Dextrose 5%-Lactated Ringers 1,000 ML IV SCH ×2 (06:21→12:24)
[2019-11-11] MEDS ORDERED: Bupivacaine 0.5% 50 ML MDV ONE (06:51)
[2019-11-11] MEDS ORDERED: Lidocaine 1% with EPINEPHrine 1:100,000 50 ML MDV ONE (06:51)
[2019-11-11] MEDS ORDERED: Meropenem 500 MG SDV ONE (06:51)
[2019-11-11] MEDS: Aztreonam 1 GM in Sodium Chloride 0.9% 100 ML IV SCH ×3 (06:53→23:32)
[2019-11-11] MEDS ORDERED: Ondansetron 4 MG/2 ML SDV ONE (07:25)
[2019-11-11] MEDS ORDERED: fentaNYL 100 MCG/2 ML SDV ONE (07:25)
[2019-11-11] MEDS ORDERED: Propofol 200 MG/20 ML SDV ONE (07:25)
--- NOTE | 2019-11-11 08:33 | PN ---
DATE OF SERVICE: 11/08/2019 SUBJECTIVE: Clara reports her pain is controlled. She has been using Dilaudid IV as needed. She is n.p.o. Bloating is less painful. Afebrile. Continues on antibiotics. REVIEW OF SYSTEMS: Remainder of review of systems negative for any pertinent positives and negatives. OBJECTIVE: GENERAL: lCara Lindsay is a pleasant 49-year-old female. She is alert and orientated. VITAL SIGNS: TPR 97, 72, 18, and blood pressure is 110/73. HEENT: Negative. NECK: Supple. HEART: Regular rate and rhythm. LUNGS: Clear. ABDOMEN: Tenderness is noted in the right and left lower abdominal quadrants. Minimal distention. EXTREMITIES: Without peripheral edema. NEURO: Cranial nerves 2 through 12 intact. PSYCHIATRIC: Mood and affect appropriate. SKIN: Without rash. ASSESSMENT: Diverticulitis. PLAN: 1. Schedule and have consent signed for right sigmoid colon resection, TAP block, ketamine bolus, ketamine drip, general anesthesia. Scheduled for 11/09/2019. Surgeon, Ernie Crowe MD. 2. Two hours preop, 750 mL saline enema. 3. Neosporin G.U. Irrigant per rectum, 2 hours prior to surgery. 4. Incentive spirometer. Use 10 times every hour while awake, one day preop and to continue throughout hospitalization, and one week postop. After preoperative evaluation and discussion of possible risks and possible complications, the patient wished to proceed with surgical procedure. 5. We will evaluate p.r.n. or in a.m. Karen Jefferson PA-C /[id number]
[2019-11-11] MEDS: Docusate Sodium 100 MG Cap PO SCH ×2 (08:38→20:17)
[2019-11-11] MEDS: Bisacodyl 5 MG Tab PO SCH ×2 (08:39→20:17)
[2019-11-11] MEDS: HYDROmorphone/Normal Saline 15 MG/30 ML PCA IV SCH (10:32)
--- NOTE | 2019-11-11 11:25 | PN ---
DATE OF SERVICE: 11/10/2019 The patient has been afebrile with stable vital signs. Urine output has been adequate other than, at around 0500 hours, was below the 30 mL an hour rate, and she was given a bolus. She had a quite large operation, and we will continue the IV rate going fairly fast and begin some backing down this evening. Otherwise, her labs have shown hemoglobin down to 9.4 from 11.4 preoperatively, which is about what I would expect, given the intraoperative blood loss, and otherwise the only significant other problem is her magnesium is quite low at 1.4. We will supplement that IV over the next 72 hours. Otherwise, we will just have her takes little sips of clear liquids today and begin some oral bowel stimulation, and she will have a delayed primary closure of abdominal incision tomorrow. Ernie Crowe MD /[id number]
--- NOTE | 2019-11-11 12:15 | PN ---
DATE OF SERVICE: 11/11/2019 SUBJECTIVE: Claar is n.p.o. for delayed primary closure. She is postop day 2, having difficulty with heartburn. States that she takes just small sips of water and Ensure Clear, and she feels like it causes a lot of pain in her esophagus and mid epigastric area. She feels better if she is sitting up. Afebrile. Oral intake 120. Urine output via Hanson catheter 1305. FRANCESCO drains have put out 80 and 45 respectively of a light pink drainage. Pain is controlled. REVIEW OF SYSTEMS: Remainder of review of systems negative for any pertinent positives or negatives. LABORATORY DATA: Hemoglobin 7.7, potassium is 3.2, glucose 129. OBJECTIVE: GENERAL: Clara Luo is a pleasant 49-year-old female. She is alert and orientated. VITAL SIGNS: TPR 97.3, 108, 14. Blood pressure 112/61. Her head of bed is up. HEENT: Negative. NECK: Supple. HEART: Regular rate and rhythm. LUNGS: Clear. ABDOMEN: Dressings dry and intact. Abdominal binder is on. FRANCESCO drain as above. EXTREMITIES: Without peripheral edema. SCDs are on. ASSESSMENT: Sigmoid colon resection, left salpingo-oophorectomy, and small bowel resection. Date of surgery, 11/09/2019. Surgeon, Ernie Crowe MD. PLAN: Orders to be written postoperatively. Karen Jefferson PA-C /[id number]
[2019-11-11] MEDS: Potassium Phosphates 20 MMOLE in Sodium Chloride 0.9% 250 ML IV SCH ×2 (16:09→20:20)
[2019-11-11] MEDS: Pantoprazole 40 MG Vial IV SCH (16:19)
[2019-11-12] MEDS: Potassium Phosphates 20 MMOLE in Sodium Chloride 0.9% 250 ML IV SCH (00:12)
[2019-11-12] MEDS: Ampicillin/Sulbactam Na 1.5 GM in Sodium Chloride 0.9% 50 ML IV SCH ×4 (03:31→20:33)
[2019-11-12] MEDS: Acetaminophen 500 MG Tab PO SCH ×4 (03:35→21:14)
[2019-11-12] MEDS: Metoclopramide 10 MG/2 ML SDV IVPUSH SCH ×4 (03:35→21:15)
[2019-11-12] MEDS: Magnesium Sulfate/Water 2 GM in Premix Bag 1 BAG IV SCH ×4 (04:29→23:09)
[2019-11-12] MEDS: Aztreonam 1 GM in Sodium Chloride 0.9% 100 ML IV SCH ×3 (06:19→21:14)
[2019-11-12] MEDS: Dextrose 5%-Lactated Ringers 1,000 ML IV SCH (06:24)
[2019-11-12] MEDS ORDERED: Dextrose 5%-Lactated Ringers 1,000 ML IV SCH (07:15)
--- NOTE | 2019-11-12 08:40 | PN ---
DATE OF SERVICE: 11/12/2019 SUBJECTIVE: Clara had her delayed primary closure yesterday. Hemoglobin went from 7.7 to 7.4. She is asymptomatic, has had 4 bowel movements. Vital signs have been stable, afebrile, up ambulating. Oral intake 1480, urine output 1600. FRANCESCO drain put out 20 mL of a light pink drainage, and she has had 4 bowel movements. REVIEW OF SYSTEMS: Remainder of review of systems negative for any pertinent positives and negatives. OBJECTIVE: GENERAL: Clara Luo is a pleasant 49-year-old female, alert and orientated. VITAL SIGNS: TPR 97.2, 85, 16, blood pressure 102/68. HEENT: Negative. NECK: Supple. HEART: Regular rate and rhythm. LUNGS: Clear. ABDOMEN: Abdominal binder is on. Dressing dry and intact. Aquacel dressing is on. FRANCESCO drain intact, draining as above. EXTREMITIES: SCDs are on and there is no peripheral edema. ASSESSMENT: 1. Sigmoid colon resection, left salpingo-oophorectomy, and small bowel resection. Date of surgery, 11/09/2019. Surgeon, Ernie Crowe MD. 2. Delayed primary closure on 11/11/2019. PLAN: 1. Decrease IV to TKO. 2. Discontinue Entereg. 3. Discontinue Colace. 4. Discontinue dulcolax oral tablets. 5. Advance diet as tolerated. Orders already written. 6. May shower. 7. Unasyn and Azactam discontinued on , 11/14/2019 after a.m. dose. 8. Culturelle probiotic 2 tablets b.i.d. orally. 9. Vitamin B12 1000 mcg IM injection 1 time today. 10.Check ferritin on the blood already drawn today if possible, otherwise redraw. 11.Check CBC, CMP, and phos in a.m. 11/13/2019. 12.Give vitamin bag in lactated Ringer's 1 L today. 13.Good pulmonary toilet. 14.We will evaluate p.r.n. or in a.m. Karen Jefferson PA-C /[id number]
[2019-11-12] MEDS ORDERED: Cyanocobalamin (Vitamin B12) 1,000 MCG/ML SDV IM ONE (09:00)
[2019-11-12] MEDS: Lactobacillus Rhamnosus GG (Probiotic) Cap PO SCH ×2 (09:25→21:13)
[2019-11-12] MEDS ORDERED: MVI, Adult with Vitamin K 10 ML, Thiamine 100 MG, Magnesium Sulfate 2 GM, Folic Acid 1 ... IV ONE ×5 (10:00)
[2019-11-12] MEDS: HYDROmorphone/Normal Saline 15 MG/30 ML PCA IV SCH (14:37)
[2019-11-12] MEDS: Pantoprazole 40 MG Vial IV SCH (16:11)
[2019-11-13] MEDS: Ampicillin/Sulbactam Na 1.5 GM in Sodium Chloride 0.9% 50 ML IV SCH ×2 (02:58→07:30)
[2019-11-13] MEDS: hydrOXYzine HCL 100 MG/2 ML SDV IM PRN ×3 (03:28→18:32)
[2019-11-13] MEDS: Metoclopramide 10 MG/2 ML SDV IVPUSH SCH ×4 (04:03→21:04)
[2019-11-13] MEDS: Magnesium Sulfate/Water 2 GM in Premix Bag 1 BAG IV SCH (04:04)
[2019-11-13] MEDS: Acetaminophen 500 MG Tab PO SCH ×4 (04:07→21:04)
[2019-11-13] MEDS: Aztreonam 1 GM in Sodium Chloride 0.9% 100 ML IV SCH (05:48)
[2019-11-13] MEDS ORDERED: Furosemide 20 MG/2 ML VIAL IV SCH (07:30)
[2019-11-13] MEDS: Docusate Sodium 100 MG Cap PO SCH ×2 (08:35→21:03)
[2019-11-13] MEDS: Bisacodyl 5 MG Tab PO SCH ×2 (08:35→21:03)
[2019-11-13] MEDS: Potassium Chloride 20 MEQ Tab.ER PO SCH ×3 (08:35→18:18)
[2019-11-13] MEDS: Lactobacillus Rhamnosus GG (Probiotic) Cap PO SCH ×2 (08:35→21:03)
[2019-11-13] MEDS: oxyCODONE 5 MG Tab PO PRN ×5 (08:38→23:20)
[2019-11-13] MEDS ORDERED: Meropenem 500 MG in Sodium Chloride 0.9% 50 ML IV SCH (10:00)
[2019-11-13] MEDS ORDERED: Fluconazole/Normal Saline 400 MG in Premix Bag 200 BAG IV ONE (12:30)
[2019-11-13] MEDS: Meropenem 500 MG in Sodium Chloride 0.9% 50 ML IV SCH ×2 (13:55→19:47)
[2019-11-13] MEDS ORDERED: Fluconazole/Normal Saline 400 MG in Premix Bag 1 BAG IV ONE (15:00)
[2019-11-13] MEDS: Cyclobenzaprine 10 MG Tab PO PRN ×2 (15:20→23:20)
[2019-11-13] MEDS: Pantoprazole 40 MG Vial IV SCH (15:23)
[2019-11-13] MEDS: Menthol/Methyl Salicylate 85 GM Tube TOP PRN (18:22)
[2019-11-14] MEDS: Meropenem 500 MG in Sodium Chloride 0.9% 50 ML IV SCH ×3 (02:53→13:08)
[2019-11-14] MEDS: Metoclopramide 10 MG/2 ML SDV IVPUSH SCH ×2 (03:37→10:01)
[2019-11-14] MEDS: oxyCODONE 5 MG Tab PO PRN ×3 (03:37→12:07)
[2019-11-14] MEDS: Acetaminophen 500 MG Tab PO SCH ×2 (04:12→10:01)
[2019-11-14] MEDS: Docusate Sodium 100 MG Cap PO SCH (08:47)
[2019-11-14] MEDS: Lactobacillus Rhamnosus GG (Probiotic) Cap PO SCH (08:47)
--- NOTE | 2019-11-14 09:25 | DISCH ---
ADMISSION DIAGNOSES: 1. Diverticulitis. 2. Abdominal pain secondary to recurrent diverticulitis. DISCHARGE DIAGNOSES: 1. Exploratory laparotomy with lysis of adhesions. 2. Resection of left colon and portion of rectum with coloproctostomy. 3. Drainage of pericolonic abscess. 4. Small bowel resection. 5. Left salpingo-oophorectomy. 6. Mobilization of omentum into rectum. POSTOPERATIVE DIAGNOSES: 1. Perforated sigmoid colon diverticulitis with pericolonic abscess. 2. Segment of small bowel adherent to inflammatory mass. 3. Left ovary abscess with focal hematoma. Date of surgery: 11/09/2019. Surgeon: Ernie Crowe MD. 4. Delayed primary closure for open abdominal incision on 11/12/2019. Surgeon: Ernie Crowe MD. 5. Postop low hemoglobin requiring 1 unit of packed red blood cells. Hemoglobin 7.2, blood transfusion on 11/13/2019. HISTORY: Clara Luo is a 49-year-old female with several-year history of abdominal pain secondary to diverticulitis with symptoms increasingly worsening with requirement of IV antibiotics. She was hospitalized on 11/07/2019 with a flare-up of diverticulitis. Her last hospitalization prior to this was April and again in May. She was started on antibiotic therapy and the tenderness seemed to not improve, and on 11/09/2019, she had her operative procedure with delayed primary closure on 11/11/2019. She had no operative complications. She remained on antibiotics. Her hemoglobin was 12.8 on admission and the lowest was 7.2 on 11/13/2019, which she received 1 unit of packed red blood cells on that day. Pain was managed. Her activity was good. Vital signs remained stable. She had 1 day of fluid retention on 11/13/2019, and was given IV Lasix and this seemed to improve. Activity was good. Tolerated a regular diet. Having multiple bowel movements. Received dietary instruction for an albumin of 2.2. Pain was well managed and she was able to be discharged to home on 11/14/2019. PHYSICAL EXAMINATION: GENERAL: Clara Luo is a 49-year-old female. VITAL SIGNS: Height is 5 feet 5 inches, weight is 121 pounds, BMI is 20. TPR is 98.9, 82, 16, blood pressure is 108/72. HEENT: Negative. NECK: Supple. HEART: Regular rate and rhythm. LUNGS: Clear. SKIN: Incision is stapled. Aquacel is on. FRANCESCO drain is in the incision and has been draining 35 mL over the past 24 hours, so will be left in. EXTREMITIES: Reveal trace peripheral edema. NEUROLOGIC: Intact. PSYCHIATRIC: Mood and affect appropriate. DISPOSITION: Discharged to home. CONDITION: Stable and improving. FOLLOWUP: Appointment with Ernie Crowe MD, at [facility] on 11/20/2019 at 12:15 p.m. She is to come at 11:45 to have a CBC and CMP drawn. HOME MEDICATIONS: 1. Oxycodone 5 mg every 6 hours p.r.n. pain, #42. 2. Tylenol 1000 mg oral q.6 hours. 3. Colace 100 mg oral daily. 4. Diflucan 1 daily #3. 5. Lasix 20 mg oral daily #3. 6. Potassium chloride 20 mEq oral daily #3. 7. She is to resume her home medication of probiotics 1 b.i.d. DIET: Usual diet as tolerated. Drink 8 to 10 glasses of water a day. ACTIVITY: No lifting greater than 10 pounds for 6 weeks. Other activity: Walk at least 6 times daily inside your home. Driving: Do not drive for 1 week and while on pain medication. Shower/bathing: May shower. Wound incision care. Keep site clean and dry. Wear abdominal binder for 6 weeks and then as tolerated. SPECIAL INSTRUCTIONS: Use incentive spirometer 10 times every hour while awake. Notify provider if any fever, increased pain, nausea, or vomiting. She should call up clinic at [phone] if any problems during clinic hours. If after clinic hours, to call the hospital at [phone].
[2019-11-14] MEDS ORDERED: Fluconazole/Normal Saline 200 MG in Premix Bag 1 BAG IV SCH ×2 (12:00→15:00)
--- NOTE | 2019-11-14 14:52 | PN ---
DATE OF SERVICE: 11/13/2019 Overnight, the patient has been complaining of some increasing pain in the right lower quadrant. Examination showed it to be mildly distended but not problematic in terms of the exam. Of note, vital signs all look good, heart rate in the 80s, and respiratory rate 16 to 18, blood pressures 90s to 105/50s to 60s, and urine output has remained fairly good. She is quite edematous. Hemoglobin is down a little bit at 7.2, and I think that at this point we will give her 1 unit of packed RBCs today and then give her Lasix 10 mg after that transfusion is completed. Potassium is marginally low as well, and we will give her 60 mEq orally. I minor pinpoint leaks at the anastomosis. We will switch over to meropenem 500 IV q.6 hours, and then we will discontinue the MOISTURE METER READER and give her oral pain medication. She has not moved her bowels over the last 24 hours. We will give her some additional bowel stimulation, recheck some laboratories tomorrow, and otherwise maximize activity and work with pulmonary toilet. Ernie Crowe MD /[id number]
--- NOTE | 2019-11-15 08:36 | PN ---
DATE OF SERVICE: 11/11/2019 The patient has been afebrile with stable vital signs. Complaining of little bit of epigastric fullness. No nausea per se. She has not moved her bowels or had flatus as of yet, otherwise looks to be stable. The plan is to proceed with delayed primary closure of open abdominal incision this morning. The pre-existing Beni-Lubin drain is putting out more or less serous type of fluid and probably due to the thickness of the adipose layer. A small drain will be placed in the subcutaneous tissue at the time of the closure. Otherwise, we will get the Hanson catheter out today, and we will not advance her diet until she starts passing gas and/or moves bowels. Otherwise, maximize activity and work with pulmonary toilet. Ernie Crowe MD /[id number]
--- NOTE | 2019-11-17 14:00 | OR ---
DATE OF PROCEDURE: 11/11/2019 SURGEON: Ernie Crowe MD PREOPERATIVE DIAGNOSIS: Open abdominal incision. POSTOPERATIVE DIAGNOSIS: Open abdominal incision. OPERATIVE PROCEDURE: Delayed primary closure of open abdominal incision. ANESTHESIA: IV block plus sedation. INDICATION FOR PROCEDURE: The patient is status post a complicated left colectomy for diverticulitis with pericolonic abscess. At the time of the original procedure, the primary closure was felt to be contraindicated and the wound was packed open for a planned delayed primary closure at this time. Potential risks including bleeding and infection were reviewed and the patient wishes to proceed. DETAILS OF PROCEDURE: The patient was taken to the operating room and placed in a semi- sitting position to avoid aspiration risk. IV sedation was administered after which the abdominal dressing was taken down. The area was then prepped and draped. Initially, the ultrasound-guided bilateral transversus abdominis plane blocks were then placed after which the incision was anesthetized with 1% lidocaine mixed with Marcaine and irrigated with a meropenem-containing saline solution. A 10-Jamaican round Beni-Lubin drain was then placed through a stab wound near the lower end of the incision and draped across the depths of the incision which was then closed with some 3-0 and 4-0 Vicryl stitch deep and guzman for the skin. Drains were affixed with a 4-0 Vicryl stitch. Dressing was applied. The patient was taken to the recovery room in satisfactory condition. There were no evident complications. Ernie Crowe MD /[id number]
--- NOTE | 2019-11-18 15:10 | OR ---
DATE OF PROCEDURE: 11/09/2019 SURGEON: Ernie Crowe MD PREOPERATIVE DIAGNOSIS: Persistent (now resolving) sigmoid colon diverticulitis with pericolonic abscess. POSTOPERATIVE DIAGNOSIS: Perforated sigmoid colon diverticulitis with: 1. Pericolonic abscess. 2. Segment of small bowel adherent to inflammatory mass. 3. Left ovary involved in adhesions and bleeding into abscess cavity adjacent to the area of diverticulitis. PROCEDURES PERFORMED: Exploratory laparotomy with lysis of adhesions and: 1. Left colon resection with a portion of upper rectum with coloproctostomy (33913). 2. Drainage of pericolonic abscess (85133). 3. Small bowel resection (91784). 4. Left salpingo-oophorectomy (38305). 5. Mobilization of omentum into pelvis to displace small bowel from the pelvic wall surfaces (03704). 6. Mobilization of splenic flexure of the colon as part of colon resection (92145). ANESTHESIA: General. INDICATION FOR PROCEDURE: Please see previous progress notes. The patient has had several month history of persistent diverticulitis and continues to have ongoing inflammation and persistent and slightly enlarging pericolonic abscess. Plan is to proceed with colon resection. Planned coloproctostomy will be undertaken. She is aware there is some possibility of needing a colostomy either with the original procedure or if other complications develop, such as anastomotic leak. Potential risks otherwise including bleeding, infection, injury to underlying viscera, injury to the urinary tract, as well as the possibility of cardiopulmonary, septic, or hemorrhagic complications leading to were discussed, and the patient wishes to proceed. DETAILS OF PROCEDURE: The patient was taken to the operating room and placed in a supine position. After general endotracheal anesthesia was induced, she was converted to a lithotomy position. A Hanson catheter was inserted and the abdomen prepped and draped. A midline incision was initially made from the umbilicus to the pubis, carried down through the full thickness of the abdominal wall to the underlying peritoneal cavity. Some adhesions between the omentum and the abdominal wall and inflammatory mass which was located in the left side of the pelvic inlet were taken down. As time progressed, it became evident that we needed to extend the incision upward, as the amount of inflammation in the descending colon was such that we needed to do anastomosis more or less between the area of the splenic flexure and distal transverse colon to get a satisfactorily soft and uninflamed colon for the subsequent coloproctostomy, and therefore, the incision was extended up to the top of the previous incision she had had for an abdominoplasty. Once the initial dissection was undertaken, the inflammatory mass was bluntly dissected away from the pelvic sidewall. As this was entered, pericolonic abscess was drained. This measured around a tablespoon in terms of volume, and cultures were obtained. As one further mobilized the area of inflammation away from the pelvic wall, it became evident that the left tube and ovary were adherent into the wall of the abscess cavity and in fact had bled into those surfaces, probably from an ovulatory event. Given this, the left tube and ovary were then also excised by means of CARLTON stapler. A segment of small bowel was adherent to the area of inflammation as well. As this was peeled off, this was significantly deserosalized, and at that point, roughly a 4 cm segment of small bowel was divided proximally and distally to that point of deserosalization with CARLTON guzman and delivered from the field. Small bowel continuity was accomplished with an internal firing of the Endo- CARLTON 60 mm stapler, followed by a 30 mm stapler. Common opening was closed transversely with a purple load and the angles anastomosed were reinforced with some 3-0 Vicryl stitch. The dissection then continued along the upper rectum and more or less mid rectum, where the tissues had remained quite soft. This was dissected circumferentially and then divided with a curved CARLTON black load. At this point, dissection continued along the left pericolic gutter upward to the area of the splenic flexure. The splenic flexure attachments were taken down, as well as some attachments of the omentum to that area of the colon with a combination of blunt and stapled dissection. This eventually allowed mobilization of the splenic flexure and transverse colon down into the pelvis for a tension-free anastomosis. Initially, the colon was divided just proximal to the more intense inflammatory mass with a CARLTON black load, and that site where the bowel would be completely dissected away from any retroperitoneal attachments and then the mesenteric attachments divided with CARLTON guzman, and the specimen was delivered from the field. Off the field, the main inflammatory mass was inspected. There was no evidence of any neoplastic changes, and the patient did appear to be partially obstructed with a lumen through that area only being roughly the size of a standard pencil. At this point, further dissection including full mobilization of the splenic flexure had been accomplished. The colon was then divided more or less at the junction of the descending colon and splenic flexure where the colon at that point became quite soft and viable. The remaining mesenteric attachments to the descending colon were then divided with CARLTON guzman and that specimen also then delivered from the field. The divided area of splenic flexure appeared to have good blood supply at this point and came down into the pelvis without tension. A 28 mm EEA stapler anvil was then placed through a small opening at the end of the splenic flexure of the colon, which was then re- stapled with a purple load and the anvil then brought out through the most dependent portion of that colon through the rectum, and then the main body of the EEA stapler was brought up to the apex of the staple line and united with the anvil and then fired, thus creating the coloproctostomy. Upon removal of stapler, double donuts of mucosa were noted within it. A leak test was accomplished with placement of the colonoscope up to the level just below the anastomosis, and the area of the pelvis was flooded with antibiotic-containing saline solution. Air was insufflated. No bubbles were seen. Intact, well-perfused anastomosis was seen endoscopically. The scope was then withdrawn. At this point, the coloproctostomy was reinforced with more or less circumferential seromuscular 3-0 Vicryl sutures, along with fibrin sealant. The areas were drained somewhat further with antibiotic solution. Two Beni-Lubin drains were then placed in the left mid abdomen, one taken up along the area of the dissection of the descending colon and in the area around the spleen, and the second one down and across the coloproctostomy in the depths of the pelvis. Following this, to displace small bowel away from the pelvis to avoid direct adhesions in that area, the omentum was mobilized downward into the pelvis and sutured to the pelvic sidewalls with 3-0 Vicryl stitch. At this point, the midline fascia was approximated with #2 Vicryl stitch, and the skin and subcutaneous tissue were left open for planned delayed primary closure in 48 hours. The patient was taken to the recovery room in satisfactory condition. Prior to closure, the patient had bilateral transversus abdominis plane blocks placed as well, and the patient tolerated the procedure well. Ernie Crowe MD /[id number]
== END 2019-11-14 14:00 | disposition home or self-care (01) | DRG 221 ==
LOC: JP.ED 14:36 → JP.MS 19:27
PROVIDERS: ADMIT Hospitalist; ATTEND Hospitalist
PROC: 0D1L0ZP Bypass Transverse Colon to Rectum, Open Approach (ICD-10-PCS; 2019-11-09)
PROC: 0DB80ZZ Excision of Small Intestine, Open Approach (ICD-10-PCS; 2019-11-09)
PROC: 0W9G0ZZ Drainage of Peritoneal Cavity, Open Approach (ICD-10-PCS; 2019-11-09)
PROC: 0UT60ZZ Resection of Left Fallopian Tube, Open Approach (ICD-10-PCS; 2019-11-09)
PROC: 0UT10ZZ Resection of Left Ovary, Open Approach (ICD-10-PCS; 2019-11-09)
PROC: 0WQF0ZZ Repair Abdominal Wall, Open Approach (ICD-10-PCS; principal; 2019-11-11)
DX: K57.20 Diverticulitis of large intestine with perforation and abscess without bleeding (principal); N70.92 Oophoritis, unspecified; K66.0 Peritoneal adhesions (postprocedural) (postinfection); E66.9 Obesity, unspecified; Z86.73 Personal history of transient ischemic attack (TIA), and cerebral infarction without residual deficits; Z88.1 Allergy status to other antibiotic agents; Z90.49 Acquired absence of other specified parts of digestive tract; Z68.20 Body mass index [BMI] 20.0-20.9, adult
CPT/HCPCS: 36415; 36430; 74177; 80048; 80053; 81001; 82728; 83735; 84100; 85025; 85027; 86140; 86850; 86900; 86901; 86920; 86922; 87070; 87075; 87205; 88305; 88307; 94762; 99285-25; A9270-GY; C9113; J0171; J0287; J0330; J1100; J1170; J1450; J1940; J2185; J2405; J2704; J2710; J2765; J2795; J3010; J3410; J3411; J3420; J3475; J3490; J7030; J7050; J7120; J7121; P9016; Q9967